=== PATIENT | female | born 1990 | race Caucasian/White ===

== ENCOUNTER 2019-10-14 16:52 | Emergency (ER) | payer MEDICAID, SELFPAY ==
[2019-10-14 16:59] VITALS: BMI 32.8
--- NOTE | 2019-10-14 17:12 | W.ED.EXTPRO ---
HPI - Extremity Problem General: Chief complaint: Extremity Injury, Upper Stated complaint: Left shoulder pain Time Seen by Provider: 10/14/19 17:12 Source: patient Mode of arrival: ambulatory Limitations: no limitations History of Present Illness: HPI Narrative: Patient is a 29-year-old female who presents to ED today with complaints of left shoulder and back pain; this seems to be an intermittent chronic problem for patient as she states she has had it for many months if not a year or so; patient saw her PCP once for this who put her on Zanaflex which seemed to help a little bit; she denies injury or trauma; she denies any radicular pain down into her arm; denies numbness, tingling, loss of sensation, weakness Complaint: joint paint Onset (ago): year(s) Pain Consistency: constant Location: left Radiation: none Exacerbating factors: nothing Associated symptoms: Reports no associated symptoms; Deny chest pain, fever(s) or rash Review of Systems Const: Denies: fever or chills Eyes: Denies: change in vision or blurry vision Card: Denies: chest pain, palpitations, irregular heart rhythm, lightheadedness, syncope or shortness of breath on exertion Resp: Denies: shortness of breath, productive cough or pain on inspiration GI: Denies: abdominal pain, nausea, vomiting, heartburn/indigestion or diarrhea : Denies: painful urination Musc: Reports: joint pain; Denies: neck pain, back pain, extremity swelling, joint swelling, redness, joint warmth, joint stiffness, limited range of motion, muscle cramps, muscle weakness, decrease in muscle mass or deformity Skin/Breast: Denies: rash Neuro: Denies: numbness in extremities, weakness in extremities or changes in sensation PFSH ED PFSH: Statuses (acute, chronic, etc) shown below reflect problem list status as previously entered and may not be historically accurate Social History Smoking and tobacco status: current every day smoker Female Reproductive History: Date of last menstrual period: 10/14/19 Physical Exam Const: COMMON NORMALS: no apparent distress, oriented x3 and alert GENERAL APPEARANCE: cooperative HENMT: COMMON NORMALS: normocephalic and head/scalp atraumatic HEAD & SCALP: normocephalic and atraumatic Neck/C-Spine: COMMON NORMALS: full ROM, no lymphadenopathy, supple and no meningeal signs Resp: COMMON NORMALS: normal respiratory effort, no retractions, no use of accessory muscles and clear to auscultation bilaterally AUSCULTATION: clear to auscultation bilaterally Cardio: COMMON NORMALS: regular rate and regular rhythm RATE: regular rate RHYTHM: regular rhythm : COMMON NORMALS: Yes no CVA tenderness BLADDER/KIDNEY EXAM: Yes no CVA tenderness Back/Pelvis: COMMON NORMALS: no CVA tenderness, thoracic and lumbar spine normal to inspection, thoraco-lumbar ROM normal and straight leg raise negative bilaterally THORACIC SPINE/UPPER BACK: Yes paraspinal muscle tenderness (pt with tenderness between lateral L scapula and thoracic vertebra) Extremity: LEFT UPPER EXTREMITY: Yes shoulder joint (full ROM; TTP lateral edge of L scapula ) Neuro: COMMON NORMALS: oriented x3 SENSORIUM/ORIENTATION: Yes alert MENINGEAL SIGNS: Yes no meningeal signs SENSORY EXAM: Yes extremities (normal bilaterally) MOTOR EXAM: strength 5/5 throughout Skin: COMMON NORMALS: no rashes or lesions noted GENERAL SKIN EXAM: no rashes or lesions noted Discharge Plan Discharge Patient Disposition: Home, Self-Care Clinical Impression: Thoracic nerve root impingement Condition: Stable Prescriptions: New cyclobenzaprine 10 mg tablet 10 mg PO TID Qty: 14 RF: 0 prednisone 10 mg tablet 60 mg PO DAILY 5 Days Qty: 30 RF: 0 Discharge Orders: Discharge Order (Routine); Ordered 10/14/19 Ordered By: Charlene Crenshaw Referrals: Abeba Zuleta FNP [Primary Care Provider] - Abimael Edmonds SENIOR OPERATIONS ANALYST [Family Provider] - Discharge Diet: Usual diet Discharge Activity: Increase activity as tolerated Activity Restrictions/Additional Instructions: Follow up with primary care as soon as possible. She may recommend physical therapy. Discharge Date/Time: 10/14/19 17:37 Coding Level of Care Code ED Supervisor Commissary Production for Chg Fwd Exam Problem Focused
== END 2019-10-14 17:37 | disposition home or self-care (01) ==
PROVIDERS: Emergency Provider Physician Assistant; Family Provider Nurse Practitioner Family; PCP Nurse Practitioner Family
DX: G54.8 Other nerve root and plexus disorders (principal); F17.210 Nicotine dependence, cigarettes, uncomplicated
CPT/HCPCS: 99281

== ENCOUNTER 2019-11-30 12:10 | Outpatient (CLI) | payer MEDICAID, SELFPAY ==
--- NOTE | 2019-11-30 12:24 | XR_ITS ---
WS: [id number] XR shoulder LT min 2V* [id number] REASON FOR EXAM: PAIN L SHOULDER FINDINGS: The acromioclavicular joint was normal. The glenoid humeral articulations normal. The scapula and clavicle show no fractures. XR/XR shoulder LT min 2V* [id number] IMPRESSION: Negative left shoulder.
== END 2019-11-30 12:11 | disposition home or self-care (01) ==
LOC: RAD 12:17
PROVIDERS: Family Provider Nurse Practitioner Family; PCP Nurse Practitioner Family; Visit Provider Nurse Practitioner Family
DX: M25.512 Pain in left shoulder (principal)
CPT/HCPCS: 73030

== ENCOUNTER 2020-02-15 11:40 | Emergency (ER) | payer MEDICAID, SELFPAY ==
[2020-02-15 11:42] VITALS: BMI 35.5
--- NOTE | 2020-02-15 11:44 | ECG_ITS ---
Measurements Intervals [place] Rate: 87 P: 62 [place]: 150 QRS: 22 QRSD: 82 T: 28 QT: 318 QTc: 383 SINUS RHYTHM LEFT ATRIAL ENLARGEMENT [-0.15mV P WAVE IN V1/V2] NONSPECIFIC T-WAVE ABNORMALITY Compared to ECG 12/17/2017 01:38:47 Atrial abnormality now present T-wave abnormality now present Electronically Signed On 02-15-2020 14:15:54 CDT by Kandy Alvarenga M.D. [id number]
--- NOTE | 2020-02-15 11:44 | W.ED.CHESTPA ---
HPI - Chest Pain General: Chief Complaint: Arrhythmia/Palpitations Stated Complaint: symptomatic SVT Time Seen by Provider: 02/15/20 11:41 Source: patient and EMS Mode of arrival: EMS Limitations: no limitations History of Present Illness: HPI narrative: 29-year-old female states she had a history of palpitations in the past. Patient states she start having palpitations this morning at 9 AM. When EMS arrived she was in SVT and has EKG showing SVT. Patient given adenosine and is since converted. States she currently feels much improved and has no symptoms. She said during her palpitations she did have some chest pain. She denies any shortness of breath. She denies any fever or cough. MD complaint: chest pain Associated symptoms: Reports palpitations; Deny abdominal pain, dyspnea, fever(s), nausea or vomiting Review of Systems Const: Denies: fever, chills, body aches or change in appetite Eyes: Denies: blurry vision or eye discomfort ENMT: Denies: throat pain or dental pain Card: Reports: chest pain and palpitations Resp: Denies: shortness of breath GI: Denies: abdominal pain, nausea, vomiting or diarrhea : Denies: painful urination Musc: Denies: neck pain or back pain Skin/Breast: Denies: rash Neuro: Denies: headache Psych: Denies: depression Felix/Lymph: Denies: easy bruising All/Imm: Denies: hives PFSH ED PFSH: Social History Smoking and tobacco status: current every day smoker Female Reproductive History: Date of last menstrual period: 10/14/19 Physical Exam Const: COMMON NORMALS: no apparent distress, oriented x3 and healthy appearing HENMT: COMMON NORMALS: normocephalic and head/scalp atraumatic HEAD & SCALP: normocephalic and atraumatic Eye: COMMON NORMALS: PERRL and EOMs intact bilaterally PUPIL: Yes PERRL Neck/C-Spine: COMMON NORMALS: full ROM and supple Chest: COMMONS NORMALS: inspection of chest normal and palpation of chest normal Resp: COMMON NORMALS: normal respiratory effort, no retractions, no use of accessory muscles and clear to auscultation bilaterally AUSCULTATION: clear to auscultation bilaterally Cardio: COMMON NORMALS: regular rate, regular rhythm and no murmurs RATE: regular rate RHYTHM: regular rhythm GI: COMMON NORMALS: normal to inspection, nondistended, normoactive bowel sounds, soft to palpation, non-tender and no masses PALPATION: Yes soft Extremity: COMMON NORMALS: normal to inspection and full ROM Neuro: COMMON NORMALS: oriented x3, moves all extremities and no focal motor deficits Psych: COMMON NORMALS: mental status grossly normal, thought process normal and cooperative THOUGHT PROCESS: normal thought process Skin: COMMON NORMALS: no rashes or lesions noted and no wounds GENERAL SKIN EXAM: no rashes or lesions noted Course Vital Signs: Vital signs: Vital Signs Temperature 97.8 F 02/15/20 11:52 Pulse Rate 74 02/15/20 12:41 Respiratory Rate 14 02/15/20 12:41 Blood Pressure 97/69 02/15/20 12:41 Pulse Oximetry 99 02/15/20 12:41 MDM - Chest Pain MDM Narrative: Medical decision making narrative: 29-year-old female presents here with SVT. Patient was converted in route. Patient has been normal sinus rhythm here and has had no symptoms. EKG and x-ray are normal. Patient stable for discharge and will get her follow-up with Dr. Ferrer the next . Patient is return if worsening. Imaging Data^: CXR: Radiologist's impression: [place] [address] XRay Report Signed Patient: Noemi Tran Unit #: [id number] : 1990 Age/Sex: 29 / F ADM Date: 02/15/20 Loc: ER Room/Bed: Attending Dr: Ordering Provider/Ordering MD: Jonas Brownlee MD Date of Service: 02/15/20 Procedure(s): XR chest 1V portable [id number] Accession Number(s): [id number] Report Number: [id number] WS: [id number] XR chest 1V portable [id number] REASON FOR EXAM: cp FINDINGS: The heart and mediastinal interfaces are normal. The lung lee are well aerated. No pneumonia, pulmonary edema, pleural effusion, pneumothorax, or mass effect. The hilum and apices are normal. XR/XR chest 1V portable [id number] IMPRESSION: Negative chest for active pathology. EKG Data^: EKG 1: Attestation: I personally reviewed and interpreted this EKG as follows: EKG interpretation date: 02/15/20 EKG interpretation time: 11:53 Interpretation: nsr hr [address] or t wave abnormalities qrs 82 qtc 362 Discharge Plan Discharge Patient Disposition: Home, Self-Care Clinical Impression: Supraventricular tachycardia Condition: Stable Prescriptions: No Action tizanidine 4 mg tablet 4 mg PO TID PRN (Reason: Muscle Pain) RF: 0 levothyroxine 50 mcg Tablet 50 mcg PO DAILY RF: 0 ergocalciferol (vitamin D2) 1,250 mcg (50,000 unit) capsule 1,250 mcg PO Q7D RF: 0 ProAir HFA 90 mcg/actuation HFA aerosol inhaler 2 puff INHALATION Q6H PRN (Reason: Shortness Of Breath) RF: 0 Vitamin Plus Low Iron 27 mg iron- 1 mg tablet 1 tab PO DAILY RF: 0 Aimovig Autoinjector 140 mg/mL auto-injector 140 mg SUBCUT Q30D RF: 0 Discharge Orders: Discharge Order (Routine); Ordered 02/15/20 Ordered By: Jonas Brownlee Referrals: Kandy Alvarenga MD [Physician] - 02/22/20 12:45 pm Abimael Edmonds APN [Primary Care Provider] - Discharge Diet: Advance as tolerated Discharge Activity: Resume usual activity Patient Instructions: Supraventricular Tachycardia (ED), Valsalva Maneuver (ED) Discharge Date/Time: 02/15/20 12:42 Coding Level of Care Code ED Principal Java Software Engineer for Chg Fwd Exam Comprehensive
--- NOTE | 2020-02-15 11:50 | XR_ITS ---
WS: [id number] XR chest 1V portable [id number] REASON FOR EXAM: cp FINDINGS: The heart and mediastinal interfaces are normal. The lung lee are well aerated. No pneumonia, pulmonary edema, pleural effusion, pneumothorax, or m ass effect. The hilum and apices are normal. XR/XR chest 1V portable [id number] IMPRESSION: Negative chest for active pathology.
[2020-02-15 11:52] VITALS: BP 124/86; PULSE 90; RESP 16; TEMP 36.6; O2SAT 97
--- NOTE | 2020-02-15 12:30 | DCPLANNER ---
manager operational was asked to schedule a follow up appointment for patient with Dr. Alvarenga, at [facility]. manager operational called [facility], spoke with Natalie, a follow up appointment was scheduled for February at 12:[address] Alvarenga. Patient was still in ED when telephonic nurse case manager got appointment, telephonic nurse case manager informed patient of the scheduled appointment.
[2020-02-15 12:41] VITALS: BP 97/69; PULSE 74; RESP 14; O2SAT 99
--- NOTE | 2020-03-28 14:37 | DCPLANNER ---
Patient did attend appointment with [facility].
== END 2020-02-15 12:42 | disposition home or self-care (01) ==
PROVIDERS: Emergency Provider Emergency Medicine; PCP Nurse Practitioner Family
DX: I47.1 Supraventricular tachycardia (principal); F17.210 Nicotine dependence, cigarettes, uncomplicated
CPT/HCPCS: 12345; 71045; 93005; 99282; 99283

== ENCOUNTER 2020-03-04 02:04 | Emergency (ER) | payer MEDICAID, SELFPAY ==
[2020-03-04 02:06] VITALS: BP 112/74; PULSE 86; RESP 18; TEMP 36.9; O2SAT 98; BMI 32.9
--- NOTE | 2020-03-04 02:11 | XR_ITS ---
WS: [id number] PORTABLE CHEST HISTORY: Acute onset of chest pain. COMPARISON: 02/15/2020 Lungs are clear and well expanded. No pleural effusion or pneumothorax. Cardiac size: Normal. Mediastinum/Aorta: Normal mediastinum. No osseous abnormality seen. XR/XR chest 1V portable [id number] IMPRESSION: Unremarkable portable chest.
[2020-03-04 02:23] LABS: Basophils % 0.3 %; Eosinophils # 0.1 10^3/uL (0.0-0.8); Eosinophils % 1.2 %; Hematocrit 41.5 % (37.0-47.0); Hemoglobin 13.8 g/dL (11.5-15.3); Lymphocytes # 2.6 10^3/uL (0.8-4.8); Mean Corpuscular HGB Conc 33.3 g/dL (30.0-36.0); Mean Corpuscular Hemoglobin 31.8 pg (28.0-34.0); Mean Corpuscular Volume 95.6 fL (81-99); Mean Platelet Volume 10.3 fL (7.4-10.4); Monocytes # 0.7 10^3/uL (0.2-0.9); Neutrophils % 53.4 %; Nucleated Red Blood Cells % 0 %; Platelet Count 253 10^3/cmm (130-400); Red Blood Count 4.34 10^6/uL (4.1-5.3); Red Cell Distribution Width 12.1 % (12.1-15.1); White Blood Count 7.4 10^3/uL (4.0-10.0)
--- NOTE | 2020-03-04 02:28 | ED_ITS ---
HPI - Chest Pain General: Chief Complaint: Chest Pain Stated Complaint: CP Time Seen by Provider: 03/04/20 02:10 History of Present Illness: HPI narrative: 29-year-old female with a history of SVT. She was placed on metoprolol recently, but she was becoming hypotensive with it, so she stopped 2 days ago. She presents after period of low blood pressure at home, 90/60, with symptoms of numbness and tingling to the right side of her face and arm. She also had some chest discomfort. The symptoms are now mostly resolved, except that she still has some mild right-sided facial numbness. MD complaint: chest discomfort and other Pertinent past history: other (SVT) Onset (ago): hour(s) Prior episodes: Yes Onset: during rest and during exertion Pain location: substernal Relieving factors: nothing Context: recent illness Associated symptoms: Deny dyspnea, fever(s), leg edema, nausea or palpitations Review of Systems Const: Denies: fever(s) Eyes: Denies: change in vision or blurry vision ENMT: Denies: odynophagia, swelling of lips/tongue, bleeding gums, dental pain, change in hearing, epistaxis, post nasal drip or sinus pain Card: Denies: chest pain, palpitations, irregular heart rhythm, edema, swelling of feet/ankles, dyspnea on exertion or orthopnea Resp: Denies: dyspnea, productive cough, non-productive cough or wheezing GI: Denies: nausea : Denies: dysuria, urinary frequency, urinary urgency or hematuria Musc: Denies: neck pain, back pain, joint redness or joint warmth Skin/Breast: Denies: rash, pruritus or erythema Neuro: Denies: headache(s), dizziness, vertigo, confusion or seizure-like activity Psych: Denies: anxiety PFSH ED PFSH: Medical History (Updated 03/04/20 @ 03:41 by Sravan Welsh DO) Anxiety Asthma Family History Other CAD (coronary artery disease) Cancer Social History Smoking and tobacco status: current every day smoker cigarettes Packs smoked per day: 0.25 Alcohol intake: current Alcohol intake frequency: holidays/special occasions only Female Reproductive History: Date of last menstrual period: 01/17/20 Physical Exam Const: GENERAL APPEARANCE: well developed ORIENTATION/CONSCIOUSNESS: Yes oriented to person, Yes oriented to place and Yes oriented to time HENMT: COMMON NORMALS: normocephalic, external ears normal and Normal external nose present HEAD & SCALP: normocephalic; no scalp tenderness FACE & SINUS: normal facial exam NOSE: Normal external nose present and No nasal discharge present EXTERNAL EAR: Yes external ears normal MOUTH: tongue normal Eye: COMMON NORMALS: Equal, round and reactive pupils present, EOMs intact bilaterally and conjunctivae normal EYELID: eyelids normal CONJUNCTIVA: Yes conjunctivae normal PUPIL: Yes Equal, round and reactive pupils present Neck/C-Spine: GENERAL: No tracheal deviation Chest: COMMONS NORMALS: normal inspection of the chest CHEST: No tenderness Resp: COMMON NORMALS: clear to auscultation bilaterally EFFORT & INSPECTION: No tachypneic, No respiratory distress, No retractions, No uses accessory muscles and No tracheal deviation AUSCULTATION: clear to auscultation bilaterally, no rhonchi, no wheezes and lung sounds not diminished Cardio: COMMON NORMALS: regular rate and regular rhythm RATE: regular rate RHYTHM: regular rhythm HEART SOUNDS: no murmurs PERIPHERAL PULSES: radial pulses present GI: INSPECTION: No abdominal distension AUSCULTATION: No Hyperactive bowel sounds present and No Hypoactive bowel sounds present PALPATION: No Guarding due to palpation present (GI) and No Rigid due to palpation PERCUSSION: no dullness to percussion and no tympanic to percussion Neuro: SENSORIUM/ORIENTATION: Yes oriented to person, Yes oriented to place and Yes oriented to time CRANIAL NERVES: Yes CN normal except as noted COORDINATION/BALANCE: [id number] test normal SPEECH: speech normal SENSORY EXAM: Yes extremities (intact) MOTOR EXAM: Pronator motor function not present COORDINATION: [id number] test normal Psych: COMMON NORMALS: mental status grossly normal Skin: COMMON NORMALS: no rashes or lesions noted GENERAL SKIN EXAM: no rashes or lesions noted Course Vital Signs: Vital signs: Vital Signs Temperature 98.4 F 03/04/20 02:06 Pulse Rate 86 03/04/20 02:06 Respiratory Rate 18 03/04/20 02:06 Blood Pressure 112/74 03/04/20 02:06 Pulse Oximetry 98 03/04/20 02:06 MDM - Chest Pain MDM Narrative: Medical decision making narrative: The patient's symptoms are essentially gone. Her blood pressure is 105/75. She is getting a liter of fluid. Head CT is negative. Chest x-ray is negative. Labs are benign. No arrhythmias on the monitor. EKG is normal. She will be allowed discharge. Lab Data: Labs: Lab Results 03/04/20 03/04/20 03/04/20 Range/Units 02:16 02:16 02:16 WBC 7.4 (4.0-10.0) 10^3/ uL RBC 4.34 (4.1-5.3) 10^6/u L Hgb 13.8 (11.5-15.3) g/dL Hct 41.5 (37.0-47.0) % MCV 95.6 (81-99) fL MCH 31.8 (28.0-34.0) pg MCHC 33.3 (30.0-36.0) g/dL RDW 12.1 (12.1-15.1) % Plt Count 253 (130-400) 10^3/c mm MPV 10.3 (7.4-10.4) fL Neut % (Auto) 53.4 % Lymph % (Auto) 35.0 % Elbert % (Auto) 10.0 % Eos % (Auto) 1.2 % Baso % (Auto) 0.3 % Neut # (Auto) 4.0 (1.8-7.7) 10^3/u L Lymph # (Auto) 2.6 (0.8-4.8) 10^3/u L Elbert # (Auto) 0.7 (0.2-0.9) 10^3/u L Eos # (Auto) 0.1 (0.0-0.8) 10^3/u L Baso # (Auto) 0.0 (0.0-0.1) 10^3/u L Nucleated RBC % (a uto) 0 % Nucleated RBCs # 0.0 /100WBC Sodium 138 (136-145) mmol/L Potassium 3.5 (3.5-5.1) mmol/L Chloride 103 (98-107) mmol/L Carbon Dioxide 23 (22-29) mmol/L Anion Gap 15.5 (5-19) BUN 11 (6-20) mg/dL Creatinine 0.6 (0.5-0.9) mg/dL GFR Calculation 117.4 (90-130) mL/min Glucose 113 (65-115) mg/dL Calculated Osmolal ity 283 L (285-295) mOsm/k g Calcium 8.8 (8.5-10.5) mg/dL Total Bilirubin 0.2 (0.15-1.2) mg/dL AST 15 (0-32) U/L ALT 15 (0-33) U/L Alkaline Phosphata se 77 (35-105) IU/L Troponin T Baselin e 6 (0-10) ng/mL Total Protein 6.4 L (6.6-8.7) g/dL Albumin 4.2 (3.5-5.2) g/dL Globulin 2.2 (1.3-4.6) g/dL Discharge Plan Discharge Patient Disposition: Home, Self-Care Clinical Impression: Hypotension Qualifiers: Hypotension type: unspecified hypotension type Qualified Code(s): I95.9 - Hypotension, unspecified Condition: Stable Prescriptions: No Action Aimovig Autoinjector 140 mg/mL auto-injector 140 mg SUBCUT Q30D Qty: 1 RF: 3 tizanidine 4 mg tablet 4 mg PO TID PRN (Reason: Muscle Pain) RF: 0 levothyroxine 50 mcg Tablet 50 mcg PO DAILY RF: 0 ergocalciferol (vitamin D2) 1,250 mcg (50,000 unit) capsule 1,250 mcg PO Q7D RF: 0 albuterol sulfate [ProAir HFA] 90 mcg/actuation HFA aerosol inhaler 2 puff INHALATION Q6H PRN (Reason: Shortness Of Breath) RF: 0 Vitamin Plus Low Iron 27 mg iron- 1 mg tablet 1 tab PO DAILY RF: 0 Discharge Orders: Discharge Order (Routine); Ordered 03/04/20 Ordered By: Sravan Welsh Referrals: Abimael Edmonds BOX BLANK MACHINE FEEDER [Primary Care Provider] - 4-7 days Discharge Diet: Usual diet Discharge Activity: Resume usual activity Patient Instructions: Hypotension (ED) Activity Restrictions/Additional Instructions: Return for repeated episodes of chest discomfort, dizziness, weakness or numbness. Monitor your blood pressure twice daily. Record numbers and give them to your doctor. continue to hold off of your metoprolol until reevaluated by your doctor. Coding Level of Care Code ED Waste Handling Technician for Chg Fwd Exam Comprehensive
--- NOTE | 2020-03-04 02:29 | CTR_ITS ---
PROCEDURE INFORMATION: Exam: CT Head Without Contrast Exam date and time: 03/04/2020 2:41 AM Age: 29 years old Clinical indication: Numbness / parasthesia; Right; Additional info: Numbness R side TECHNIQUE: Imaging protocol: Computed tomography of the head without contrast. Radiation optimization: All CT scans at this facility use at least one of these dose optimization techniques: automated exposure control; mA and/or kV adjustment per patient size (includes targeted exams where dose is matched to clinical indication); or iterative reconstruction. COMPARISON: No relevant prior studies available. RADIATION DOSE METRICS: Total DLP: 797.96 mGy-cm FINDINGS: Brain: Normal. No hemorrhage. Unremarkable white matter. No mass effect. Ventricles: Normal. No ventriculomegaly. Bones/joints: No acute findings. Sinuses: Visualized sinuses are unremarkable. No fluid levels. Mastoid air cells: Visualized mastoid air cells are well aerated. Soft tissues: Unremarkable. CT/CT head wo con* [id number] IMPRESSION: No acute intracranial abnormality. Radiation Dose CTDIVOL = (mGy): DLP = 797.96 (mGy-cm)
[2020-03-04 02:39] LABS: Alanine Aminotransferase 15 U/L (0-33); Albumin Level 4.2 g/dL (3.5-5.2); Alkaline Phosphatase 77 IU/L (35-105); Anion Gap 15.5 (5-19); Aspartate Amino Transferase 15 U/L (0-32); Blood Urea Nitrogen 11 mg/dL (6-20); Calcium 8.8 mg/dL (8.5-10.5); Carbon Dioxide 23 mmol/L (22-29); Chloride 103 mmol/L (98-107); Globulin 2.2 g/dL (1.3-4.6); Glomerular Filtration Rate 117.4 mL/min (90-130); Glucose 113 mg/dL (65-115); Osmolality Calculated 283 mOsm/kg (285-295); Potassium 3.5 mmol/L (3.5-5.1); Sodium 138 mmol/L (136-145); Total Bilirubin 0.2 mg/dL (0.15-1.2); Total Protein 6.4 g/dL (6.6-8.7)
[2020-03-04 02:41] LABS: Troponin(5th) Baseline 6 ng/mL (0-10)
[2020-03-04] MEDS: sodium chloride 0.9% 1,000 ML 999 ML IV (03:49)
[2020-03-04 04:46] VITALS: BP 104/62; PULSE 57; RESP 17; O2SAT 100
== END 2020-03-04 04:48 | disposition home or self-care (01) ==
PROVIDERS: Emergency Provider Emergency Medicine; PCP Nurse Practitioner Family
DX: I95.9 Hypotension, unspecified (principal); F17.210 Nicotine dependence, cigarettes, uncomplicated
CPT/HCPCS: 12345; 70450; 71045; 80053; 84484; 85025; 96360; 99281; 99284; J7030

== ENCOUNTER 2020-04-16 11:06 | Emergency (ER) | payer MEDICAID, SELFPAY ==
[2020-04-16 11:07] VITALS: RESP 14; BMI 32.4
--- NOTE | 2020-04-16 11:09 | ECG_ITS ---
[facility] Test Date: 2020-04-16 Pat Name: Noemi Patel Department: Room: Gender: Female Financial Services Education Consultant: : 1990 Requested By: Jonas Brownlee Order Number: [id number] Chandana MD: Ramirez Valencia M.D. Measurements Intervals [place] Rate: 80 P: 57 [place]: 161 QRS: 22 QRSD: 75 T: 30 QT: 328 QTc: 380 Interpretive Statements SINUS RHYTHM WITH SINUS ARRHYTHMIA POSSIBLE LEFT ATRIAL ENLARGEMENT [-0.1mV P WAVE IN V1/V2] Compared to ECG 02/15/2020 11:53:40 T-wave abnormality no longer present Electronically Signed On 04-16-2020 16:55:14 CDT by Ramirez Valencia M.D. [email or web address] regional medical [email or web address] Colorour lady of mercy hospital - [id number] f
--- NOTE | 2020-04-16 11:09 | XRR_ITS ---
PROCEDURE INFORMATION: Exam: XR Chest, 1 View Exam date and time: 04/16/2020 11:53 AM Age: 29 years old Clinical indication: Type not specified; Patient HX: C/O chest pain/shortness of breath; Additional info: Cp TECHNIQUE: Imaging protocol: XR of the chest Views: 1 view. COMPARISON: CR XR chest 1V portable [id number] 03/04/2020 2:38 AM FINDINGS: Lungs: Mild interstitial prominence without acute airspace disease. Pleural space: No pleural effusion. Heart/Mediastinum: No cardiomegaly. Bones/joints: Unremarkable. XR/XR chest 1V portable [id number] IMPRESSION: No acute airspace or pleural disease.
--- NOTE | 2020-04-16 11:12 | ED_ITS ---
HPI - Arrhythmia/Palpitations General: Chief Complaint: Chest Pain Stated Complaint: CHEST PAIN Time Seen by Provider: 04/16/20 11:09 Source: patient and EMS Mode of arrival: EMS Limitations: no limitations History of Present Illness: HPI narrative: 29-year-old female who states she has a history of SVT states she had heart racing roughly 2 to 3 hours. States her heart rate was in the 130s and 140s. States she felt anxious as well and had some numbness in her extremities. Patient states that it resolved and then had another episode an hour ago that is since resolved as well. She denies any complaints currently but wanted to have her heart checked out. She denies any chest pain or fevers. MD complaint: heart racing Associated symptoms: Deny nausea or vomiting Review of Systems Const: Denies: fever(s), chills, body aches or change in appetite Eyes: Denies: blurry vision or eye discomfort ENMT: Denies: throat pain or dental pain Card: Reports: palpitations Resp: Denies: dyspnea GI: Denies: abdominal pain, nausea, vomiting or diarrhea : Denies: dysuria Musc: Denies: neck pain or back pain Skin/Breast: Denies: rash Neuro: Denies: headache(s) Psych: Denies: depression Felix/Lymph: Denies: easy bruising All/Imm: Denies: urticaria PFS ED PFSH: Medical History (Updated 04/16/20 @ 11:55 by Jonas Brownlee MD) Anxiety Asthma Family History Other CAD (coronary artery disease) Cancer Social History Smoking and tobacco status: current every day smoker cigarettes Packs smoked per day: 0.25 Alcohol intake: current Alcohol intake frequency: holidays/special occasions only Female Reproductive History: Date of last menstrual period: 01/17/20 Physical Exam Const: COMMON NORMALS: no acute distress, patient oriented x3 and healthy appearing HENMT: COMMON NORMALS: normocephalic and atraumatic HEAD & SCALP: normocephalic and atraumatic Eye: COMMON NORMALS: Equal, round and reactive pupils present and EOMs intact bilaterally PUPIL: Yes Equal, round and reactive pupils present Neck/C-Spine: COMMON NORMALS: full ROM and supple Chest: COMMONS NORMALS: normal inspection of the chest and normal palpation of entire chest wall Resp: COMMON NORMALS: normal respiratory effort, No retractions, No use of accessory muscles and clear to auscultation bilaterally AUSCULTATION: clear to auscultation bilaterally Cardio: COMMON NORMALS: regular rate, regular rhythm and No murmurs present (Cardio) RATE: regular rate RHYTHM: regular rhythm GI: COMMON NORMALS: Normal to inspection, nondistended, normoactive bowel sounds present, Soft to palpation, non-tender and no masses PALPATION: Yes Soft to palpation Extremity: COMMON NORMALS: normal to inspection and full ROM Neuro: COMMON NORMALS: patient oriented x3, moves all extremities and no focal motor deficits Psych: COMMON NORMALS: mental status grossly normal, Normal thought process present and cooperative THOUGHT PROCESS: Normal thought process present Skin: COMMON NORMALS: no rashes or lesions noted and no wounds GENERAL SKIN EXAM: no rashes or lesions noted Course Vital Signs: Vital signs: Vital Signs Temperature 97.6 F 04/16/20 11:19 Pulse Rate 78 04/16/20 12:00 Respiratory Rate 14 04/16/20 12:00 Blood Pressure 99/59 04/16/20 12:00 Pulse Oximetry 100 04/16/20 12:00 MDM - Arrhythmia/Palpitations MDM Narrative: Medical decision making narrative: Noemi presents here with palpitations. She could had SVT earlier but EKG and rhythm here is been normal. Patient's lab work and x-ray are normal as well. She is stable for discharge and is to follow-up with primary care doctor in 3 to 5 days return if worsening. She understands and agrees to plan. Lab Data: Labs: Lab Results 04/16/20 04/16/20 04/16/20 Range/Units 11:15 11:15 11:15 WBC 7.6 (4.0-10.0) 10^3/ uL RBC 4.65 (4.1-5.3) 10^6/u L Hgb 14.3 (11.5-15.3) g/dL Hct 43.5 (37.0-47.0) % MCV 93.5 (81-99) fL MCH 30.8 (28.0-34.0) pg MCHC 32.9 (30.0-36.0) g/dL RDW 12.4 (12.1-15.1) % Plt Count 261 (130-400) 10^3/c mm MPV 10.1 (7.4-10.4) fL Neut % (Auto) 73.7 % Lymph % (Auto) 18.0 % [place] % (Auto) 7.4 % Eos % (Auto) 0.5 % Baso % (Auto) 0.3 % Neut # (Auto) 5.6 (1.8-7.7) 10^3/u L Lymph # (Auto) 1.4 (0.8-4.8) 10^3/u L [place] # (Auto) 0.6 (0.2-0.9) 10^3/u L Eos # (Auto) 0.0 (0.0-0.8) 10^3/u L Baso # (Auto) 0.0 (0.0-0.1) 10^3/u L Nucleated RBC % (a uto) 0 % Nucleated RBCs # 0.0 /100WBC Sodium 138 (136-145) mmol/L Potassium 4.0 (3.5-5.1) mmol/L Chloride 104 (98-107) mmol/L Carbon Dioxide 22 (22-29) mmol/L Anion Gap 16.0 (5-19) BUN 16 (6-20) mg/dL Creatinine 0.7 (0.5-0.9) mg/dL GFR Calculation 98.3 (90-130) mL/min Glucose 93 (65-115) mg/dL Calculated Osmolal ity 282 L (285-295) mOsm/k g Calcium 9.0 (8.5-10.5) mg/dL Total Bilirubin 0.4 (0.15-1.2) mg/dL AST 18 (0-32) U/L ALT 19 (0-33) U/L Alkaline Phosphata se 85 (35-105) IU/L Troponin T Baselin e 6 (0-10) ng/L Total Protein 7.2 (6.6-8.7) g/dL Albumin 4.5 (3.5-5.2) g/dL Globulin 2.7 (1.3-4.6) g/dL EKG Data^: EKG 1: Attestation: I personally reviewed and interpreted this EKG as follows: EKG interpretation date: 04/16/20 EKG interpretation time: 11:19 Interpretation: nsr hr [address] or t wave abnormalities qrs 75 qtc 364 Discharge Plan Discharge Patient Disposition: Home, Self-Care Clinical Impression: Palpitations Condition: Stable Prescriptions: No Action Aimovig Autoinjector 140 mg/mL auto-injector 140 mg SUBCUT Q30D Qty: 1 RF: 3 tizanidine 4 mg tablet 4 mg PO TID PRN (Reason: Muscle Pain) RF: 0 levothyroxine 50 mcg Tablet 50 mcg PO DAILY RF: 0 ergocalciferol (vitamin D2) 1,250 mcg (50,000 unit) capsule 1,250 mcg PO Q7D RF: 0 albuterol sulfate [ProAir HFA] 90 mcg/actuation HFA aerosol inhaler 2 puff INHALATION Q6H PRN (Reason: Shortness Of Breath) RF: 0 Vitamin Plus Low Iron 27 mg iron- 1 mg tablet 1 tab PO DAILY RF: 0 Discharge Orders: Discharge Order (Routine); Ordered 04/16/20 Ordered By: Jonas Brownlee Referrals: Kendal Varghese APN [Primary Care Provider] - 1-3 days Discharge Diet: Advance as tolerated Discharge Activity: Resume usual activity Patient Instructions: Palpitations (ED) Discharge Date/Time: 04/16/20 12:01 Coding Level of Care Code ED Earth Science Teacher for Chg Fwd Exam Comprehensive
[2020-04-16 11:19] VITALS: BP 110/76; PULSE 75; RESP 15; TEMP 36.4; O2SAT 95
[2020-04-16 11:24] LABS: Basophils % 0.3 %; Eosinophils % 0.5 %; Hematocrit 43.5 % (37.0-47.0); Hemoglobin 14.3 g/dL (11.5-15.3); Lymphocytes # 1.4 10^3/uL (0.8-4.8); Mean Corpuscular HGB Conc 32.9 g/dL (30.0-36.0); Mean Corpuscular Hemoglobin 30.8 pg (28.0-34.0); Mean Corpuscular Volume 93.5 fL (81-99); Mean Platelet Volume 10.1 fL (7.4-10.4); Monocytes # 0.6 10^3/uL (0.2-0.9); Monocytes % 7.4 %; Neutrophils # 5.6 10^3/uL (1.8-7.7); Neutrophils % 73.7 %; Nucleated Red Blood Cells % 0 %; Platelet Count 261 10^3/cmm (130-400); Red Blood Count 4.65 10^6/uL (4.1-5.3); Red Cell Distribution Width 12.4 % (12.1-15.1); White Blood Count 7.6 10^3/uL (4.0-10.0)
[2020-04-16 11:42] LABS: Alanine Aminotransferase 19 U/L (0-33); Albumin Level 4.5 g/dL (3.5-5.2); Alkaline Phosphatase 85 IU/L (35-105); Aspartate Amino Transferase 18 U/L (0-32); Blood Urea Nitrogen 16 mg/dL (6-20); Carbon Dioxide 22 mmol/L (22-29); Chloride 104 mmol/L (98-107); Globulin 2.7 g/dL (1.3-4.6); Glomerular Filtration Rate 98.3 mL/min (90-130); Glucose 93 mg/dL (65-115); Osmolality Calculated 282 mOsm/kg (285-295); Sodium 138 mmol/L (136-145); Total Bilirubin 0.4 mg/dL (0.15-1.2); Total Protein 7.2 g/dL (6.6-8.7)
[2020-04-16 11:43] LABS: Troponin(5th) Baseline 6 ng/L (0-10)
[2020-04-16 12:00] VITALS: BP 99/59; PULSE 78; RESP 14; O2SAT 100
== END 2020-04-16 12:01 | disposition home or self-care (01) ==
PROVIDERS: Emergency Provider Emergency Medicine; PCP Nurse Practitioner Family
DX: R00.2 Palpitations (principal); J45.909 Unspecified asthma, uncomplicated; F17.210 Nicotine dependence, cigarettes, uncomplicated
CPT/HCPCS: 12345; 36415; 71045; 80053; 84484; 85025; 93005; 96361; 96374; 99283; 99284

== ENCOUNTER 2020-04-20 04:50 | Emergency (ER) | payer MEDICAID, SELFPAY ==
[2020-04-20 04:53] VITALS: BP 135/79; PULSE 66; RESP 18; TEMP 36.8; O2SAT 99; BMI 31.3
--- NOTE | 2020-04-20 05:08 | ECG_ITS ---
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 Measurements Intervals Britt Rate: 62 P: 65 NJ: 165 QRS: 34 QRSD: 81 T: 37 QT: 370 QTc: 378 Interpretive Statements SINUS RHYTHM Compared to ECG 04/16/2020 11:19:45 Sinus arrhythmia no longer present Electronically Signed On 04-20-2020 10:27:47 CDT by Ramirez Valencia M.D. [id number]
--- NOTE | 2020-04-20 05:09 | XRR_ITS ---
PROCEDURE INFORMATION: Exam: XR Chest, 2 Views Exam date and time: 04/20/2020 5:10 AM Age: 29 years old Clinical indication: Chest pain and other: Upper back; Radiating; Additional info: Cp TECHNIQUE: Imaging protocol: XR of the chest Views: 2 views. COMPARISON: CR XR chest 1V portable [id number] 04/16/2020 11:57 AM FINDINGS: Lungs: Unremarkable. No consolidation. Pleural space: Unremarkable. No pleural effusion. No pneumothorax. Heart/Mediastinum: Unremarkable. No cardiomegaly. Bones/joints: Unremarkable. XR/XR chest 2V* [id number] IMPRESSION: No acute findings.
--- NOTE | 2020-04-20 05:22 | ED_ITS ---
HPI - Back Pain/Injury General: Chief Complaint: Back Pain/Injury Stated Complaint: back pain Time Seen by Provider: 04/20/20 04:57 History of Present Illness: HPI Narrative: 29-year-old female, with a history of SVT. She presents with onset of mid back pain yesterday, worsening through the night through this morning. She says it is present on both sides of her mid back, may be worse on her left. No known injury. She notes that it hurts to take a deep breath, although it comes in waves . At times she is pain-free, at times she is in more intense pain. She denies any cough, fever, sputum production, etc. She denies exposure to the coronavirus. She denies palpitations. MD elicited complaint: back pain Onset (ago): hour(s) Timing: intermittent Severity: moderate Similar Symptoms Previously: No Quality: aching and throbbing Location: thoracic spine Radiation: none Exacerbating factors: none Associated symptoms: Deny abdominal pain, chills, dysuria, fever(s), hematuria, nausea or vomiting Review of Systems Const: Denies: fever(s) or chills Eyes: Denies: change in vision or blurry vision ENMT: Denies: swelling of lips/tongue or sinus pain Card: Denies: chest pain or palpitations Resp: Denies: dyspnea, productive cough, non-productive cough or wheezing GI: Denies: abdominal pain, nausea or vomiting : Denies: dysuria or hematuria Musc: Reports: back pain; Denies: neck pain Skin/Breast: Denies: rash, pruritus or erythema Neuro: Denies: headache(s), dizziness or vertigo Psych: Denies: anxiety PFSH ED PFSH: Medical History (Updated 04/20/20 @ 06:21 by Sravan Welsh DO) Anxiety Asthma Family History Other CAD (coronary artery disease) Cancer Social History Smoking and tobacco status: current every day smoker cigarettes Packs smoked per day: 0.25 Alcohol intake: current Alcohol intake frequency: holidays/special occasions only Female Reproductive History: Date of last menstrual period: 01/17/20 Physical Exam Const: GENERAL APPEARANCE: well developed ORIENTATION/CONSCIOUSNESS: Yes oriented to person, Yes oriented to place and Yes oriented to time HENMT: COMMON NORMALS: normocephalic, external ears normal and Normal external nose present HEAD & SCALP: normocephalic; no scalp tenderness FACE & SINUS: normal facial exam NOSE: Normal external nose present and No nasal discharge present EXTERNAL EAR: Yes external ears normal Eye: COMMON NORMALS: Equal, round and reactive pupils present, EOMs intact bilaterally and conjunctivae normal EYELID: eyelids normal CONJUNCTIVA: Yes conjunctivae normal PUPIL: Yes Equal, round and reactive pupils present Neck/C-Spine: GENERAL: No tracheal deviation Chest: COMMONS NORMALS: normal inspection of the chest CHEST: No tenderness Resp: COMMON NORMALS: clear to auscultation bilaterally EFFORT & INSPECTION: No tachypneic, No respiratory distress, No retractions, No uses accessory muscles and No tracheal deviation AUSCULTATION: clear to auscultation bilaterally, no rhonchi, no wheezes and lung sounds not diminished Cardio: COMMON NORMALS: regular rate and regular rhythm RATE: regular rate RHYTHM: regular rhythm HEART SOUNDS: no murmurs PERIPHERAL PULSES: radial pulses present GI: INSPECTION: No abdominal distension AUSCULTATION: No Hyperactive bowel sounds present and No Hypoactive bowel sounds present PALPATION: No Guarding due to palpation present (GI) and No Rigid due to palpation PERCUSSION: no dullness to percussion and no tympanic to percussion : BLADDER/KIDNEY EXAM: No CVA tenderness Back/Pelvis: COMMON NORMALS: thoracic and lumbar spine normal to inspection GENERAL BACK: No CVA tenderness OTHER: Exam of the thoracolumbar spine reveals some tenderness in the paraspinal musculature on the left side more than the right side at the thoracolumbar junction and just superior. There is no real midline tenderness. There is no rib tenderness. No anterior chest wall tenderness. Neuro: SENSORIUM/ORIENTATION: Yes oriented to person, Yes oriented to place and Yes oriented to time Psych: COMMON NORMALS: mental status grossly normal Skin: COMMON NORMALS: no rashes or lesions noted GENERAL SKIN EXAM: no rashes or lesions noted Course Vital Signs: Vital signs: Vital Signs Temperature 98.2 F 04/20/20 04:53 Pulse Rate 66 04/20/20 04:53 Respiratory Rate 18 04/20/20 04:53 Blood Pressure 135/79 04/20/20 04:53 Pulse Oximetry 99 04/20/20 04:53 MDM - Back Pain/Injury MDM Narrative: Medical decision making narrative: 29-year-old female with thoracic pain. Her EKG shows a normal sinus rhythm. Her troponin is 6. Her d- dimer is negative. Her laboratory is negative. Her chest x-ray shows no acute findings she will be allowed home. Lab Data: Labs: Lab Results 04/20/20 04/20/20 04/20/20 Range/Units 05:25 05:25 05:25 WBC 7.8 (4.0-10.0) 10^3/ uL RBC 4.53 (4.1-5.3) 10^6/u L Hgb 14.1 (11.5-15.3) g/dL Hct 41.8 (37.0-47.0) % MCV 92.3 (81-99) fL MCH 31.1 (28.0-34.0) pg MCHC 33.7 (30.0-36.0) g/dL RDW 12.2 (12.1-15.1) % Plt Count 293 (130-400) 10^3/c mm MPV 10.6 H (7.4-10.4) fL Neut % (Auto) 57.7 % Lymph % (Auto) 31.2 % [place] % (Auto) 9.1 % Eos % (Auto) 1.5 % Baso % (Auto) 0.4 % Neut # (Auto) 4.49 (1.8-7.7) 10^3/u L Lymph # (Auto) 2.4 (0.8-4.8) 10^3/u L [place] # (Auto) 0.7 (0.2-0.9) 10^3/u L Eos # (Auto) 0.1 (0.0-0.8) 10^3/u L Baso # (Auto) 0.0 (0.0-0.1) 10^3/u L Nucleated RBC % (a uto) 0 % Nucleated RBCs # 0.0 /100WBC D-Dimer 0.34 (0-0.59) ug/mIFE U Sodium 139 (136-145) mmol/L Potassium 4.0 (3.5-5.1) mmol/L Chloride 105 (98-107) mmol/L Carbon Dioxide 22 (22-29) mmol/L Anion Gap 16.0 (5-19) BUN 13 (6-20) mg/dL Creatinine 0.6 (0.5-0.9) mg/dL GFR Calculation 117.4 (90-130) mL/min Glucose 105 (65-115) mg/dL Calculated Osmolal ity 285 (285-295) mOsm/k g Calcium 9.1 (8.5-10.5) mg/dL Total Bilirubin 0.2 (0.15-1.2) mg/dL AST 18 (0-32) U/L ALT 21 (0-33) U/L Alkaline Phosphata se 89 (35-105) IU/L Troponin T Gen 5 n g/L (0-10) ng/L Total Protein 6.6 (6.6-8.7) g/dL Albumin 4.5 (3.5-5.2) g/dL Globulin 2.1 (1.3-4.6) g/dL 04/20/20 Range/Units 05:25 WBC (4.0-10.0) 10^3/ uL RBC (4.1-5.3) 10^6/u L Hgb (11.5-15.3) g/dL Hct (37.0-47.0) % MCV (81-99) fL MCH (28.0-34.0) pg MCHC (30.0-36.0) g/dL RDW (12.1-15.1) % Plt Count (130-400) 10^3/c mm MPV (7.4-10.4) fL Neut % (Auto) % Lymph % (Auto) % [place] % (Auto) % Eos % (Auto) % Baso % (Auto) % Neut # (Auto) (1.8-7.7) 10^3/u L Lymph # (Auto) (0.8-4.8) 10^3/u L [place] # (Auto) (0.2-0.9) 10^3/u L Eos # (Auto) (0.0-0.8) 10^3/u L Baso # (Auto) (0.0-0.1) 10^3/u L Nucleated RBC % (a uto) % Nucleated RBCs # /100WBC D-Dimer (0-0.59) ug/mIFE U Sodium (136-145) mmol/L Potassium (3.5-5.1) mmol/L Chloride (98-107) mmol/L Carbon Dioxide (22-29) mmol/L Anion Gap (5-19) BUN (6-20) mg/dL Creatinine (0.5-0.9) mg/dL GFR Calculation (90-130) mL/min Glucose (65-115) mg/dL Calculated Osmolal ity (285-295) mOsm/k g Calcium (8.5-10.5) mg/dL Total Bilirubin (0.15-1.2) mg/dL AST (0-32) U/L ALT (0-33) U/L Alkaline Phosphata se (35-105) IU/L Troponin T Gen 5 n g/L 6 (0-10) ng/L Total Protein (6.6-8.7) g/dL Albumin (3.5-5.2) g/dL Globulin (1.3-4.6) g/dL Discharge Plan Discharge Patient Disposition: Home, Self-Care Clinical Impression: Thoracic back pain Qualifiers: Chronicity: acute Back pain laterality: bilateral Qualified Code(s): M54.6 - Pain in thoracic spine Condition: Stable Prescriptions: New ketorolac 10 mg tablet 10 mg PO Q6H PRN (Reason: pain) Qty: 10 RF: 0 No Action Aimovig Autoinjector 140 mg/mL auto-injector 140 mg SUBCUT Q30D Qty: 1 RF: 3 tizanidine 4 mg tablet 4 mg PO TID PRN (Reason: Muscle Pain) RF: 0 levothyroxine 50 mcg Tablet 50 mcg PO DAILY RF: 0 ergocalciferol (vitamin D2) 1,250 mcg (50,000 unit) capsule 1,250 mcg PO Q7D RF: 0 albuterol sulfate [ProAir HFA] 90 mcg/actuation HFA aerosol inhaler 2 puff INHALATION Q6H PRN (Reason: Shortness Of Breath) RF: 0 Vitamin Plus Low Iron 27 mg iron- 1 mg tablet 1 tab PO DAILY RF: 0 Discharge Orders: Discharge Order (Routine); Ordered 04/20/20 Ordered By: Sravan Welsh Referrals: Kendal Varghese APN [Primary Care Provider] - 4-7 days Discharge Diet: Usual diet Discharge Activity: Increase activity as tolerated Patient Instructions: Thoracic Pain (ED), Back Pain (ED) Activity Restrictions/Additional Instructions: Return for fever, cough, worsening shortness of breath, pain in your chest, other concerning symptoms. Medication as directed. Coding Level of Care Code ED Supervisor Laboratory Animal Facility for Gmg Fwd Exam Comprehensive
[2020-04-20] MEDS: ketorolac 30 mg/mL INJ IVP (05:30)
[2020-04-20 05:58] LABS: Basophils % 0.4 %; Eosinophils # 0.1 10^3/uL (0.0-0.8); Eosinophils % 1.5 %; Hematocrit 41.8 % (37.0-47.0); Hemoglobin 14.1 g/dL (11.5-15.3); Lymphocytes # 2.4 10^3/uL (0.8-4.8); Lymphocytes % 31.2 %; Mean Corpuscular HGB Conc 33.7 g/dL (30.0-36.0); Mean Corpuscular Hemoglobin 31.1 pg (28.0-34.0); Mean Corpuscular Volume 92.3 fL (81-99); Mean Platelet Volume 10.6 fL (7.4-10.4); Monocytes # 0.7 10^3/uL (0.2-0.9); Monocytes % 9.1 %; Neutrophils # 4.49 10^3/uL (1.8-7.7); Neutrophils % 57.7 %; Nucleated Red Blood Cells % 0 %; Platelet Count 293 10^3/cmm (130-400); Red Blood Count 4.53 10^6/uL (4.1-5.3); Red Cell Distribution Width 12.2 % (12.1-15.1); White Blood Count 7.8 10^3/uL (4.0-10.0)
[2020-04-20 06:09] LABS: D Dimer 0.34 ug/mIFEU (0-0.59)
[2020-04-20 06:13] LABS: Alanine Aminotransferase 21 U/L (0-33); Albumin Level 4.5 g/dL (3.5-5.2); Alkaline Phosphatase 89 IU/L (35-105); Aspartate Amino Transferase 18 U/L (0-32); Blood Urea Nitrogen 13 mg/dL (6-20); Calcium 9.1 mg/dL (8.5-10.5); Carbon Dioxide 22 mmol/L (22-29); Chloride 105 mmol/L (98-107); Globulin 2.1 g/dL (1.3-4.6); Glomerular Filtration Rate 117.4 mL/min (90-130); Glucose 105 mg/dL (65-115); Osmolality Calculated 285 mOsm/kg (285-295); Sodium 139 mmol/L (136-145); Total Bilirubin 0.2 mg/dL (0.15-1.2); Total Protein 6.6 g/dL (6.6-8.7)
[2020-04-20 06:14] LABS: Troponin T (5th) Once 6 ng/L (0-10)
[2020-04-20 06:32] VITALS: BP 130/76; PULSE 66; RESP 18; O2SAT 97
--- NOTE | 2020-04-20 06:34 | PC.NURSE ---
i agree with this assessment
== END 2020-04-20 06:34 | disposition home or self-care (01) ==
PROVIDERS: Emergency Provider Emergency Medicine; PCP Nurse Practitioner Family
DX: M54.6 Pain in thoracic spine (principal); F17.210 Nicotine dependence, cigarettes, uncomplicated
CPT/HCPCS: 12345; 71046; 80053; 84484; 85025; 85378; 93005; 96374; 99282; 99284; J1885

== ENCOUNTER 2020-08-03 15:05 | Emergency (ER) | payer MEDICAID, SELFPAY ==
[2020-08-03 15:55] VITALS: BP 119/61; PULSE 79; RESP 18; TEMP 36.8; O2SAT 100; BMI 30.4
--- NOTE | 2020-08-03 15:58 | ED_ITS ---
HPI - Skin/Abscess/Foreign Bdy General: Chief complaint: Skin/Abscess/Foreign Body Stated complaint: RASH ON WHOLE BODY Time Seen by Provider: 08/03/20 15:58 History of Present Illness: HPI narrative: Patient is a 30-year-old female comes to the ED with pruritic rash. Patient says pruritic rash started about a week ago. It is predominantly on her back and between her shoulder blades and on her chest. It is not painful or red. She says she can feel little bumps with the rash, but rash is not visible. Denies any recent change in soaps, detergents, lotions or new environmental contacts. Currently patient says her eyes are feeling itchy. She describes taking some Benadryl, but it has not helped. Denies any shortness of breath, abdominal pain, nausea/vomiting, bowel or bladder symptoms. Associated symptoms: Deny chills, fever(s), nausea or vomiting Review of Systems Const: Denies: fever(s), chills or fatigue Eyes: Reports: other (itchy eyes); Denies: change in vision or eye discomfort ENMT: Denies: throat pain, odynophagia, nasal discharge or nasal congestion Card: Denies: chest pain, palpitations, edema, swelling of feet/ankles, dyspnea on exertion or orthopnea Resp: Denies: dyspnea, productive cough or non-productive cough GI: Denies: abdominal pain, nausea, vomiting, diarrhea, constipation or hematochezia : Denies: flank pain, dysuria or hematuria Musc: Denies: neck pain, back pain or extremity swelling Skin/Breast: Reports: rash (pruritic rash on back and chest. ) and pruritus; Denies: new lesions Neuro: Denies: headache(s), numbness in extremities or weakness in extremities PFSH ED PFSH: Medical History Anxiety Asthma Family History Other CAD (coronary artery disease) Cancer Social History Smoking and tobacco status: current every day smoker cigarettes Packs smoked per day: 0.25 Alcohol intake: current Alcohol intake frequency: holidays/special occasions only Female Reproductive History: Date of last menstrual period: 01/17/20 Physical Exam Const: COMMON NORMALS: no acute distress, patient oriented x3, healthy appearing and alert GENERAL APPEARANCE: cooperative and comfortable HENMT: COMMON NORMALS: normocephalic HEAD & SCALP: normocephalic MOUTH: Normal oral and palatal mucosa present THROAT: posterior oropharynx normal and uvula midline Eye: COMMON NORMALS: conjunctivae normal GENERAL EYE: appearance normal, both eyes and all related structures PERIORBITAL: periorbital findings normal CONJUNCTIVA: Yes conjunctivae normal OTHER: Patient says her eyes are currently itchy. Visual inspection is normal. No periorbital erythema swelling or rash seen. No conjunctivitis present. Neck/C-Spine: COMMON NORMALS: supple GENERAL: Yes normal visual inspection Resp: COMMON NORMALS: normal respiratory effort, No retractions, No use of accessory muscles and clear to auscultation bilaterally AUSCULTATION: clear to auscultation bilaterally Cardio: COMMON NORMALS: regular rate, regular rhythm, S1 normal heart sound present, S2 normal heart sound present, No gallops present (Cardio), No clicks present (Cardio), No murmurs present (Cardio) and Peripheral pulses 2+ throug hout RATE: regular rate RHYTHM: regular rhythm HEART SOUNDS: S1 normal heart sound present and S2 normal heart sound present PERIPHERAL PULSES: Peripheral pulses 2+ throughout GI: COMMON NORMALS: Normal to inspection, nondistended, normoactive bowel sounds present, Soft to palpation, non-tender and no masses PALPATION: Yes Soft to palpation : COMMON NORMALS: Yes no CVA tenderness BLADDER/KIDNEY EXAM: Yes no CVA tenderness Back/Pelvis: COMMON NORMALS: no CVA tenderness Extremity: COMMON NORMALS: normal to inspection Neuro: COMMON NORMALS: patient oriented x3 and moves all extremities SENSORIUM/ORIENTATION: Yes alert Skin: COMMON NORMALS: no rashes or lesions noted NARRATIVE SKIN EXAM: No visible rash seen on back where patient said rash is present. No erythema or hives seen. Normal appearance of skin. GENERAL SKIN EXAM: no rashes or lesions noted and dry skin Course Vital Signs: Vital signs: Vital Signs Temperature 98.2 F 08/03/20 15:55 Pulse Rate 79 08/03/20 15:55 Respiratory Rate 18 08/03/20 15:55 Blood Pressure 119/61 08/03/20 15:55 Pulse Oximetry 100 08/03/20 15:55 MDM - Skin/Abscess/Foreign Bdy MDM Narrative: Medical decision making narrative: Patient is a 30-year-old female comes to the ED with a pruritic rash. Physical exam shows no signs of of any visible rash. Patient denies any change in soaps, detergents or lotions. Denies any breathing problems. Patient was given a shot of Solu-Medrol while here in the ED. She was sent home with a prescription for Medrol Dosepak and triamcinolone cream. Patient was also told to take Benadryl at night to help with itching as well. Follow-up with PCP in 7 to 10 days. Return to ED precautions given. Patient understood agree with plan. Discharge Plan Discharge Patient Disposition: Home Clinical Impression: Pruritic rash Condition: Stable Prescriptions: New Medrol ([place]) 4 mg tablets,dose pack See Rx Instructions .ROUTE .COMPLEX Qty: 21 RF: 0 triamcinolone acetonide 0.1 % cream 1 applic TOPICAL BID Qty: 15 RF: 0 No Action Aimovig Autoinjector 140 mg/mL auto-injector 140 mg SUBCUT Q30D Qty: 1 RF: 3 tizanidine 4 mg tablet 4 mg PO TID PRN (Reason: Muscle Pain) RF: 0 levothyroxine 50 mcg Tablet 50 mcg PO DAILY RF: 0 ergocalciferol (vitamin D2) 1,250 mcg (50,000 unit) capsule 1,250 mcg PO Q7D RF: 0 albuterol sulfate [ProAir HFA] 90 mcg/actuation HFA aerosol inhaler 2 puff INHALATION Q6H PRN (Reason: Shortness Of Breath) RF: 0 Vitamin Plus Low Iron 27 mg iron- 1 mg tablet 1 tab PO DAILY RF: 0 ketorolac 10 mg tablet 10 mg PO Q6H PRN (Reason: pain) Qty: 10 RF: 0 Discharge Orders: Discharge Order (Routine); Ordered 08/03/20 Ordered By: Trevor Williamson Referrals: Kendal Varghese APN [Primary Care Provider] - Discharge Diet: Regular Discharge Activity: Resume usual activity Patient Instructions: Acute Rash (ED) Activity Restrictions/Additional Instructions: Follow-up with medical provider as directed in 5 to 7 days. Take medications as prescribed. Continue taking Benadryl at night to help with itching. Return to the ER or your medical provider if condition worsens. Please read and understand discharge instructions. If any questions, please ask. Discharge Date/Time: 08/03/20 16:22 Coding Level of Care Code ED Traffic Control Flagger for Gmg Fwd Exam Comprehensive
== END 2020-08-03 16:22 | disposition home or self-care (01) ==
PROVIDERS: Emergency Provider Physician Assistant; PCP Nurse Practitioner Family
DX: L29.9 Pruritus, unspecified (principal); F17.210 Nicotine dependence, cigarettes, uncomplicated
CPT/HCPCS: 12345; 96372; 99281; 99283; J2930

== ENCOUNTER 2020-08-13 12:37 | Emergency (ER) | payer MEDICAID, SELFPAY ==
[2020-08-13 12:48] VITALS: BP 120/68; PULSE 68; RESP 18; TEMP 36.6; O2SAT 99; BMI 30.4
--- NOTE | 2020-08-13 13:01 | W.ED.CHESTPA ---
HPI - Chest Pain General: Chief Complaint: Chest Pain Stated Complaint: chest pressure Time Seen by Provider: 08/13/20 12:41 History of Present Illness: HPI narrative: Patient is a 30-year-old comes to the ED with chest heaviness. Patient has a past medical history of SVT, hypothyroidism and anxiety. Patient says started last night, she started developing SVT attack and took a dose of metoprolol. She says the SVT went away chest pressure remained. This morning she is having episodes of chest pressure that comes and goes. Currently here in the ED she does not have any chest pressure. Associated symptoms: Deny abdominal pain, dyspnea, fever(s), nausea, palpitations or vomiting Review of Systems Const: Denies: fever(s), chills or fatigue Eyes: Denies: change in vision or eye discomfort ENMT: Denies: throat pain, odynophagia, nasal discharge or nasal congestion Card: Reports: chest pain (chest heaviness); Denies: palpitations, edema, swelling of feet/ankles, dyspnea on exertion or orthopnea Resp: Denies: dyspnea, productive cough or non-productive cough GI: Denies: abdominal pain, nausea, vomiting, diarrhea, constipation or hematochezia : Denies: flank pain, dysuria or hematuria Musc: Denies: neck pain, back pain or extremity swelling Skin/Breast: Denies: rash or new lesions Neuro: Denies: headache(s), numbness in extremities or weakness in extremities [facility] ED PFSH: Medical History Anxiety Asthma Family History Other CAD (coronary artery disease) Cancer Social History Smoking and tobacco status: current every day smoker cigarettes Packs smoked per day: 0.25 Alcohol intake: current Alcohol intake frequency: holidays/special occasions only Female Reproductive History: Date of last menstrual period: 07/25/20 Physical Exam Const: COMMON NORMALS: no acute distress, patient oriented x3, healthy appearing and alert GENERAL APPEARANCE: cooperative and comfortable HENMT: COMMON NORMALS: normocephalic HEAD & SCALP: normocephalic MOUTH: Normal oral and palatal mucosa present THROAT: posterior oropharynx normal and uvula midline Eye: COMMON NORMALS: Equal, round and reactive pupils present PUPIL: Yes Equal, round and reactive pupils present Neck/C-Spine: COMMON NORMALS: supple GENERAL: Yes normal visual inspection Resp: COMMON NORMALS: normal respiratory effort, No retractions, No use of accessory muscles and clear to auscultation bilaterally EFFORT & INSPECTION: Yes able to speak in complete sentences, No tachypneic and No respiratory distress AUSCULTATION: clear to auscultation bilaterally Cardio: COMMON NORMALS: regular rate, regular rhythm, S1 normal heart sound present, S2 normal heart sound present, No gallops present (Cardio), No clicks present (Cardio), No murmurs present (Cardio) and Peripheral pulses 2+ throughout RATE: regular rate RHYTHM: regular rhythm HEART SOUNDS: S1 normal heart sound present and S2 normal heart sound present PERIPHERAL PULSES: Peripheral pulses 2+ throughout GI: COMMON NORMALS: Normal to inspection, nondistended, normoactive bowel sounds present, Soft to palpation, non-tender and no masses PALPATION: Yes Soft to palpation : COMMON NORMALS: Yes no CVA tenderness BLADDER/KIDNEY EXAM: Yes no CVA tenderness Back/Pelvis: COMMON NORMALS: no CVA tenderness Extremity: COMMON NORMALS: normal to inspection Neuro: COMMON NORMALS: patient oriented x3 and moves all extremities SENSORIUM/ORIENTATION: Yes alert Skin: GENERAL SKIN EXAM: dry skin Course Vital Signs: Vital signs: Vital Signs Temperature 98 F 08/13/20 12:48 Pulse Rate 64 08/13/20 14:19 Respiratory Rate 20 H 08/13/20 14:19 Blood Pressure 107/52 08/13/20 14:19 Pulse Oximetry 98 08/13/20 14:19 MDM - Chest Pain MDM Narrative: Medical decision making narrative: Patient is that he 30-year-old female comes to the ED with complaint chest pain. Describes the pain as chest heaviness since that. In the ED it has completely gone away. Exam was completely normal patient tolerated. No acute distress. Vitals stable. CBC and CMP were unremarkable. EKG showed normal sinus rhythm with no ST segment elevation or depression seen. Troponin negative. Patient was discharged and told to follow-up with PCP in 7 to 10 days. Return ED precautions given. Patient understood and agreed with plan. Lab Data: Attestation: I reviewed the patient's lab results. Labs: Lab Results 08/13/20 08/13/20 08/13/20 Range/Units 13:17 13:17 13:17 WBC 7.3 (4.0-10.0) 10^3/ uL RBC 4.39 (4.1-5.3) 10^6/u L Hgb 13.6 (11.5-15.3) g/dL Hct 41.3 (37.0-47.0) % MCV 94.1 (81-99) fL MCH 31.0 (28.0-34.0) pg MCHC 32.9 (30.0-36.0) g/dL RDW 12.0 L (12.1-15.1) % Plt Count 255 (130-400) 10^3/c mm MPV 10.3 (7.4-10.4) fL Neut % (Auto) 59.2 % Lymph % (Auto) 28.8 % Villalba % (Auto) 10.1 % Eos % (Auto) 1.0 % Baso % (Auto) 0.6 % Neut # (Auto) 4.30 (1.8-7.7) 10^3/u L Lymph # (Auto) 2.1 (0.8-4.8) 10^3/u L Villalba # (Auto) 0.7 (0.2-0.9) 10^3/u L Eos # (Auto) 0.1 (0.0-0.8) 10^3/u L Baso # (Auto) 0.0 (0.0-0.1) 10^3/u L Nucleated RBC % (a uto) 0 % Nucleated RBCs # 0.0 /100WBC Sodium 136 (136-145) mmol/L Potassium 4.2 (3.5-5.1) mmol/L Chloride 102 (98-107) mmol/L Carbon Dioxide 25 (22-29) mmol/L Anion Gap 13.2 (5-19) BUN 17 (6-20) mg/dL Creatinine 0.5 (0.5-0.9) mg/dL GFR Calculation 143.9 H (90-130) mL/min Glucose 94 (65-115) mg/dL Calculated Osmolal ity 283 L (285-295) mOsm/k g Calcium 9.3 (8.5-10.5) mg/dL Total Bilirubin 0.2 (0.15-1.2) mg/dL AST 15 (0-32) U/L ALT 17 (0-33) U/L Alkaline Phosphata se 86 (35-105) IU/L Troponin T Gen 5 n g/L 6 (0-10) ng/L Total Protein 6.9 (6.6-8.7) g/dL Albumin 4.3 (3.5-5.2) g/dL Globulin 2.6 (1.3-4.6) g/dL Imaging Data^: CXR: Attestation: I personally reviewed and interpreted this imaging study as follows: Radiologist's impression: [address] [address] XRay Report Signed Patient: Noemi Patel Unit #: [id number] : 1990 Age/Sex: 30 / F ADM Date: 08/13/20 Loc: ER Room/Bed: Attending Dr: Ordering Provider/Ordering MD: Trevor Williamson Date of Service: 08/13/20 Procedure(s): XR chest 1V portable [id number] Accession Number(s): [id number] Report Number: [id number] WS: [id number] Portable AP upright chest, 08/13/2020 Clinical Data: chest heaviness Comparison: PA and lateral chest, 04/20/2020. Findings: No nodules, masses or effusions are seen. The heart is normal. The pulmonary vascularity is not increased. No pneumonia or pneumothorax is seen. Monitor leads are on the chest wall. XR/XR chest 1V portable [id number] Impression: Negative chest. Dictated By: Drea Hernandez MD Signed By: Drea Hernandez MD Signed Date/Time: 08/13/20 133 DD/ 1334 EKG Data^: EKG 1: Attestation: I personally reviewed and interpreted this EKG as follows: EKG interpretation date: 08/13/20 Interpretation: Normal sinus rhythm, 63 bpm, no ST segment elevation or depression seen. Discharge Plan Discharge Patient Disposition: Home Clinical Impression: Chest heaviness Condition: Stable Prescriptions: No Action Aimovig Autoinjector 140 mg/mL auto-injector 140 mg SUBCUT Q30D Qty: 1 RF: 3 levothyroxine 50 mcg Tablet 50 mcg PO DAILY RF: 0 ergocalciferol (vitamin D2) 1,250 mcg (50,000 unit) capsule 1,250 mcg PO Q7D RF: 0 albuterol sulfate [ProAir HFA] 90 mcg/actuation HFA aerosol inhaler 2 puff INHALATION Q6H PRN (Reason: Shortness Of Breath) RF: 0 Vitamin Plus Low Iron 27 mg iron- 1 mg tablet 1 tab PO DAILY RF: 0 ketorolac 10 mg tablet 10 mg PO Q6H PRN (Reason: pain) Qty: 10 RF: 0 methylprednisolone [Medrol (Osman)] 4 mg tablets,dose pack See Rx Instructions .ROUTE .COMPLEX Qty: 21 RF: 0 triamcinolone acetonide 0.1 % cream 1 applic TOPICAL BID Qty: 15 RF: 0 cyclobenzaprine 10 mg tablet 10 mg PO TID PRN (Reason: MUSCLE SPASMS) RF: 0 Discharge Orders: Discharge Order (Routine); Ordered 08/13/20 Ordered By: Trevor Williamson Referrals: Kendal Varghese APN [Primary Care Provider] - Discharge Diet: Regular Discharge Activity: Increase activity as tolerated Patient Instructions: Noncardiac Chest Pain (ED) Activity Restrictions/Additional Instructions: Follow-up with PCP at her next scheduled appointment. Return to the ER or your medical provider if condition worsens. Please read and understand discharge instructions. If any questions, please ask. Discharge Date/Time: 08/13/20 14:23 Coding Level of Care Code ED Mounter for Chg Fwd Exam Comprehensive
--- NOTE | 2020-08-13 13:02 | XR_ITS ---
WS: [id number] Portable AP upright chest, 08/13/2020 Clinical Data: chest heaviness Comparison: PA and lateral chest, 04/20/2020. Findings: No nodules, masses or effusions are seen. The heart is normal. The pulmonary vascularity is not increased. No pneumonia or pneumothorax is seen. Monitor leads are on the chest wall. XR/XR chest 1V portable [id number] Impression: Negative chest.
--- NOTE | 2020-08-13 13:02 | ECG_ITS ---
[facility] Test Date: 2020-08-13 Pat Name: Noemi Patel Department: Room: Gender: Female Emergency Services Director: : 1990 Requested By: Trevor Williamson Order Number: [id number] Ellington MD: Pee Ford M.D. Measurements Intervals [place] Rate: 63 P: 67 NC: 163 QRS: 46 QRSD: 89 T: 49 QT: 363 QTc: 373 Interpretive Statements SINUS RHYTHM Compared to ECG 04/20/2020 06:04:57 No significant changes Electronically Signed On 08-13-2020 20:19:04 SENIOR CATEGORY MANAGER by Pee Ford M.D. [id number]
[2020-08-13 13:24] LABS: Basophils % 0.6 %; Eosinophils # 0.1 10^3/uL (0.0-0.8); Hematocrit 41.3 % (37.0-47.0); Hemoglobin 13.6 g/dL (11.5-15.3); Lymphocytes # 2.1 10^3/uL (0.8-4.8); Lymphocytes % 28.8 %; Mean Corpuscular HGB Conc 32.9 g/dL (30.0-36.0); Mean Corpuscular Volume 94.1 fL (81-99); Mean Platelet Volume 10.3 fL (7.4-10.4); Monocytes # 0.7 10^3/uL (0.2-0.9); Monocytes % 10.1 %; Neutrophils % 59.2 %; Nucleated Red Blood Cells % 0 %; Platelet Count 255 10^3/cmm (130-400); Red Blood Count 4.39 10^6/uL (4.1-5.3); White Blood Count 7.3 10^3/uL (4.0-10.0)
[2020-08-13 13:45] LABS: Alanine Aminotransferase 17 U/L (0-33); Albumin Level 4.3 g/dL (3.5-5.2); Alkaline Phosphatase 86 IU/L (35-105); Anion Gap 13.2 (5-19); Aspartate Amino Transferase 15 U/L (0-32); Blood Urea Nitrogen 17 mg/dL (6-20); Calcium 9.3 mg/dL (8.5-10.5); Carbon Dioxide 25 mmol/L (22-29); Chloride 102 mmol/L (98-107); Globulin 2.6 g/dL (1.3-4.6); Glomerular Filtration Rate 143.9 mL/min (90-130); Glucose 94 mg/dL (65-115); Osmolality Calculated 283 mOsm/kg (285-295); Potassium 4.2 mmol/L (3.5-5.1); Sodium 136 mmol/L (136-145); Total Bilirubin 0.2 mg/dL (0.15-1.2); Total Protein 6.9 g/dL (6.6-8.7)
[2020-08-13 13:46] LABS: Troponin T (5th) Once 6 ng/L (0-10)
[2020-08-13 14:19] VITALS: BP 107/52; PULSE 64; RESP 20; O2SAT 98
== END 2020-08-13 14:23 | disposition home or self-care (01) ==
PROVIDERS: Emergency Provider Physician Assistant; PCP Nurse Practitioner Family
DX: R07.89 Other chest pain (principal); F17.210 Nicotine dependence, cigarettes, uncomplicated
CPT/HCPCS: 12345; 71045; 80053; 84484; 85025; 93005; 99282; 99283

== ENCOUNTER 2020-09-16 07:25 | Emergency (ER) | payer MEDICAID, SELFPAY ==
[2020-09-16 07:31] VITALS: BP 104/77; PULSE 102; RESP 20; O2SAT 98; BMI 29.7
--- NOTE | 2020-09-16 07:40 | ECG_ITS ---
[facility] Test Date: 2020-09-16 Pat Name: Noemi Patel Department: Room: Gender: Female Senior Restaurant Manager: : 1990 Requested By: Shen Lugo Order Number: [id number] Chandana MD: CHAUNCEY MCCRARY Measurements Intervals [place] Rate: 100 P: 61 [place]: 159 QRS: 28 QRSD: 80 T: 38 QT: 305 QTc: 394 Interpretive Statements SINUS TACHYCARDIA NONSPECIFIC ST & T-WAVE ABNORMALITY ABNORMAL RHYTHM ECG Compared to ECG 08/13/2020 13:16:44 T-wave abnormality now present Sinus rhythm no longer present Electronically Signed On 09-16-2020 18:38:53 ARCHIVIST by CHAUNCEY MCCRARY [id number]
--- NOTE | 2020-09-16 07:40 | XR_ITS ---
WS: [id number] PORTABLE CHEST HISTORY: dyspnea/cough COMPARISON: 09/09/2020 Lungs are clear and well expanded. No pleural effusion or pneumothorax. Cardiac size: Normal. Mediastinum/Aorta: Normal mediastinum. No osseous abnormality seen. XR/XR chest 1V portable [id number] IMPRESSION: Unremarkable portable chest.
[2020-09-16 07:41] VITALS: TEMP 36.9
--- NOTE | 2020-09-16 07:58 | ED_ITS ---
HPI - Chest Pain General: Chief Complaint: Chest Pain Stated Complaint: SVT Time Seen by Provider: 09/16/20 07:32 History of Present Illness: HPI narrative: 30-year-old female presents emergency room with complaint of episode of SVT this morning she has a known history of SVT. She uses metoprolol on a as needed basis for episodes. She felt it coming on this morning and took some p.o. metoprolol did not improve and she called EMS. EMS gave 6 mg of adenosine and he can she converted prior to arrival. On arrival here now she is not having any symptoms she has a mild sinus tachycardia. She is not having any chest pain or shortness of breath. MD complaint: other (SVT) Pertinent past history: other (svt) Onset (ago): minute(s) Timing of current episode: episodic Prior episodes: Yes Onset: during rest Severity: moderate Relieving factors: medication-other (adenosine) Context: other (intermittent SVT) Associated symptoms: Deny abdominal pain, dyspnea, fever(s), nausea or vomiting Treatment prior to arrival: other (adenosine) Review of Systems Const: Denies: fever(s), chills, body aches, change in appetite, fatigue or malaise ENMT: Denies: throat pain, ear or mastoid pain, nasal discharge or nasal congestion Card: Denies: chest pain, edema, dyspnea on exertion or orthopnea Resp: Denies: dyspnea, productive cough or non-productive cough GI: Denies: abdominal pain, nausea, vomiting, hematemesis, coffee ground emesis, diarrhea, constipation, bloating, hematochezia or melena : Denies: flank pain, difficulty voiding, dysuria, urinary frequency or urinary urgency Skin/Breast: Denies: rash or pruritus [facility] ED PFSH: Medical History (Updated 09/16/20 @ 09:28 by Shen Sinclair DO) Anxiety Asthma Hypothyroidism SVT (supraventricular tachycardia) Family History Other CAD (coronary artery disease) Cancer Social History Smoking and tobacco status: current every day smoker cigarettes Packs smoked per day: 0.25 Alcohol intake: current Alcohol intake frequency: holidays/special occasions only Female Reproductive History: Date of last menstrual period: 07/25/20 Physical Exam Const: COMMON NORMALS: no acute distress GENERAL APPEARANCE: cooperative and comfortable ORIENTATION/CONSCIOUSNESS: Yes awake, Yes oriented to person, Yes oriented to place and Yes oriented to time HENMT: COMMON NORMALS: normocephalic, atraumatic and hearing grossly normal bilaterally HEAD & SCALP: normocephalic and atraumatic Neck/C-Spine: COMMON NORMALS: no JVD Resp: COMMON NORMALS: normal respiratory effort, No retractions, No use of accessory muscles and clear to auscultation bilaterally AUSCULTATION: clear to auscultation bilaterally Cardio: COMMON NORMALS: no JVD, regular rate, regular rhythm and No murmurs present (Cardio) RATE: regular rate RHYTHM: regular rhythm GI: COMMON NORMALS: Soft to palpation and No hepatosplenomegaly present AUSCULTATION: Yes normoactive bowel sounds PALPATION: Yes Soft to palpation, No Tenderness to palpation present (GI), No Guarding due to palpation present (GI) and Yes No hepatosplenomegaly present Extremity: COMMON NORMALS: normal to inspection, capillary refill normal, no clubbing, cyanosis or edema, no calf tenderness and no pedal edema Neuro: SENSORIUM/ORIENTATION: Yes oriented to person, Yes oriented to place and Yes oriented to time Skin: COMMON NORMALS: no rashes or lesions noted GENERAL SKIN EXAM: no rashes or lesions noted Course Vital Signs: Vital signs: Vital Signs Temperature 98.4 F 09/16/20 07:41 Pulse Rate 89 09/16/20 08:57 Respiratory Rate 20 H 09/16/20 08:04 Blood Pressure 100/79 09/16/20 08:57 Pulse Oximetry 94 09/16/20 08:57 MDM - Chest Pain MDM Narrative: Medical decision making narrative: Patient back in normal sinus rhythm. She is well known to have SVT and has a current plan to have her follow-up with cardiology return if has further problems reviewed with her. Lab Data: Labs: Lab Results 09/16/20 09/16/20 09/16/20 Range/Units 07:46 07:46 07:46 WBC 6.0 (4.0-10.0) 10^3/ uL RBC 4.47 (4.1-5.3) 10^6/u L Hgb 13.7 (11.5-15.3) g/dL Hct 41.6 (37.0-47.0) % MCV 93.1 (81-99) fL MCH 30.6 (28.0-34.0) pg MCHC 32.9 (30.0-36.0) g/dL RDW 12.1 (12.1-15.1) % Plt Count 243 (130-400) 10^3/c mm MPV 10.4 (7.4-10.4) fL Neut % (Auto) 58.3 % Lymph % (Auto) 30.3 % [place] % (Auto) 9.6 % Eos % (Auto) 1.2 % Baso % (Auto) 0.3 % Neut # (Auto) 3.51 (1.8-7.7) 10^3/u L Lymph # (Auto) 1.8 (0.8-4.8) 10^3/u L [place] # (Auto) 0.6 (0.2-0.9) 10^3/u L Eos # (Auto) 0.1 (0.0-0.8) 10^3/u L Baso # (Auto) 0.0 (0.0-0.1) 10^3/u L Nucleated RBC % (a uto) 0 % Nucleated RBCs # 0.0 /100WBC Sodium 142 (136-145) mmol/L Potassium 3.6 (3.5-5.1) mmol/L Chloride 108 H (98-107) mmol/L Carbon Dioxide 23 (22-29) mmol/L Anion Gap 14.6 (5-19) BUN 17 (6-20) mg/dL Creatinine 0.6 (0.5-0.9) mg/dL GFR Calculation 116.6 (90-130) mL/min Glucose 63 L (65-115) mg/dL Calculated Osmolal ity 294 (285-295) mOsm/k g Lactic Acid 0.2 L (0.5-2.2) mmol/L Calcium 8.6 (8.5-10.5) mg/dL Total Bilirubin 0.3 (0.15-1.2) mg/dL AST 18 (0-32) U/L ALT 27 (0-33) U/L Alkaline Phosphata se 75 (35-105) IU/L Total Protein 6.5 L (6.6-8.7) g/dL Albumin 4.1 (3.5-5.2) g/dL Globulin 2.4 (1.3-4.6) g/dL Urine Color (Yellow) Urine Appearance (CLEAR) Urine pH (5-7) Ur Specific Gravit y (1.005-1.030) Urine Protein (Negative) Urine Glucose (UA) (Normal) Urine Ketones (Negative) Urine Blood (Negative) Urine Nitrate (Negative) Urine Bilirubin (Negative) Urine Urobilinogen (Negative) mg/dL Ur Leukocyte Annabelle ase (Negative) 09/16/20 Range/Units 08:02 WBC (4.0-10.0) 10^3/ uL RBC (4.1-5.3) 10^6/u L Hgb (11.5-15.3) g/dL Hct (37.0-47.0) % MCV (81-99) fL MCH (28.0-34.0) pg MCHC (30.0-36.0) g/dL RDW (12.1-15.1) % Plt Count (130-400) 10^3/c mm MPV (7.4-10.4) fL Neut % (Auto) % Lymph % (Auto) % Black[place] % (Auto) % Eos % (Auto) % Baso % (Auto) % Neut # (Auto) (1.8-7.7) 10^3/u L Lymph # (Auto) (0.8-4.8) 10^3/u L Black[place] # (Auto) (0.2-0.9) 10^3/u L Eos # (Auto) (0.0-0.8) 10^3/u L Baso # (Auto) (0.0-0.1) 10^3/u L Nucleated RBC % (a uto) % Nucleated RBCs # /100WBC Sodium (136-145) mmol/L Potassium (3.5-5.1) mmol/L Chloride (98-107) mmol/L Carbon Dioxide (22-29) mmol/L Anion Gap (5-19) BUN (6-20) mg/dL Creatinine (0.5-0.9) mg/dL GFR Calculation (90-130) mL/min Glucose (65-115) mg/dL Calculated Osmolal ity (285-295) mOsm/k g Lactic Acid (0.5-2.2) mmol/L Calcium (8.5-10.5) mg/dL Total Bilirubin (0.15-1.2) mg/dL AST (0-32) U/L ALT (0-33) U/L Alkaline Phosphata se (35-105) IU/L Total Protein (6.6-8.7) g/dL Albumin (3.5-5.2) g/dL Globulin (1.3-4.6) g/dL Urine Color Yellow (Yellow) Urine Appearance Clear (CLEAR) Urine pH 6.5 (5-7) Ur Specific Gravit y 1.010 (1.005-1.030) Urine Protein Neg (Negative) Urine Glucose (UA) Norm (Normal) Urine Ketones Negative (Negative) Urine Blood Neg (Negative) Urine Nitrate Negative (Negative) Urine Bilirubin Neg (Negative) Urine Urobilinogen Norm (Negative) mg/dL Ur Leukocyte Annabelle ase Negative (Negative) Discharge Plan Discharge Patient Disposition: Home Clinical Impression: SVT (supraventricular tachycardia) Condition: Stable Prescriptions: No Action Aimovig Autoinjector 140 mg/mL auto-injector 140 mg SUBCUT Q30D Qty: 1 RF: 5 levothyroxine 50 mcg Tablet 50 mcg PO DAILY RF: 0 ergocalciferol (vitamin D2) 1,250 mcg (50,000 unit) capsule 1,250 mcg PO Q7D RF: 0 albuterol sulfate [ProAir HFA] 90 mcg/actuation HFA aerosol inhaler 2 puff INHALATION Q6H PRN (Reason: Shortness Of Breath) RF: 0 Vitamin Plus Low Iron 27 mg iron- 1 mg tablet 1 tab PO DAILY RF: 0 ketorolac 10 mg tablet 10 mg PO Q6H PRN (Reason: pain) Qty: 10 RF: 0 methylprednisolone [Medrol (Osman)] 4 mg tablets,dose pack See Rx Instructions .ROUTE .COMPLEX Qty: 21 RF: 0 triamcinolone acetonide 0.1 % cream 1 applic TOPICAL BID Qty: 15 RF: 0 cyclobenzaprine 10 mg tablet 10 mg PO TID PRN (Reason: MUSCLE SPASMS) RF: 0 Discharge Orders: Discharge ED (Routine); Ordered 09/16/20 Ordered By: Shen Sinclair Referrals: Kendal Varghese APN [Primary Care Provider] - Discharge Diet: Usual diet Discharge Activity: Resume usual activity Activity Restrictions/Additional Instructions: Follow-up with your pharmacy district manager within the next week. Return to the emergency room if you have another episode. Coding Level of Care Code ED Interface Control Officer for Chg Fwd Exam Comprehensive
[2020-09-16 08:04] VITALS: BP 97/57; PULSE 93; RESP 20; O2SAT 99
[2020-09-16 08:32] LABS: Add Urine Microscopic? NO
[2020-09-16 08:36] LABS: Bilirubin Urine Neg (Negative); Blood Urine Neg (Negative); Glucose Urine UA Norm (Normal); Ketones Urine Negative (Negative); Leukocyte Esterase Urine Negative (Negative); Nitrate Urine Negative (Negative); Protein Urine Neg (Negative); Urine Appearance Clear (CLEAR); Urine Color Yellow (Yellow); Urobilinogen Urine Norm (Negative); pH Urine 6.5 (5-7)
[2020-09-16] MEDS: sodium chloride 0.9% 1,000 ML 999 ML IV (08:38)
[2020-09-16 08:57] VITALS: BP 100/79; PULSE 89; O2SAT 94
[2020-09-16 09:03] LABS: Basophils % 0.3 %; Eosinophils # 0.1 10^3/uL (0.0-0.8); Eosinophils % 1.2 %; Hematocrit 41.6 % (37.0-47.0); Hemoglobin 13.7 g/dL (11.5-15.3); Lymphocytes # 1.8 10^3/uL (0.8-4.8); Lymphocytes % 30.3 %; Mean Corpuscular HGB Conc 32.9 g/dL (30.0-36.0); Mean Corpuscular Hemoglobin 30.6 pg (28.0-34.0); Mean Corpuscular Volume 93.1 fL (81-99); Mean Platelet Volume 10.4 fL (7.4-10.4); Monocytes # 0.6 10^3/uL (0.2-0.9); Monocytes % 9.6 %; Neutrophils # 3.51 10^3/uL (1.8-7.7); Neutrophils % 58.3 %; Nucleated Red Blood Cells % 0 %; Platelet Count 243 10^3/cmm (130-400); Red Blood Count 4.47 10^6/uL (4.1-5.3); Red Cell Distribution Width 12.1 % (12.1-15.1)
[2020-09-16 09:22] LABS: Alanine Aminotransferase 27 U/L (0-33); Albumin Level 4.1 g/dL (3.5-5.2); Alkaline Phosphatase 75 IU/L (35-105); Anion Gap 14.6 (5-19); Aspartate Amino Transferase 18 U/L (0-32); Blood Urea Nitrogen 17 mg/dL (6-20); Calcium 8.6 mg/dL (8.5-10.5); Carbon Dioxide 23 mmol/L (22-29); Chloride 108 mmol/L (98-107); Globulin 2.4 g/dL (1.3-4.6); Glomerular Filtration Rate 116.6 mL/min (90-130); Glucose 63 mg/dL (65-115); Osmolality Calculated 294 mOsm/kg (285-295); Potassium 3.6 mmol/L (3.5-5.1); Sodium 142 mmol/L (136-145); Total Bilirubin 0.3 mg/dL (0.15-1.2); Total Protein 6.5 g/dL (6.6-8.7)
[2020-09-16 09:23] LABS: Lactic Sepsis W/Reflex 0.2 mmol/L (0.5-2.2)
[2020-09-16 09:33] VITALS: BP 105/71; PULSE 75; RESP 20; O2SAT 99
== END 2020-09-16 09:33 | disposition home or self-care (01) ==
PROVIDERS: Emergency Provider Family Medicine; PCP Nurse Practitioner Family
DX: I47.1 Supraventricular tachycardia (principal); F17.210 Nicotine dependence, cigarettes, uncomplicated
CPT/HCPCS: 12345; 71045; 80053; 81003; 83605; 85025; 93005; 96360; 99281; 99283; J7030

== ENCOUNTER 2020-10-26 10:27 | Emergency (ER) | payer MEDICAID, SELFPAY ==
[2020-10-26 10:35] VITALS: BP 122/78; PULSE 74; RESP 20; TEMP 36.9; O2SAT 99; BMI 30.2
--- NOTE | 2020-10-26 10:49 | ED_ITS ---
HPI - Dental/Oral General: Chief complaint: Dental/Oral Stated complaint: R SIDE SHARP TOOTH PAIN Time Seen by Provider: 10/26/20 10:36 History of Present Illness: HPI Narrative: 30 yo female presents emergency room complaining of tooth pain. She is previously seen a dentist was started on amoxicillin states that she is continue to have tooth pain despite anti- inflammatories. She has no fever sweats or chills she has referred pain into her right ear now. MD Complaint: tooth pain Teeth map: 1. Onset (ago): day(s) Duration: constant Severity: severe Relieving factors: nothing Exacerbating factors: nothing Context: history of dental caries Associated symptoms: Reports no associated symptoms; Denies ear or mastoid pain or fever(s) Treatment prior to arrival: none Review of Systems Const: Denies: fever(s), chills, body aches, change in appetite, fatigue or malaise ENMT: Denies: throat pain, ear or mastoid pain, nasal discharge or nasal congestion Card: Denies: chest pain, edema, dyspnea on exertion or orthopnea Resp: Denies: dyspnea, productive cough or non-productive cough GI: Denies: abdominal pain, nausea, vomiting, hematemesis, coffee ground emesis, diarrhea, constipation, bloating, hematochezia or melena : Denies: flank pain, difficulty voiding, dysuria, urinary frequency or urinary urgency PFS ED PFSH: Medical History Anxiety Asthma Hypothyroidism SVT (supraventricular tachycardia) Family History Other CAD (coronary artery disease) Cancer Social History Smoking and tobacco status: current every day smoker cigarettes Packs smoked per day: 0.25 Alcohol intake: current Alcohol intake frequency: holidays/special occasions only Female Reproductive History: Date of last menstrual period: 07/25/20 Physical Exam Const: COMMON NORMALS: no acute distress GENERAL APPEARANCE: cooperative and comfortable ORIENTATION/CONSCIOUSNESS: Yes awake, Yes oriented to person, Yes oriented to place and Yes oriented to time HENMT: COMMON NORMALS: normocephalic, atraumatic and hearing grossly normal bilaterally HEAD & SCALP: normocephalic and atraumatic Neck/C-Spine: COMMON NORMALS: no JVD Resp: COMMON NORMALS: normal respiratory effort, No retractions, No use of accessory muscles and clear to auscultation bilaterally AUSCULTATION: clear to auscultation bilaterally Cardio: COMMON NORMALS: no JVD, regular rate, regular rhythm and No murmurs present (Cardio) RATE: regular rate RHYTHM: regular rhythm GI: COMMON NORMALS: Soft to palpation and No hepatosplenomegaly present AUSCULTATION: Yes normoactive bowel sounds PALPATION: Yes Soft to palpation, No Tenderness to palpation present (GI), No Guarding due to palpation present (GI) and Yes No hepatosplenomegaly present Extremity: COMMON NORMALS: normal to inspection, capillary refill normal, no clubbing, cyanosis or edema, no calf tenderness and no pedal edema Neuro: SENSORIUM/ORIENTATION: Yes oriented to person, Yes oriented to place and Yes oriented to time Skin: COMMON NORMALS: no rashes or lesions noted GENERAL SKIN EXAM: no rashes or lesions noted Course Vital Signs: Vital signs: Vital Signs Temperature 98.5 F 10/26/20 10:35 Pulse Rate 74 10/26/20 10:35 Respiratory Rate 20 H 10/26/20 10:35 Blood Pressure 122/78 10/26/20 10:35 Pulse Oximetry 99 10/26/20 10:35 MDM - Dental/Oral MDM Narrative: Medical decision making narrative: Patient advised to continue use dental wax continue to use the oral antibiotic given 10 hydrocodone and diclofenac follow-up with dentistry as soon as possible. Discharge Plan Discharge Patient Disposition: Home Clinical Impression: Fracture of tooth Condition: Stable Prescriptions: New hydrocodone-acetaminophen 5-325 mg tablet 1 tab PO Q6H PRN (Reason: pain) Qty: 10 RF: 0 diclofenac sodium 75 mg tablet,delayed release (DR/EC) 75 mg PO Q12H PRN (Reason: pain) Qty: 20 RF: 0 No Action metoprolol tartrate 25 mg tablet 12.5 mg PO BID PRNRF: 0 levothyroxine 75 mcg tablet 75 mcg PO DAILY RF: 0 Aimovig Autoinjector 140 mg/mL auto-injector 140 mg SUBCUT Q30D Qty: 1 RF: 5 ergocalciferol (vitamin D2) 1,250 mcg (50,000 unit) capsule 1,250 mcg PO Q7D RF: 0 albuterol sulfate [ProAir HFA] 90 mcg/actuation HFA aerosol inhaler 2 puff INHALATION Q6H PRN (Reason: Shortness Of Breath) RF: 0 Vitamin Plus Low Iron 27 mg iron- 1 mg tablet 1 tab PO DAILY RF: 0 ketorolac 10 mg tablet 10 mg PO Q6H PRN (Reason: pain) Qty: 10 RF: 0 methylprednisolone [Medrol (Osman)] 4 mg tablets,dose pack See Rx Instructions .ROUTE .COMPLEX Qty: 21 RF: 0 triamcinolone acetonide 0.1 % cream 1 applic TOPICAL BID Qty: 15 RF: 0 cyclobenzaprine 10 mg tablet 10 mg PO TID PRN (Reason: MUSCLE SPASMS) RF: 0 Discharge Orders: Discharge ED (Routine); Ordered 10/26/20 Ordered By: Shen Sinclair Referrals: Varghese,Kendal, LADLE PATCHER [Primary Care Provider] - Activity Restrictions/Additional Instructions: Continue previously prescribed antibiotic. Follow-up with dentist as soon as you are able Coding Level of Care Code ED Washing Machine Operator for Julia Emery
[2020-10-26 11:21] VITALS: PULSE 78; RESP 18; O2SAT 98
== END 2020-10-26 11:22 | disposition home or self-care (01) ==
PROVIDERS: Emergency Provider Family Medicine; PCP Nurse Practitioner Family
DX: S02.5XXA Fracture of tooth (traumatic), initial encounter for closed fracture (principal); X58.XXXA Exposure to other specified factors, initial encounter; F17.210 Nicotine dependence, cigarettes, uncomplicated
CPT/HCPCS: 12345; 99281; 99282

== ENCOUNTER 2020-11-08 12:53 | Emergency (ER) | payer MEDICAID, SELFPAY ==
[2020-11-08 12:54] VITALS: BP 120/82; PULSE 76; RESP 18; TEMP 37.1; O2SAT 100; BMI 31.3
--- NOTE | 2020-11-08 13:27 | ED_ITS ---
HPI - Head Injury General: Chief complaint: Head Injury Stated complaint: head injury Time Seen by Provider: 11/08/20 13:01 Source: patient Mode of arrival: ambulatory Limitations: no limitations History of Present Illness: HPI Narrative: Patient is a 30-year-old female (identifies as a male) here for complaints of a head injury. Patient tells me yesterday she was outside at dark caring for some puppies and states she was running back to the house when she ran into a wall. Patient tells me she is not sure if she lost consciousness. She states she saw stars and was very dizzy and nauseous afterwards. She states she got inside and became tired so fell asleep. She states when she woke up this morning she was still very dizzy and nauseous and had a headache. She is also stating the left side of her body is tingling. Complaint: head injury Onset (ago): hour(s) Place: home Loss of Consciousness: unsure Location of injury: frontal Severity: mild Radiation: none Other Injuries: none Associated symptoms: Reports nausea; Deny confusion, neck pain or vomiting Review of Systems Const: Denies: fever(s) or chills Eyes: Reports: blurry vision (subsided now); Denies: photophobia or seeing flashes Card: Denies: chest pain Resp: Denies: dyspnea GI: Reports: nausea; Denies: vomiting Musc: Denies: neck pain, back pain, extremity pain or joint pain Neuro: Reports: headache(s), sensory changes, dizziness and difficulty communicating thoughts; Denies: weakness in extremities, lack of coordination, difficulty walking, frequent falls, confusion or Slurred speech present [facility] ED PFSH: Medical History Anxiety Asthma Hypothyroidism SVT (supraventricular tachycardia) Family History Other CAD (coronary artery disease) Cancer Social History Smoking and tobacco status: current every day smoker cigarettes Packs smoked per day: 0.25 Alcohol intake: current Alcohol intake frequency: holidays/special occasions only Female Reproductive History: Date of last menstrual period: 11/01/20 Physical Exam Const: COMMON NORMALS: no acute distress, average body habitus, patient oriented x3, no limitations, healthy appearing, alert and well nourished ORIENTATION/CONSCIOUSNESS: Yes oriented to person, Yes oriented to place and Yes oriented to time HENMT: COMMON NORMALS: normocephalic and atraumatic HEAD & SCALP: normocephalic and atraumatic Eye: COMMON NORMALS: Equal, round and reactive pupils present and EOMs intact bilaterally GENERAL EYE: appearance normal, both eyes and all related structures PUPIL: Yes Equal, round and reactive pupils present Neck/C-Spine: COMMON NORMALS: full ROM CERVICAL SPINE: No Cervical spine tenderness Neuro: BARRY COMA SCALE: document GCS findings Barry coma scale eye opening: Spontaneous Barry coma scale verbal response: Orientated Barry coma scale motor response: Obey commands Barry coma scale total score: 15 COMMON NORMALS: patient oriented x3, CN's II-XII intact bilaterally, moves all extremities, no focal motor deficits, no sensory deficits noted and gait normal SENSORIUM/ORIENTATION: Yes alert, Yes oriented to person, Yes oriented to place and Yes oriented to time COORDINATION/BALANCE: [id number] test normal and drmc-tp-egip test normal SPEECH: speech normal GAIT: Yes Normal gait present MOTOR EXAM: 5/5 motor strength present throughout COORDINATION: [id number]-[id number] test normal and glnu-iq-avnq test normal Skin: COMMON NORMALS: no rashes or lesions noted GENERAL SKIN EXAM: no rashes or lesions noted Course Vital Signs: Vital signs: Vital Signs Temperature 98.7 F 11/08/20 12:54 Pulse Rate 76 11/08/20 12:54 Respiratory Rate 18 11/08/20 12:54 Blood Pressure 120/82 11/08/20 12:54 Pulse Oximetry 100 11/08/20 12:54 MDM - Head Injury MDM Narrative: Medical decision making narrative: Patient's head CT is normal. She has absolutely no neurological deficits on her physical examination. Patient is stable for discharge with primary care next week if symptoms persist. Imaging Data^: CT Head: Radiologist's impression: [address] [address] [address] Scan Report Signed Patient: Noemi Patel Unit #: [id number] : 1990 Acc t#:[id number] Age/Sex: 30 / F ADM Date: 11/08/20 Loc: ER Room/Bed: Attending Dr: Ordering Provider/Ordering MD: Charlene Crenshaw Date of Service: 11/08/20 Procedure(s): CT head wo con* [id number] Accession Number(s): [id number] Report Number: [id number] WS: [id number] CT HEAD TECHNIQUE: Noncontrast CT of the head obtained from the skullbase to the vertex. CLINICAL INFORMATION: trauma, SAWANT, dizziness, nausea COMPARISON: CT March 04, 2020 DLP: 864.[address] scans at [facility] use at least one of these dose optimization techniques: automated exposure control; mA and/or kV adjustment per patient size (includes targeted exams where dose is matched to clinical indication); or iterative reconstruction. FINDINGS: No evidence of intracranial hemorrhage or mass effect. Ventricular system and basal cisterns are patent. No extra-axial fluid collections. No evidence of mass or mass effect. Normal lemus-white differentiation. Paranasal sinuses and mastoid air cells are well aerated. .Normal visualized soft tissues. CT/CT head wo con* [id number] IMPRESSION: 1. No evidence of intracranial hemorrhage or mass effect. 2. Normal lemus-white differentiation.0 3. No acute intracranial findings. Dictated By: Donato Escobar MD Signed By: Donato Escobar MD Signed Date/Time: 11/08/20 1413 DD/ 1408 Discharge Plan Discharge Patient Disposition: Home Clinical Impression: Mild concussion Qualifiers: Encounter type: initial encounter Loss of consciousness presence/duration: without LOC Qualified Code(s): S06.0X0A - Concussion without loss of consciousness, initial encounter Condition: Stable Prescriptions: No Action metoprolol tartrate 25 mg tablet 12.5 mg PO BID PRNRF: 0 levothyroxine 75 mcg tablet 75 mcg PO DAILY RF: 0 Aimovig Autoinjector 140 mg/mL auto-injector 140 mg SUBCUT Q30D Qty: 1 RF: 5 ergocalciferol (vitamin D2) 1,250 mcg (50,000 unit) capsule 1,250 mcg PO Q7D RF: 0 albuterol sulfate [ProAir HFA] 90 mcg/actuation HFA aerosol inhaler 2 puff INHALATION Q6H PRN (Reason: Shortness Of Breath) RF: 0 Vitamin Plus Low Iron 27 mg iron- 1 mg tablet 1 tab PO DAILY RF: 0 ketorolac 10 mg tablet 10 mg PO Q6H PRN (Reason: pain) Qty: 10 RF: 0 hydrocodone-acetaminophen 5-325 mg tablet 1 tab PO Q6H PRN (Reason: pain) Qty: 10 RF: 0 diclofenac sodium 75 mg tablet,delayed release (DR/EC) 75 mg PO Q12H PRN (Reason: pain) Qty: 20 RF: 0 methylprednisolone [Medrol (Osman)] 4 mg tablets,dose pack See Rx Instructions .ROUTE .COMPLEX Qty: 21 RF: 0 triamcinolone acetonide 0.1 % cream 1 applic TOPICAL BID Qty: 15 RF: 0 cyclobenzaprine 10 mg tablet 10 mg PO TID PRN (Reason: MUSCLE SPASMS) RF: 0 Discharge Orders: Discharge ED (Routine); Ordered 11/08/20 Ordered By: Charlene Crenshaw Referrals: Kendal Varghese APN [Primary Care Provider] - Patient Instructions: Concussion/Head Injury - Adult, Concussion (ED), Minor Head Injury (ED) Coding Level of Care Code ED Lav Crewman for Julia Emery
--- NOTE | 2020-11-08 13:27 | CT_ITS ---
WS: [id number] CT HEAD TECHNIQUE: Noncontrast CT of the head obtained from the skullbase to the vertex. CLINICAL INFORMATION: trauma, SAWANT, dizziness, nausea COMPARISON: CT March 04, 2020 DLP: 864.[address] scans at [facility] use at least one of these dose optimization techniques: automat ed exposure control; mA and/or kV adjustment per patient size (includes targeted exams where dose is matched to clinical indication); or iterative reconstruction. FINDINGS: No evidence of intracranial hemorrhage or mass effect. Ventricular system and basal cisterns are mcmillan nt. No extra-axial fluid collections. No evidence of mass or mass effect. Normal lemus-white differen tiation. Paranasal sinuses and mastoid air cells are well aerated. .Normal visualized soft tissues. CT/CT head wo con* [id number] IMPRESSION: 1. No evidence of intracranial hemorrhage or mass effect. 2. Normal lemus-white differentiation.0 3. No acute intracranial findings.
== END 2020-11-08 15:00 | disposition home or self-care (01) ==
PROVIDERS: Emergency Provider Physician Assistant; PCP Nurse Practitioner Family
DX: S06.0X0A Concussion without loss of consciousness, initial encounter (principal); F17.210 Nicotine dependence, cigarettes, uncomplicated; W22.01XA Walked into wall, initial encounter
CPT/HCPCS: 12345; 70450; 99281; 99282

== ENCOUNTER 2020-12-05 22:41 | Emergency (ER) | payer MEDICAID, SELFPAY ==
[2020-12-05 22:42] VITALS: BP 127/85; PULSE 100; RESP 18; TEMP 36.9; O2SAT 100; BMI 31.3
--- NOTE | 2020-12-05 22:42 | ECG_ITS ---
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 Measurements Intervals [place] Rate: 90 P: 50 FL: 195 QRS: 33 QRSD: 93 T: 35 QT: 318 QTc: 390 Interpretive Statements SINUS RHYTHM POSSIBLE LEFT ATRIAL ENLARGEMENT [-0.1mV P WAVE IN V1/V2] NONSPECIFIC T-WAVE ABNORMALITY Compared to ECG 09/16/2020 07:30:50 Sinus tachycardia no longer present T-wave abnormality still present Electronically Signed On 12-07-2020 11:22:10 [employer]ES by Kandy Alvarenga M.D. [id number]
--- NOTE | 2020-12-05 22:46 | ED_ITS ---
HPI - Arrhythmia/Palpitations General: Chief Complaint: Arrhythmia/Palpitations Stated Complaint: EPISODE OF SVT Time Seen by Provider: 12/05/20 22:42 Source: patient and EMS Mode of arrival: EMS Limitations: no limitations History of Present Illness: HPI narrative: 30-year-old female has a history of SVT states that over the last 4 to 5 hours she has been having palpitations and felt like she is going in and out of SVT. Patient came in by EMS and heart rate has been normal with them. She denies any pain. She is scheduled to see cardiology tomorrow morning and is scheduled for an ablation in the future. She denies any vomiting or diarrhea. Associated symptoms: Deny nausea or vomiting Review of Systems Const: Denies: fever(s), chills, body aches or change in appetite Eyes: Denies: blurry vision or eye discomfort ENMT: Denies: throat pain or dental pain Card: Reports: palpitations Resp: Denies: dyspnea GI: Denies: abdominal pain, nausea, vomiting or diarrhea : Denies: dysuria Musc: Denies: neck pain or back pain Skin/Breast: Denies: rash Neuro: Denies: headache(s) Psych: Denies: depression Felix/Lymph: Denies: easy bruising All/Imm: Denies: urticaria PFSH ED PFSH: Medical History Anxiety Asthma Hypothyroidism SVT (supraventricular tachycardia) Family History Other CAD (coronary artery disease) Cancer Social History Smoking and tobacco status: current every day smoker cigarettes Packs smoked per day: 0.25 Alcohol intake: current Alcohol intake frequency: holidays/special occasions only Female Reproductive History: Date of last menstrual period: 11/01/20 Physical Exam Const: COMMON NORMALS: no acute distress, patient oriented x3 and healthy appearing HENMT: COMMON NORMALS: normocephalic and atraumatic HEAD & SCALP: normocephalic and atraumatic Eye: COMMON NORMALS: Equal, round and reactive pupils present and EOMs intact bilaterally PUPIL: Yes Equal, round and reactive pupils present Neck/C-Spine: COMMON NORMALS: full ROM and supple Chest: COMMONS NORMALS: normal inspection of the chest and normal palpation of entire chest wall Resp: COMMON NORMALS: normal respiratory effort, No retractions, No use of accessory muscles and clear to auscultation bilaterally AUSCULTATION: clear to auscultation bilaterally Cardio: COMMON NORMALS: regular rate, regular rhythm and No murmurs present (Cardio) RATE: regular rate RHYTHM: regular rhythm GI: COMMON NORMALS: Normal to inspection, nondistended, normoactive bowel sounds present, Soft to palpation, non-tender and no masses PALPATION: Yes Soft to palpation Extremity: COMMON NORMALS: normal to inspection and full ROM Neuro: COMMON NORMALS: patient oriented x3, moves all extremities and no focal motor deficits Psych: COMMON NORMALS: mental status grossly normal, Normal thought process present and cooperative THOUGHT PROCESS: Normal thought process present Skin: COMMON NORMALS: no rashes or lesions noted and no wounds GENERAL SKIN EXAM: no rashes or lesions noted Course Vital Signs: Vital signs: Vital Signs Temperature 98.4 F 12/05/20 22:42 Pulse Rate 99 12/05/20 23:05 Respiratory Rate 18 12/05/20 23:05 Blood Pressure 130/78 12/05/20 23:05 Pulse Oximetry 98 12/05/20 23:05 MDM - Arrhythmia/Palpitations MDM Narrative: Medical decision making narrative: Patient presents here with a history of SVT and palpitations. Here her heart rate has been 100 or less. She has not been in SVT here. She is well-appearing here and is stable for discharge and is to follow-up with her certified personal trainer as scheduled tomorrow. She is return if worsening. EKG Data^: EKG 1: Attestation: I personally reviewed and interpreted this EKG as follows: EKG interpretation date: 12/05/20 EKG interpretation time: 22:45 Interpretation: nsr hr [address] or t wave abnormalities qrs 93 qtc 366 Discharge Plan Discharge Patient Disposition: Home Clinical Impression: Palpitations Condition: Stable Prescriptions: No Action metoprolol tartrate 25 mg tablet 12.5 mg PO BID PRNRF: 0 levothyroxine 75 mcg tablet 75 mcg PO DAILY RF: 0 Aimovig Autoinjector 140 mg/mL auto-injector 140 mg SUBCUT Q30D Qty: 1 RF: 5 ergocalciferol (vitamin D2) 1,250 mcg (50,000 unit) capsule 1,250 mcg PO Q7D RF: 0 albuterol sulfate [ProAir HFA] 90 mcg/actuation HFA aerosol inhaler 2 puff INHALATION Q6H PRN (Reason: Shortness Of Breath) RF: 0 Vitamin Plus Low Iron 27 mg iron- 1 mg tablet 1 tab PO DAILY RF: 0 ketorolac 10 mg tablet 10 mg PO Q6H PRN (Reason: pain) Qty: 10 RF: 0 hydrocodone-acetaminophen 5-325 mg tablet 1 tab PO Q6H PRN (Reason: pain) Qty: 10 RF: 0 diclofenac sodium 75 mg tablet,delayed release (DR/EC) 75 mg PO Q12H PRN (Reason: pain) Qty: 20 RF: 0 methylprednisolone [Medrol (Osman)] 4 mg tablets,dose pack See Rx Instructions .ROUTE .COMPLEX Qty: 21 RF: 0 triamcinolone acetonide 0.1 % cream 1 applic TOPICAL BID Qty: 15 RF: 0 cyclobenzaprine 10 mg tablet 10 mg PO TID PRN (Reason: MUSCLE SPASMS) RF: 0 Discharge Orders: Discharge ED (Routine); Ordered 12/05/20 Ordered By: Jonas Brwonlee Referrals: Abimael,RAIN EdmondsN [Primary Care Provider] - 1-3 days Discharge Diet: Advance as tolerated Discharge Activity: Resume usual activity Patient Instructions: Palpitations (ED) Coding Level of Care Code ED Financial Services Rep for Chg Fwd Exam Comprehensive
[2020-12-05] MEDS: LORazepam 2 mg/mL INJ 1 mL 1 MG IVP (23:00)
[2020-12-05 23:05] VITALS: BP 130/78; PULSE 99; RESP 18; O2SAT 98
[2020-12-06] VITALS: BP 117/85; PULSE 93; RESP 24; O2SAT 98
[2020-12-06 01:06] VITALS: BP 117/83; PULSE 88; RESP 17; TEMP 36.9; O2SAT 100
== END 2020-12-06 01:06 | disposition home or self-care (01) ==
PROVIDERS: Emergency Provider Emergency Medicine; PCP Nurse Practitioner Family
DX: R00.2 Palpitations (principal); F17.210 Nicotine dependence, cigarettes, uncomplicated
CPT/HCPCS: 93005; 96374; 99283; J2060

== ENCOUNTER 2021-01-01 13:50 | Emergency (ER) | payer MEDICAID, SELFPAY ==
[2021-01-01 13:51] VITALS: BP 108/79; PULSE 61; RESP 17; TEMP 37.1; O2SAT 98; BMI 31.3
[2021-01-01 13:53] VITALS: O2SAT 95
--- NOTE | 2021-01-01 14:11 | ECG_ITS ---
[facility] Test Date: 2021-01-01 Pat Name: Noemi Patel Department: Room: Gender: Female Youth Specialist: : 1990 Requested By: Zaina Lugo Order Number: [id number] Chandana MD: Micah Taylor M.D. Measurements Intervals [place] Rate: 60 P: 55 DE: 171 QRS: 18 QRSD: 92 T: 17 QT: 394 QTc: 395 Interpretive Statements SINUS RHYTHM Compared to ECG 12/05/2020 22:45:18 T-wave abnormality no longer present Electronically Signed On 01-01-2021 17:44:56 CDT by Micah Taylor M.D. [id number] f
--- NOTE | 2021-01-01 14:14 | W.ED.CHESTPA ---
HPI - Chest Pain General: Chief Complaint: Chest Pain Stated Complaint: CHEST PAIN Time Seen by Provider: 01/01/21 13:59 History of Present Illness: HPI narrative: This patient is a 30 year old female presenting with chest pain and near syncope. Her chest pain started yesterday and she took one of the PRN metoprolol that is prescribed for SVT. She was not having an SVT episode. The chest pain has continued and is constant - and this morning she has been dizzy and felt like she was going to pass out. She almost passed out a couple of times. She is not having any chest pain now - she says that she coughed - as she often does at the end of an SVT episode - and the pressure in her chest went away. She has checked her heart rate several times today and it has been normal. MD complaint: chest pain and other (dizziness) Pertinent past history: other (SVT) Onset (ago): day(s) (1) Timing of current episode: constant and now resolved Prior episodes: Yes Onset: during rest Pain location: substernal Pain radiation: none Severity: moderate Quality: other (pressure) Relieving factors: other (coughing) Exacerbating factors: nothing Associated symptoms: Reports nausea and vomiting (threw up yesterday); Deny dyspnea or fever(s) Review of Systems General: Reports: 10 or more systems reviewed and unremarkable except in HPI and below Const: Denies: fever(s), chills, fatigue or malaise Eyes: Denies: change in vision ENMT: Denies: odynophagia Card: Denies: chest pain or swelling of feet/ankles Resp: Denies: dyspnea, productive cough or non-productive cough GI: Reports: nausea and vomiting (threw up yesterday) : Denies: flank pain or difficulty voiding Musc: Denies: neck pain or back pain Skin/Breast: Denies: rash Neuro: Denies: headache(s), numbness in extremities or weakness in extremities Felix/Lymph: Denies: easy bruising or easy bleeding PFSH ED PFSH: Medical History Anxiety Asthma Hypothyroidism SVT (supraventricular tachycardia) Family History Other CAD (coronary artery disease) Cancer Social History Smoking and tobacco status: current every day smoker cigarettes Packs smoked per day: 0.25 Alcohol intake: current Alcohol intake frequency: holidays/special occasions only Female Reproductive History: Date of last menstrual period: 11/01/20 Physical Exam Const: COMMON NORMALS: no acute distress, patient oriented x3, no limitations and alert GENERAL APPEARANCE: cooperative and comfortable HENMT: HEAD & SCALP: normal to inspection FACE & SINUS: normal facial exam Eye: GENERAL EYE: appearance normal, both eyes and all related structures Neck/C-Spine: COMMON NORMALS: supple, no meningeal signs and no JVD Chest: COMMONS NORMALS: normal inspection of the chest Resp: COMMON NORMALS: normal respiratory effort, No use of accessory muscles and clear to auscultation bilaterally AUSCULTATION: clear to auscultation bilaterally Cardio: COMMON NORMALS: no JVD, regular rate, regular rhythm and No murmurs present (Cardio) RATE: regular rate RHYTHM: regular rhythm GI: COMMON NORMALS: Normal to inspection, nondistended, normoactive bowel sounds present, Soft to palpation and non-tender INSPECTION: Yes normal to inspection AUSCULTATION: Yes normoactive bowel sounds PALPATION: Yes Soft to palpation Back/Pelvis: COMMON NORMALS: thoracic and lumbar spine normal to inspection Extremity: COMMON NORMALS: normal to inspection Neuro: COMMON NORMALS: patient oriented x3, moves all extremities, no focal motor deficits and no sensory deficits noted SENSORIUM/ORIENTATION: Yes alert MENINGEAL SIGNS: Yes no meningeal signs Psych: COMMON NORMALS: mental status grossly normal, cooperative and normal affect Skin: COMMON NORMALS: no rashes or lesions noted and turgor normal GENERAL SKIN EXAM: no rashes or lesions noted and turgor normal Course ED course: Patient was comfortable in the ED with no symptoms. Normal heart rate and rhythm. Neg labs. No clear cause for symptoms - likely anxiety. Outpatient follow up. Vital Signs: Vital signs: Vital Signs Temperature 98.8 F 01/01/21 13:51 Pulse Rate 85 01/01/21 18:17 Respiratory Rate 17 01/01/21 18:17 Blood Pressure 115/72 01/01/21 18:17 Pulse Oximetry 98 01/01/21 18:17 MDM - Chest Pain MDM Narrative: Medical decision making narrative: SVT, NE, PE, GERD, anxiety, dehydration, anemia. Neg d-dimer, normal heart rhythm on EKG and monitor. No significant dehydration. Normal HGB. Asymptomatic in the ED. Neg troponins. Lab Data: Labs: Lab Results 01/01/21 01/01/21 01/01/21 Range/Units 14:45 14:45 14:45 WBC 5.7 (4.0-10.0) 10^3/ uL RBC 4.24 (4.1-5.3) 10^6/u L Hgb 13.1 (11.5-15.3) g/dL Hct 39.9 (37.0-47.0) % MCV 94.1 (81-99) fL MCH 30.9 (28.0-34.0) pg MCHC 32.8 (30.0-36.0) g/dL RDW 12.1 (12.1-15.1) % Plt Count 309 (130-400) 10^3/c mm MPV 9.9 (7.4-10.4) fL Neut % (Auto) 54.9 % Lymph % (Auto) 34.6 % [place] % (Auto) 8.7 % Eos % (Auto) 1.2 % Baso % (Auto) 0.4 % Neut # (Auto) 3.11 (1.8-7.7) 10^3/u L Lymph # (Auto) 2.0 (0.8-4.8) 10^3/u L [place] # (Auto) 0.5 (0.2-0.9) 10^3/u L Eos # (Auto) 0.1 (0.0-0.8) 10^3/u L Baso # (Auto) 0.0 (0.0-0.1) 10^3/u L Nucleated RBC % (a uto) 0 % Nucleated RBCs # 0.0 /100WBC D-Dimer 0.47 (0-0.59) ug/mIFE U Sodium 135 L (136-145) mmol/L Potassium 3.6 (3.5-5.1) mmol/L Chloride 102 (98-107) mmol/L Carbon Dioxide 26 (22-29) mmol/L Anion Gap 10.6 (5-19) BUN 12 (6-20) mg/dL Creatinine 0.5 (0.5-0.9) mg/dL GFR Calculation 143.9 H (90-130) mL/min Glucose 81 (65-115) mg/dL Calculated Osmolal ity 279 L (285-295) mOsm/k g Calcium 8.3 L (8.5-10.5) mg/dL Total Bilirubin 0.4 (0.15-1.2) mg/dL AST 21 (0-32) U/L ALT 17 (0-33) U/L Alkaline Phosphata se 76 (35-105) IU/L Troponin T Baselin e (0-10) ng/L Troponin T 120 Min tanana (0-10) ng/L Delta Troponin T (0-10) ABS# Total Protein 6.7 (6.6-8.7) g/dL Albumin 3.9 (3.5-5.2) g/dL Globulin 2.8 (1.3-4.6) g/dL 01/01/21 01/01/21 Range/Units 14:45 16:45 WBC (4.0-10.0) 10^3/ uL RBC (4.1-5.3) 10^6/u L Hgb (11.5-15.3) g/dL Hct (37.0-47.0) % MCV (81-99) fL MCH (28.0-34.0) pg MCHC (30.0-36.0) g/dL RDW (12.1-15.1) % Plt Count (130-400) 10^3/c mm MPV (7.4-10.4) fL Neut % (Auto) % Lymph % (Auto) % [place] % (Auto) % Eos % (Auto) % Baso % (Auto) % Neut # (Auto) (1.8-7.7) 10^3/u L Lymph # (Auto) (0.8-4.8) 10^3/u L [place] # (Auto) (0.2-0.9) 10^3/u L Eos # (Auto) (0.0-0.8) 10^3/u L Baso # (Auto) (0.0-0.1) 10^3/u L Nucleated RBC % (a uto) % Nucleated RBCs # /100WBC D-Dimer (0-0.59) ug/mIFE U Sodium (136-145) mmol/L Potassium (3.5-5.1) mmol/L Chloride (98-107) mmol/L Carbon Dioxide (22-29) mmol/L Anion Gap (5-19) BUN (6-20) mg/dL Creatinine (0.5-0.9) mg/dL GFR Calculation (90-130) mL/min Glucose (65-115) mg/dL Calculated Osmolal ity (285-295) mOsm/k g Calcium (8.5-10.5) mg/dL Total Bilirubin (0.15-1.2) mg/dL AST (0-32) U/L ALT (0-33) U/L Alkaline Phosphata se (35-105) IU/L Troponin T Baselin e 6 (0-10) ng/L Troponin T 120 Min tanana 6.00 (0-10) ng/L Delta Troponin T 0 (0-10) ABS# Total Protein (6.6-8.7) g/dL Albumin (3.5-5.2) g/dL Globulin (1.3-4.6) g/dL Discharge Plan Discharge Patient Disposition: Home Clinical Impression: Atypical chest pain, Anxiety Condition: Stable Prescriptions: No Action levothyroxine 75 mcg tablet 75 mcg PO QAM RF: 0 Aimovig Autoinjector 140 mg/mL auto-injector 140 mg SUBCUT Q30D Qty: 1 RF: 5 ergocalciferol (vitamin D2) 1,250 mcg (50,000 unit) capsule 1,250 mcg PO Q7D RF: 0 albuterol sulfate [ProAir HFA] 90 mcg/actuation HFA aerosol inhaler 2 puff INHALATION QID PRN (Reason: Shortness Of Breath) RF: 0 Vitamin Plus Low Iron 27 mg iron- 1 mg tablet 1 tab PO DAILY RF: 0 cyclobenzaprine 10 mg tablet 10 mg PO TID PRN (Reason: MUSCLE SPASMS) RF: 0 ibuprofen 800 mg Tablet 800 mg PO TID PRN (Reason: Pain) RF: 0 Aspir-81 81 mg Tablet,Delayed Release (Dr/Ec) 81 mg PO ONCE RF: 0 metoprolol succinate 25 mg Tablet Extended Release 24 Hr 12.5 mg PO DAILY PRN (Reason: svt) RF: 0 ondansetron 4 mg tablet,disintegrating 4 mg PO Q4H PRN (Reason: Nausea) RF: 0 Discharge Orders: Discharge ED (Routine); Ordered 01/01/21 Ordered By: Zaina Nicole Referrals: Kendal Varghese APN [Primary Care Provider] - Discharge Diet: Usual diet Discharge Activity: Resume usual activity Patient Instructions: Noncardiac Chest Pain (ED), Opioid Safety Activity Restrictions/Additional Instructions: Follow up with your PCP or college or university registrar for further evaluation if symptoms continue. Return to the ED if new or worse symptoms occur. Make sure to drink plenty of fluids and rest. Coding Level of Care Code ED Onsite Case Manager for Julia Emery Exam Comprehensive
[2021-01-01] MEDS: sodium chloride 0.9% 500 ML 999 ML IV (14:46)
[2021-01-01 14:48] VITALS: O2SAT 100
[2021-01-01 14:56] LABS: Basophils % 0.4 %; Eosinophils # 0.1 10^3/uL (0.0-0.8); Eosinophils % 1.2 %; Hematocrit 39.9 % (37.0-47.0); Hemoglobin 13.1 g/dL (11.5-15.3); Lymphocytes % 34.6 %; Mean Corpuscular HGB Conc 32.8 g/dL (30.0-36.0); Mean Corpuscular Hemoglobin 30.9 pg (28.0-34.0); Mean Corpuscular Volume 94.1 fL (81-99); Mean Platelet Volume 9.9 fL (7.4-10.4); Monocytes # 0.5 10^3/uL (0.2-0.9); Monocytes % 8.7 %; Neutrophils # 3.11 10^3/uL (1.8-7.7); Neutrophils % 54.9 %; Nucleated Red Blood Cells % 0 %; Platelet Count 309 10^3/cmm (130-400); Red Blood Count 4.24 10^6/uL (4.1-5.3); Red Cell Distribution Width 12.1 % (12.1-15.1); White Blood Count 5.7 10^3/uL (4.0-10.0)
[2021-01-01 15:23] LABS: Alanine Aminotransferase 17 U/L (0-33); Albumin Level 3.9 g/dL (3.5-5.2); Alkaline Phosphatase 76 IU/L (35-105); Blood Urea Nitrogen 12 mg/dL (6-20); Calcium 8.3 mg/dL (8.5-10.5); Carbon Dioxide 26 mmol/L (22-29); Chloride 102 mmol/L (98-107); Creatinine Clr Calc Pharmacy 188.5098; Globulin 2.8 g/dL (1.3-4.6); Glomerular Filtration Rate 143.9 mL/min (90-130); Glucose 81 mg/dL (65-115); Osmolality Calculated 279 mOsm/kg (285-295); Sodium 135 mmol/L (136-145); Total Bilirubin 0.4 mg/dL (0.15-1.2); Total Protein 6.7 g/dL (6.6-8.7); Troponin(5th) Baseline 6 ng/L (0-10)
[2021-01-01 15:29] LABS: Anion Gap 10.6 (5-19); Aspartate Amino Transferase 21 U/L (0-32); Potassium 3.6 mmol/L (3.5-5.1)
[2021-01-01 15:33] LABS: D Dimer 0.47 ug/mIFEU (0-0.59)
--- NOTE | 2021-01-01 16:11 | ECG_ITS ---
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 Measurements Intervals [place] Rate: 55 P: 54 VA: 158 QRS: 22 QRSD: 88 T: 32 QT: 413 QTc: 397 Interpretive Statements SINUS BRADYCARDIA Compared to ECG 01/01/2021 13:58:16 Sinus rhythm no longer present Electronically Signed On 01-01-2021 17:52:52 CDT by Micah Taylor M.D. [id number]
[2021-01-01 16:51] VITALS: BP 122/76; PULSE 77; RESP 26; O2SAT 97
[2021-01-01 17:43] LABS: Troponin 5 2HR Delta 0 ABS# (0-10)
[2021-01-01 18:17] VITALS: BP 115/72; PULSE 85; RESP 17; O2SAT 98
== END 2021-01-01 18:17 | disposition home or self-care (01) ==
PROVIDERS: Emergency Provider Emergency Medicine; PCP Nurse Practitioner Family
DX: R07.89 Other chest pain (principal); F41.9 Anxiety disorder, unspecified; Z79.82 Long term (current) use of aspirin; F17.210 Nicotine dependence, cigarettes, uncomplicated
CPT/HCPCS: 36415; 80053; 84484; 85025; 85378; 93005; 96360; 96361; 99284; J7040

== ENCOUNTER 2021-04-18 15:37 | Emergency (ER) | payer MEDICAID, SELFPAY ==
[2021-04-18 16:38] VITALS: BP 101/70; PULSE 78; RESP 15; TEMP 37.2; O2SAT 98; BMI 34.2
[2021-04-18 17:12] LABS: SARS Covid-2 Antigen Negative (Negative)
== END 2021-04-18 15:38 | disposition home or self-care (01) ==
PROVIDERS: Emergency Provider Family Medicine; PCP Nurse Practitioner Family
DX: Z20.822 Contact with and (suspected) exposure to COVID-19 (principal)
CPT/HCPCS: 87426

== ENCOUNTER → 2021-04-22 16:46 | Outpatient (BNVA) | payer MEDICAID, SELFPAY | PROVIDERS: PCP Nurse Practitioner Family; Visit Provider Nurse Practitioner Family | DX: H66.002 Acute suppurative otitis media without spontaneous rupture of ear drum, left ear (principal); Z20.822 Contact with and (suspected) exposure to COVID-19 | CPT/HCPCS: 87635 ==

== ENCOUNTER 2021-09-06 08:18 | Emergency (ER) | payer MEDICAID, SELFPAY ==
[2021-09-06 08:19] VITALS: BP 114/65; PULSE 71; RESP 15; TEMP 36.8; O2SAT 99; BMI 33.0
--- NOTE | 2021-09-06 08:29 | XRR_ITS ---
PROCEDURE INFORMATION: Exam: XR Chest Exam date and time: 09/06/2021 8:29 AM Age: 31 years old Clinical indication: Pain; Chest pressure; Additional info: Chest pain TECHNIQUE: Imaging protocol: XR of the chest. Views: 1 view. COMPARISON: CR XR chest 1V portable [id number] 09/16/2020 7:45 AM FINDINGS: Lungs: Unremarkable. No consolidation. Pleural spaces: Unremarkable. No pleural effusion. No pneumothorax. Heart/Mediastinum: Unremarkable. No cardiomegaly. Bones/joints: Unremarkable. XR/XR chest 1V portable [id number] IMPRESSION: No acute findings. Radiation Dose CTDIVOL = (mGy): DLP = (mGy-cm)
--- NOTE | 2021-09-06 08:29 | ECG_ITS ---
[facility] Test Date: 2021-09-06 Pat Name: Noemi Patel Department: Room: Gender: Female Java Mobile Developer: : 1990 Requested By: Charlene Crenshaw Order Number: [id number] Reading MD: CHAUNCEY MCCRARY Measurements Intervals [place] Rate: 61 P: 56 [place]: 167 QRS: 12 QRSD: 77 T: 16 QT: 352 QTc: 357 Interpretive Statements SINUS RHYTHM Compared to ECG 01/01/2021 16:34:12 Sinus bradycardia no longer present Electronically Signed On 09-08-2021 12:55:42 FLIGHT OPERATIONS MANAGER by CHAUNCEY MCCRARY [id number]
--- NOTE | 2021-09-06 08:29 | ED_ITS ---
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 Patient states while at rest she developed severe pressure to her substernal left chest that she states lasted for a few minutes before subsiding on its own. Patient states there was no radiation to her discomfort. She states she has had previous episodes but none of which were this severe. Patient has a history of anxiety and SVT. She had no palpitations during recent episode and is not complaining of them now. She denies shortness of breath or difficulty breathing. She states she underwent cardiac ablation by a soc analyst in [place] a few months ago. Patient tells me several members of her household currently have active COVID. Patient tells me she did have a fever of 101 yesterday, has body aches, headache, and nausea. MD complaint: chest pain Onset (ago): hour(s) Timing of current episode: now resolved Prior episodes: Yes Onset: during rest Pain location: substernal and left chest Pain radiation: none Quality: other (pressure) Relieving factors: nothing Exacerbating factors: nothing Associated symptoms: Reports fever(s) and nausea; Deny abdominal pain, dyspnea, palpitations, syncope or vomiting Treatment prior to arrival: none Related Data: On Oral Contraceptives: No Review of Systems Const: Reports: fever(s), body aches and fatigue Eyes: Denies: change in vision ENMT: Denies: throat pain, odynophagia, nasal discharge or nasal congestion Card: Reports: chest pain; Denies: palpitations, irregular heart rhythm, edema, swelling of feet/ankles, lightheadedness, syncope, pre-syncope or orthopnea Resp: Denies: dyspnea, productive cough, non-productive cough, wheezing, hemoptysis or chest congestion GI: Reports: nausea; Denies: abdominal pain, vomiting or diarrhea Musc: Denies: neck pain, back pain, extremity pain or joint pain Skin/Breast: Denies: rash Neuro: Reports: headache(s); Denies: numbness in extremities, weakness in extremities, sensory changes or dizziness FOR[facility]LY [facility], [facility] ED PFSH: Medical History Anxiety Asthma Hypothyroidism SVT (supraventricular tachycardia) Family History Other CAD (coronary artery disease) Cancer Social History Smoking and tobacco status: current every day smoker cigarettes Packs smoked per day: 0.25 Alcohol intake: current Alcohol intake frequency: holidays/special occasions only Female Reproductive History: Date of last menstrual period: 11/01/20 Physical Exam Const: COMMON NORMALS: no acute distress, patient oriented x3, no limitations, alert and well nourished GENERAL APPEARANCE: cooperative NUTRITIONAL APPEARANCE: overweight ORIENTATION/CONSCIOUSNESS: Yes awake, Yes oriented to person, Yes oriented to place and Yes oriented to time HENMT: COMMON NORMALS: normocephalic and atraumatic HEAD & SCALP: normocephalic and atraumatic Chest: COMMONS NORMALS: normal inspection of the chest and normal palpation of entire chest wall Resp: COMMON NORMALS: normal respiratory effort and clear to auscultation bilaterally AUSCULTATION: clear to auscultation bilaterally Cardio: COMMON NORMALS: regular rate and regular rhythm RATE: regular rate RHYTHM: regular rhythm GI: COMMON NORMALS: Normal to inspection, nondistended, normoactive bowel sounds present, Soft to palpation, non-tender, No hepatosplenomegaly present and no masses PALPATION: Yes Soft to palpation and Yes No hepatosplenomegaly present Back/Pelvis: COMMON NORMALS: thoracic and lumbar spine normal to inspection, no thoracic nor lumbar tenderness and thoraco-lumbar ROM normal Extremity: COMMON NORMALS: normal to inspection, full ROM, no calf tenderness and no pedal edema Neuro: COMMON NORMALS: patient oriented x3 SENSORIUM/ORIENTATION: Yes alert, Yes oriented to person, Yes oriented to place and Yes oriented to time Skin: COMMON NORMALS: no rashes or lesions noted GENERAL SKIN EXAM: no rashes or lesions noted Course Vital Signs: Vital signs: Vital Signs Temperature 98.3 F 09/06/21 08:19 Pulse Rate 67 09/06/21 10:19 Respiratory Rate 18 09/06/21 10:19 Blood Pressure 101/69 09/06/21 10:19 Pulse Oximetry 99 09/06/21 10:19 MDM - Chest Pain MDM Narrative: Medical decision making narrative: Labs unremarkable. Normal trop. No ischemic changes, heart block, or arrhythmia noted on EKG. Care transferred to Dr. Sinclair as she is an DARRON 2. Lab Data: Labs: Lab Results 09/06/21 09/06/21 09/06/21 08:40 08:40 08:40 WBC 6.4 10^3/uL 10^3/ uL (4.0-10.0) RBC 4.35 10^6/uL 10^6 /uL (4.1-5.3) Hgb 13.6 g/dL g/dL (11.5-15.3) Hct 40.9 % % (37.0-47.0) MCV 94.0 fl fl (81-99) MCH 31.3 pg pg (28.0-34.0) MCHC 33.3 g/dL g/dL (30.0-36.0) RDW 12.2 % % (12.1-15.1) Plt Count 236 10^3/cmm 10^3 /cmm (130-400) MPV 10.1 fL fL (7.4-10.4) Neut % (Auto) 60.1 % % Lymph % (Auto) 26.8 % % Mccormick % (Auto) 9.6 % % Eos % (Auto) 2.7 % % Baso % (Auto) 0.5 % % Neut # (Auto) 3.82 10^3/uL 10^3 /uL (1.8-7.7) Lymph # (Auto) 1.7 10^3/uL 10^3/ uL (0.8-4.8) Mccormick # (Auto) 0.6 10^3/uL 10^3/ uL (0.2-0.9) Eos # (Auto) 0.2 10^3/uL 10^3/ uL (0.0-0.8) Baso # (Auto) 0.0 10^3/uL 10^3/ uL (0.0-0.1) Nucleated RBC % (a uto) 0 % % Nucleated RBCs # 0.0 /100WBC /100W BC Sodium 138 mmol/L mmol/L (136-145) Potassium 4.0 mmol/L mmol/L (3.5-5.1) Chloride 103 mmol/L mmol/L (98-107) Carbon Dioxide 23 mmol/L mmol/L (22-29) Anion Gap 16.0 (5-19) BUN 17 mg/dL mg/dL (6-20) Creatinine 0.6 mg/dL mg/dL (0.5-0.9) GFR Calculation 115.9 mL/min mL/m in (90-130) Glucose 86 mg/dL mg/dL (65-115) Calculated Osmolal ity 287 mOsm/kg mOsm/ kg (285-295) Calcium 8.4 mg/dL L mg/dL (8.5-10.5) Total Bilirubin 0.3 mg/dL mg/dL (0.15-1.2) AST 30 U/L U/L (0-32) ALT 26 U/L U/L (0-33) Alkaline Phosphata se 75 IU/L IU/L (35-105) Troponin T Baselin e 6 ng/L ng/L (0-10) Troponin T 120 Min [place] Delta Troponin T Total Protein 6.2 g/dL L g/dL (6.6-8.7) Albumin 4.1 g/dL g/dL (3.5-5.2) Globulin 2.1 g/dL g/dL (1.3-4.6) Nasal/Oral COVID-1 9 PCR 09/06/21 09/06/21 08:40 10:27 WBC RBC Hgb Hct MCV MCH MCHC RDW Plt Count MPV Neut % (Auto) Lymph % (Auto) Mccormick % (Auto) Eos % (Auto) Baso % (Auto) Neut # (Auto) Lymph # (Auto) Mccormick # (Auto) Eos # (Auto) Baso # (Auto) Nucleated RBC % (a uto) Nucleated RBCs # Sodium Potassium Chloride Carbon Dioxide Anion Gap BUN Creatinine GFR Calculation Glucose Calculated Osmolal ity Calcium Total Bilirubin AST ALT Alkaline Phosphata se Troponin T Baselin e Troponin T 120 Min [place] 6.00 ng/L ng/L (0-10) Delta Troponin T 0 ABS# ABS# (0-10) Total Protein Albumin Globulin Nasal/Oral COVID-1 9 PCR Cancelled Imaging Data^: CXR: Radiologist's impression: [address] [address] XRay Report Signed Patient: Noemi Patel Unit #: [id number] : 1990 Age/Sex: 31 / F ADM Date: 09/06/21 Loc: ER Room/Bed: Attending Dr: Ordering Provider/Ordering MD: Charlene Crenshaw Date of Service: 09/06/21 Procedure(s): XR chest 1V portable [id number] Accession Number(s): [id number] Report Number: [id number] PROCEDURE INFORMATION: Exam: XR Chest Exam date and time: 09/06/2021 8:29 AM Age: 31 years old Clinical indication: Pain; Chest pressure; Additional info: Chest pain TECHNIQUE: Imaging protocol: XR of the chest. Views: 1 view. COMPARISON: CR XR chest 1V portable [id number] 09/16/2020 7:45 AM FINDINGS: Lungs: Unremarkable. No consolidation. Pleural spaces: Unremarkable. No pleural effusion. No pneumothorax. Heart/Mediastinum: Unremarkable. No cardiomegaly. Bones/joints: Unremarkable. XR/XR chest 1V portable [id number] IMPRESSION: No acute findings. Radiation Dose CTDIVOL = (mGy): DLP = (mGy-cm) Dictated By: Jorge Rolon Signed By: Jorge Rolon Signed Date/Time: 09/06/21923 DD/ EKG Data^: EKG 1: EKG interpretation date: 09/06/21 EKG interpretation time: 08:30 Interpretation: Sinus rhythm Rate [address] elevation or depression changes noted Discharge Plan Discharge Patient Disposition: Home Clinical Impression: History of supraventricular tachycardia, Palpitation, Close exposure to COVID- 19 virus Condition: Stable Prescriptions: No Action levothyroxine 75 mcg tablet 75 mcg PO QAM RF: 0 amoxicillin-pot clavulanate [Augmentin] 875-125 mg tablet 1 tab PO BID 10 Days Qty: 20 RF: 0 Ajovy Autoinjector 225 mg/1.5 mL auto-injector 225 mg SUBCUT ONCE Qty: 1.5 RF: 3 ergocalciferol (vitamin D2) 1,250 mcg (50,000 unit) capsule 1,250 mcg PO Q7D RF: 0 albuterol sulfate [ProAir HFA] 90 mcg/actuation HFA aerosol inhaler 2 puff INHALATION QID PRN (Reason: Shortness Of Breath) RF: 0 Vitamin Plus Low Iron 27 mg iron- 1 mg tablet 1 tab PO DAILY RF: 0 cyclobenzaprine 10 mg tablet 10 mg PO TID PRN (Reason: MUSCLE SPASMS) RF: 0 ibuprofen 800 mg Tablet 800 mg PO TID PRN (Reason: Pain) RF: 0 Aspir-81 81 mg Tablet,Delayed Release (Dr/Ec) 81 mg PO ONCE RF: 0 metoprolol succinate 25 mg Tablet Extended Release 24 Hr 12.5 mg PO DAILY PRN (Reason: svt) RF: 0 ondansetron 4 mg tablet,disintegrating 4 mg PO Q4H PRN (Reason: Nausea) RF: 0 Discharge Orders: Discharge ED (Routine); Ordered 09/06/21 Ordered By: Shen Sinclair Referrals: Kendal Varghese APN [Primary Care Provider] - Patient Instructions: Opioid Safety Activity Restrictions/Additional Instructions: Maintain self quarantine until the final Covid result returns. account general manager will make arrangements for you to have a 48-hour Holter monitor. Sign Out Sign Out Data: Patient Sign Out occurred on 09/06/21 at 10:17. Patient's care was discussed, and care was transferred from to Shen Sinclair DO. Coding Level of Care Code ED Hr Recruiter for Chg Fwd Exam Comprehensive Documented by User: Shen Sinclair DO 09/06/21 11:10 HPI - Chest Pain General: Chief Complaint: Chest Pain Stated Complaint: CHEST PAIN Time Seen by Provider: 09/06/21 08:19 PFSH ED PFSH: Medical History Anxiety Asthma Hypothyroidism SVT (supraventricular tachycardia) Family History Other CAD (coronary artery disease) Cancer Social History Smoking and tobacco status: current every day smoker cigarettes Packs smoked per day: 0.25 Alcohol intake: current Alcohol intake frequency: holidays/special occasions only Course Vital Signs: Vital signs: Vital Signs Temperature 98.3 F 09/06/21 08:19 Pulse Rate 67 09/06/21 10:19 Respiratory Rate 18 09/06/21 10:19 Blood Pressure 101/69 09/06/21 10:19 Pulse Oximetry 99 09/06/21 10:19 MDM - Chest Pain MDM Narrative: Medical decision making narrative: Chart reviewed and patient discussed with midlevel. Discharge patient home she is stable at this time no evidence of SVT on monitors labs and imaging and EKGs reviewed. Recommend self quarantine until PCR Covid results are returned. Lab Data: Labs: Lab Results 09/06/21 09/06/21 09/06/21 08:40 08:40 08:40 WBC 6.4 10^3/uL 10^3/ uL (4.0-10.0) RBC 4.35 10^6/uL 10^6 /uL (4.1-5.3) Hgb 13.6 g/dL g/dL (11.5-15.3) Hct 40.9 % % (37.0-47.0) MCV 94.0 fl fl (81-99) MCH 31.3 pg pg (28.0-34.0) MCHC 33.3 g/dL g/dL (30.0-36.0) RDW 12.2 % % (12.1-15.1) Plt Count 236 10^3/cmm 10^3 /cmm (130-400) MPV 10.1 fL fL (7.4-10.4) Neut % (Auto) 60.1 % % Lymph % (Auto) 26.8 % % Mccormick % (Auto) 9.6 % % Eos % (Auto) 2.7 % % Baso % (Auto) 0.5 % % Neut # (Auto) 3.82 10^3/uL 10^3 /uL (1.8-7.7) Lymph # (Auto) 1.7 10^3/uL 10^3/ uL (0.8-4.8) Mccormick # (Auto) 0.6 10^3/uL 10^3/ uL (0.2-0.9) Eos # (Auto) 0.2 10^3/uL 10^3/ uL (0.0-0.8) Baso # (Auto) 0.0 10^3/uL 10^3/ uL (0.0-0.1) Nucleated RBC % (a uto) 0 % % Nucleated RBCs # 0.0 /100WBC /100W BC Sodium 138 mmol/L mmol/L (136-145) Potassium 4.0 mmol/L mmol/L (3.5-5.1) Chloride 103 mmol/L mmol/L (98-107) Carbon Dioxide 23 mmol/L mmol/L (22-29) Anion Gap 16.0 (5-19) BUN 17 mg/dL mg/dL (6-20) Creatinine 0.6 mg/dL mg/dL (0.5-0.9) GFR Calculation 115.9 mL/min mL/m in (90-130) Glucose 86 mg/dL mg/dL (65-115) Calculated Osmolal ity 287 mOsm/kg mOsm/ kg (285-295) Calcium 8.4 mg/dL L mg/dL (8.5-10.5) Total Bilirubin 0.3 mg/dL mg/dL (0.15-1.2) AST 30 U/L U/L (0-32) ALT 26 U/L U/L (0-33) Alkaline Phosphata se 75 IU/L IU/L (35-105) Troponin T Baselin e 6 ng/L ng/L (0-10) Troponin T 120 Min [place] Delta Troponin T Total Protein 6.2 g/dL L g/dL (6.6-8.7) Albumin 4.1 g/dL g/dL (3.5-5.2) Globulin 2.1 g/dL g/dL (1.3-4.6) Nasal/Oral COVID-1 9 PCR 09/06/21 09/06/21 08:40 10:27 WBC RBC Hgb Hct MCV MCH MCHC RDW Plt Count MPV Neut % (Auto) Lymph % (Auto) Mccormick % (Auto) Eos % (Auto) Baso % (Auto) Neut # (Auto) Lymph # (Auto) Mccormick # (Auto) Eos # (Auto) Baso # (Auto) Nucleated RBC % (a uto) Nucleated RBCs # Sodium Potassium Chloride Carbon Dioxide Anion Gap BUN Creatinine GFR Calculation Glucose Calculated Osmolal ity Calcium Total Bilirubin AST ALT Alkaline Phosphata se Troponin T Baselin e Troponin T 120 Min [place] 6.00 ng/L ng/L (0-10) Delta Troponin T 0 ABS# ABS# (0-10) Total Protein Albumin Globulin Nasal/Oral COVID-1 9 PCR Cancelled Discharge Plan Discharge Patient Disposition: Home Clinical Impression: History of supraventricular tachycardia, Palpitation, Close exposure to COVID- 19 virus Condition: Stable Prescriptions: No Action levothyroxine 75 mcg tablet 75 mcg PO QAM RF: 0 amoxicillin-pot clavulanate [Augmentin] 875-125 mg tablet 1 tab PO BID 10 Days Qty: 20 RF: 0 Ajovy Autoinjector 225 mg/1.5 mL auto-injector 225 mg SUBCUT ONCE Qty: 1.5 RF: 3 ergocalciferol (vitamin D2) 1,250 mcg (50,000 unit) capsule 1,250 mcg PO Q7D RF: 0 albuterol sulfate [ProAir HFA] 90 mcg/actuation HFA aerosol inhaler 2 puff INHALATION QID PRN (Reason: Shortness Of Breath) RF: 0 Vitamin Plus Low Iron 27 mg iron- 1 mg tablet 1 tab PO DAILY RF: 0 cyclobenzaprine 10 mg tablet 10 mg PO TID PRN (Reason: MUSCLE SPASMS) RF: 0 ibuprofen 800 mg Tablet 800 mg PO TID PRN (Reason: Pain) RF: 0 Aspir-81 81 mg Tablet,Delayed Release (Dr/Ec) 81 mg PO ONCE RF: 0 metoprolol succinate 25 mg Tablet Extended Release 24 Hr 12.5 mg PO DAILY PRN (Reason: svt) RF: 0 ondansetron 4 mg tablet,disintegrating 4 mg PO Q4H PRN (Reason: Nausea) RF: 0 Discharge Orders: Discharge ED (Routine); Ordered 09/06/21 Ordered By: Shen Sinclair Referrals: Varghese,Kendal SLAB INSTALLER [Primary Care Provider] - Patient Instructions: Opioid Safety Activity Restrictions/Additional Instructions: Maintain self quarantine until the final Covid result returns. account general manager will make arrangements for you to have a 48-hour Holter monitor. Sign Out Sign Out Data: Patient Sign Out occurred on 09/06/21 at 10:17. Patient's care was discussed, and care was transferred from to Shen Sinclair DO. Coding Level of Care Code ED Hr Recruiter for Gmg Fwd Exam Comprehensive
[2021-09-06 08:45] VITALS: BP 114/65; PULSE 60; RESP 18; O2SAT 99
[2021-09-06 09:18] LABS: Basophils % 0.5 %; Eosinophils # 0.2 10^3/uL (0.0-0.8); Eosinophils % 2.7 %; Hematocrit 40.9 % (37.0-47.0); Hemoglobin 13.6 g/dL (11.5-15.3); Lymphocytes # 1.7 10^3/uL (0.8-4.8); Lymphocytes % 26.8 %; Mean Corpuscular HGB Conc 33.3 g/dL (30.0-36.0); Mean Corpuscular Hemoglobin 31.3 pg (28.0-34.0); Mean Platelet Volume 10.1 fL (7.4-10.4); Monocytes # 0.6 10^3/uL (0.2-0.9); Monocytes % 9.6 %; Neutrophils # 3.82 10^3/uL (1.8-7.7); Neutrophils % 60.1 %; Nucleated Red Blood Cells % 0 %; Platelet Count 236 10^3/cmm (130-400); Red Blood Count 4.35 10^6/uL (4.1-5.3); Red Cell Distribution Width 12.2 % (12.1-15.1); White Blood Count 6.4 10^3/uL (4.0-10.0)
[2021-09-06 09:26] VITALS: BP 107/63; PULSE 58; RESP 17; O2SAT 99
[2021-09-06 09:37] LABS: Troponin(5th) Baseline 6 ng/L (0-10)
[2021-09-06 09:39] LABS: Alanine Aminotransferase 26 U/L (0-33); Albumin Level 4.1 g/dL (3.5-5.2); Alkaline Phosphatase 75 IU/L (35-105); Aspartate Amino Transferase 30 U/L (0-32); Blood Urea Nitrogen 17 mg/dL (6-20); Calcium 8.4 mg/dL (8.5-10.5); Carbon Dioxide 23 mmol/L (22-29); Chloride 103 mmol/L (98-107); Globulin 2.1 g/dL (1.3-4.6); Glomerular Filtration Rate 115.9 mL/min (90-130); Glucose 86 mg/dL (65-115); Osmolality Calculated 287 mOsm/kg (285-295); Sodium 138 mmol/L (136-145); Total Bilirubin 0.3 mg/dL (0.15-1.2); Total Protein 6.2 g/dL (6.6-8.7)
[2021-09-06 10:19] VITALS: BP 101/69; PULSE 67; RESP 18; O2SAT 99
--- NOTE | 2021-09-06 10:29 | ECG_ITS ---
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
[2021-09-06 11:02] LABS: Troponin 5 2HR Delta 0 ABS# (0-10)
[2021-09-07 21:27] LABS: Quest SARS-CoV-2 RNA NOT DETECTED (NOT DETECTED)
== END 2021-09-06 10:33 | disposition home or self-care (01) ==
PROVIDERS: Physician Assistant; Emergency Provider Family Medicine; PCP Nurse Practitioner Family
DX: R00.2 Palpitations (principal); Z20.822 Contact with and (suspected) exposure to COVID-19; Z79.82 Long term (current) use of aspirin; F17.210 Nicotine dependence, cigarettes, uncomplicated
CPT/HCPCS: 36415; 71045; 80053; 84484; 85025; 87635; 93005; 99283

== ENCOUNTER 2021-10-01 18:35 | Emergency (ER) | payer MEDICAID, SELFPAY ==
--- NOTE | 2021-10-01 18:53 | ED_ITS ---
HPI - Nausea/Vomiting/Diarrhea General: Chief complaint: Nausea/Vomiting/Diarrhea Stated complaint: POSSIBLE PNEUMONIA/ N/V/D Time Seen by Provider: 10/01/21 18:52 History of Present Illness: HPI Narrative: Tre Patel is a 31 year old individual who prefers male pronouns who presents to the emergency department due to respiratory symptoms inability to tolerate oral intake. He endorses symptom onset approximately 1 month ago and initially primarily respiratory symptoms. Daily cough, shortness of breath, and generalized malaise. Was treated with short course of steroids and antibiotics for bronchitis however felt improved. Over the past 5 days has had recurrent episodes of nausea vomiting and 3 days of multiple episodes of diarrhea. Associated symptoms include chills and continued shortness of breath cough. Has taken home and formal test for Covid that was negative. Overall the course of symptoms has persisted. Intensity is moderate to severe. No other specific exacerbating or relieving factors identified Review of Systems General: Reports: 10 or more systems reviewed and unremarkable except in HPI and below PFSH ED PFSH: Medical History Anxiety Asthma Hypothyroidism SVT (supraventricular tachycardia) Family History Other CAD (coronary artery disease) Cancer Social History Smoking and tobacco status: current every day smoker cigarettes Packs smoked per day: 0.25 Alcohol intake: current Alcohol intake frequency: holidays/special occasions only Female Reproductive History: Date of last menstrual period: 11/01/20 Physical Exam Narrative: EXAM NARRATIVE: GENERAL/CONSTITUTIONAL -somewhat ill-appearing. Frequent coughing episodes Eyes - PERRL, no conjunctival injection ENMT - Atraumatic external nose and ears. Dry mucous membranes NECK - supple. trachea midline CARDIOVASCULAR - regular rate and rhythm. Peripheral pulses 2+ and equal RESPIRATORY -coarse to auscultation bilaterally. Mild increased work of breathing ABDOMEN/GI - Nontender/Nondistended. No tenderness to percussion or evidence of peritonitis MSK - Extremities without obvious deformity or tenderness to palpation SKIN - Warm, Dry NEURO - alert and appropriately oriented. Moves all extremities equally. Course ED course: - Patient was seen and evaluated by me at bedside - Patient placed on cardiac monitors, IV access obtained - Initial evaluation notable for exam as above -Symptom treatment ordered - Labs notable for no leukocytosis, metabolic panel with hypokalemia and evidence of dehydration, replenishment ordered. - Imaging notable for negative chest x-ray. Given benign abdominal exam and after discussion with the patient regarding risks and benefits will defer CT abdominal scan imaging at this time - Upon serial reexamination after treatment the patient was mildly improved - Based on patient history, evaluation, labs, and imaging as interpreted the most likely cause of the patient's condition is viral syndrome though the patient does have history of asthma with concern for atypical infection which will be treated - The results of ED evaluation were discussed with the patient including prescriptions and/or symptomatic cares (if applicable) including appropriate and responsible use, followup plan, and return precautions. The patient verbalized understanding and felt safe for discharge. - Patient discharged in satisfactory condition. Vital Signs: Vital signs: Vital Signs Temperature 98.1 F 10/01/21 21:00 Pulse Rate 73 10/01/21 21:00 Respiratory Rate 18 10/01/21 21:00 Blood Pressure 124/88 10/01/21 21:00 Pulse Oximetry 99 10/01/21 21:00 MDM - Nausea/Vomiting/Diarrhea Medical Records: Attestation: I reviewed the patient's medical records. Lab Data: Attestation: I reviewed the patient's lab results. Labs: Lab Results 10/01/21 10/01/21 10/01/21 19:32 19:33 19:33 WBC 5.0 10^3/uL 10^3/ uL (4.0-10.0) RBC 4.41 10^6/uL 10^6 /uL (4.1-5.3) Hgb 13.8 g/dL g/dL (11.5-15.3) Hct 39.4 % % (37.0-47.0) MCV 89.3 fl fl (81-99) MCH 31.3 pg pg (28.0-34.0) MCHC 35.0 g/dL g/dL (30.0-36.0) RDW 12.2 % % (12.1-15.1) Plt Count 216 10^3/cmm 10^3 /cmm (130-400) MPV 10.5 fL H fL (7.4-10.4) Neut % (Auto) 65.9 % % Lymph % (Auto) 22.4 % % [place] % (Auto) 10.3 % % Eos % (Auto) 0.8 % % Baso % (Auto) 0.4 % % Neut # (Auto) 3.32 10^3/uL 10^3 /uL (1.8-7.7) Lymph # (Auto) 1.1 10^3/uL 10^3/ uL (0.8-4.8) [place] # (Auto) 0.5 10^3/uL 10^3/ uL (0.2-0.9) Eos # (Auto) 0.0 10^3/uL 10^3/ uL (0.0-0.8) Baso # (Auto) 0.0 10^3/uL 10^3/ uL (0.0-0.1) Nucleated RBC % (a uto) 0 % % Nucleated RBCs # 0.0 /100WBC /100W BC Sodium 139 mmol/L mmol/L (136-145) Potassium 3.1 mmol/L L mmol /L (3.5-5.1) Chloride 103 mmol/L mmol/L (98-107) Carbon Dioxide 19 mmol/L L mmol/ L (22-29) Anion Gap 20.1 H (5-19) BUN 15 mg/dL mg/dL (6-20) Creatinine 0.6 mg/dL mg/dL (0.5-0.9) GFR Calculation 115.9 mL/min mL/m in (90-130) Glucose 95 mg/dL mg/dL (65-115) Calculated Osmolal ity 289 mOsm/kg mOsm/ kg (285-295) Calcium 7.5 mg/dL L mg/dL (8.5-10.5) Total Bilirubin 0.3 mg/dL mg/dL (0.15-1.2) AST 26 U/L U/L (0-32) ALT 33 U/L U/L (0-33) Alkaline Phosphata se 93 IU/L IU/L (35-105) Total Protein 6.8 g/dL g/dL (6.6-8.7) Albumin 4.3 g/dL g/dL (3.5-5.2) Globulin 2.5 g/dL g/dL (1.3-4.6) HCG, Qual Negative (Negative) Urine Color Urine Appearance Urine pH Ur Specific Gravit y Urine Protein Urine Glucose (UA) Urine Ketones Urine Blood Urine Nitrate Urine Bilirubin Prot Sulfosalicyli c Acd Urine Urobilinogen Ur Leukocyte [place] ase 10/01/21 19:53 WBC RBC Hgb Hct MCV MCH MCHC RDW Plt Count MPV Neut % (Auto) Lymph % (Auto) [place] % (Auto) Eos % (Auto) Baso % (Auto) Neut # (Auto) Lymph # (Auto) [place] # (Auto) Eos # (Auto) Baso # (Auto) Nucleated RBC % (a uto) Nucleated RBCs # Sodium Potassium Chloride Carbon Dioxide Anion Gap BUN Creatinine GFR Calculation Glucose Calculated Osmolal ity Calcium Total Bilirubin AST ALT Alkaline Phosphata se Total Protein Albumin Globulin HCG, Qual Urine Color Yellow (Yellow) Urine Appearance Clear (CLEAR) Urine pH 9 H (5-7) Ur Specific Gravit y 1.010 (1.005-1.030) Urine Protein Neg (Negative) Urine Glucose (UA) Norm (Normal) Urine Ketones Negative (Negative) Urine Blood Neg (Negative) Urine Nitrate Negative (Negative) Urine Bilirubin Neg (Negative) Prot Sulfosalicyli c Acd Negative (Negative) Urine Urobilinogen Norm mg/dL mg/dL (Negative) Ur Leukocyte Annabelle ase Negative (Negative) Discharge Plan Discharge Patient Disposition: Home Clinical Impression: Cough, Nausea vomiting and diarrhea, Hypokalemia, Acute dehydration Condition: Stable Prescriptions: New doxycycline hyclate 100 mg capsule 100 mg PO BID 10 Days Qty: 20 RF: 0 Medrol (Osman) 4 mg tablets,dose pack See Rx Instructions .ROUTE .COMPLEX Qty: 21 RF: 0 Tessalon Perles 100 mg capsule 100 mg PO TID PRN (Reason: cough) Qty: 14 RF: 0 Reglan 10 mg tablet 10 mg PO Q6H PRN (Reason: nausea and vomiting) Qty: 10 RF: 0 No Action levothyroxine 75 mcg tablet 75 mcg PO QAM RF: 0 amoxicillin-pot clavulanate [Augmentin] 875-125 mg tablet 1 tab PO BID 10 Days Qty: 20 RF: 0 Ajovy Autoinjector 225 mg/1.5 mL auto-injector 225 mg SUBCUT ONCE Qty: 1.5 RF: 3 ergocalciferol (vitamin D2) 1,250 mcg (50,000 unit) capsule 1,250 mcg PO Q7D RF: 0 albuterol sulfate [ProAir HFA] 90 mcg/actuation HFA aerosol inhaler 2 puff INHALATION QID PRN (Reason: Shortness Of Breath) RF: 0 Vitamin Plus Low Iron 27 mg iron- 1 mg tablet 1 tab PO DAILY RF: 0 cyclobenzaprine 10 mg tablet 10 mg PO TID PRN (Reason: MUSCLE SPASMS) RF: 0 ibuprofen 800 mg Tablet 800 mg PO TID PRN (Reason: Pain) RF: 0 Aspir-81 81 mg Tablet,Delayed Release (Dr/Ec) 81 mg PO ONCE RF: 0 metoprolol succinate 25 mg Tablet Extended Release 24 Hr 12.5 mg PO DAILY PRN (Reason: svt) RF: 0 ondansetron 4 mg tablet,disintegrating 4 mg PO Q4H PRN (Reason: Nausea) RF: 0 Discharge Orders: Discharge ED (Routine); Ordered 10/01/21 Ordered By: Juan Prater Referrals: Kendal Varghese APN [Primary Care Provider] - Discharge Diet: Advance as tolerated and Clear Liquid Discharge Activity: Resume usual activity Patient Instructions: Acute Nausea and Vomiting (ED), Acute Diarrhea (ED), Acute Cough (ED) Activity Restrictions/Additional Instructions: Thank you for visiting the emergency department. You were seen and evaluated for cough with new symptoms including diarrhea and vomiting. The exact cause of your symptoms is unclear however is likely related to a viral syndrome. Given persistence of symptoms atypical infection is also possible, he will be given a prescription for antibiotics for your cough in addition to other prescriptions. You were noted to be mildly dehydrated on laboratory exam and your potassium was low at 3.1. Please follow-up with your primary care provider for repeat lab testing. As discussed you will be given a prescription for a different nausea medication, especially in the context of your heart history do not use this at the same time as your Zofran. Please return to the emergency department for worsening symptoms or anything else that you are concerned about and feel needs emergency department evaluation. Coding Level of Care Code ED [employer] Account Manager for Julia Emery
[2021-10-01 18:58] VITALS: BP 126/85; PULSE 90; RESP 21; TEMP 36.8; O2SAT 97; BMI 32.8
--- NOTE | 2021-10-01 19:18 | XRR_ITS ---
PROCEDURE INFORMATION: Exam: XR Chest Exam date and time: 10/01/2021 7:18 PM Age: 31 years old Clinical indication: Cough and fever; Additional info: Cough, fever TECHNIQUE: Imaging protocol: XR of the chest. Views: 1 view. COMPARISON: CR (CHEST, ) 09/06/2021 8:54 AM FINDINGS: Lungs: The lungs are clear. Pleural spaces: Unremarkable. No pleural effusion. No pneumothorax. Heart/Mediastinum: Unremarkable. No cardiomegaly. Bones/joints: Unremarkable. XR/XR chest 1V portable [id number] IMPRESSION: No acute cardiopulmonary abnormality.
[2021-10-01] MEDS: sodium chloride 0.9% 1,000 ML 999 ML IV (19:35)
[2021-10-01] MEDS: ondansetron 2 mg/ML SDV 2 mL 4 MG IVP (19:35)
[2021-10-01 19:39] LABS: Basophils % 0.4 %; Eosinophils % 0.8 %; Hematocrit 39.4 % (37.0-47.0); Hemoglobin 13.8 g/dL (11.5-15.3); Lymphocytes # 1.1 10^3/uL (0.8-4.8); Lymphocytes % 22.4 %; Mean Corpuscular Hemoglobin 31.3 pg (28.0-34.0); Mean Corpuscular Volume 89.3 fl (81-99); Mean Platelet Volume 10.5 fL (7.4-10.4); Monocytes # 0.5 10^3/uL (0.2-0.9); Monocytes % 10.3 %; Neutrophils # 3.32 10^3/uL (1.8-7.7); Neutrophils % 65.9 %; Nucleated Red Blood Cells % 0 %; Platelet Count 216 10^3/cmm (130-400); Red Blood Count 4.41 10^6/uL (4.1-5.3); Red Cell Distribution Width 12.2 % (12.1-15.1)
[2021-10-01 19:49] LABS: HCG Qualitative Urine. Negative (Negative)
[2021-10-01 19:59] LABS: Alanine Aminotransferase 33 U/L (0-33); Albumin Level 4.3 g/dL (3.5-5.2); Alkaline Phosphatase 93 IU/L (35-105); Anion Gap 20.1 (5-19); Aspartate Amino Transferase 26 U/L (0-32); Blood Urea Nitrogen 15 mg/dL (6-20); Calcium 7.5 mg/dL (8.5-10.5); Carbon Dioxide 19 mmol/L (22-29); Chloride 103 mmol/L (98-107); Globulin 2.5 g/dL (1.3-4.6); Glomerular Filtration Rate 115.9 mL/min (90-130); Glucose 95 mg/dL (65-115); Osmolality Calculated 289 mOsm/kg (285-295); Potassium 3.1 mmol/L (3.5-5.1); Sodium 139 mmol/L (136-145); Total Bilirubin 0.3 mg/dL (0.15-1.2); Total Protein 6.8 g/dL (6.6-8.7)
[2021-10-01] MEDS: benzonatate 100 mg Capsule PO (20:30)
[2021-10-01] MEDS: potassium chloride ER 20 mEq Tablet 60 MEQ PO (20:30)
[2021-10-01 21:00] VITALS: BP 124/88; PULSE 73; RESP 18; TEMP 36.7; O2SAT 99
[2021-10-01 21:21] LABS: Add Urine Microscopic? NO; Charge for UA Resulting for Rev
[2021-10-01 21:34] LABS: Bilirubin Urine Neg (Negative); Blood Urine Neg (Negative); Glucose Urine UA Norm (Normal); Ketones Urine Negative (Negative); Leukocyte Esterase Urine Negative (Negative); Nitrate Urine Negative (Negative); Protein Urine Neg (Negative); Sulfosalicylic Acid Urine Negative (Negative); Urine Appearance Clear (CLEAR); Urine Color Yellow (Yellow); Urobilinogen Urine Norm (Negative); pH Urine 9 (5-7)
[2021-10-01] MEDS: acetaminophen 500 mg Tablet 1000 MG PO (21:50)
[2021-10-01] MEDS: ketorolac 30 mg/mL INJ 15 MG IVP (22:04)
[2021-10-01] MEDS: metoclopramide 5 mg/mL SDV 2 mL 10 MG IVP (22:16)
== END 2021-10-01 23:05 | disposition home or self-care (01) ==
PROVIDERS: Emergency Provider Emergency Medicine; PCP Nurse Practitioner Family
DX: R05.9 Cough, unspecified (principal); R11.2 Nausea with vomiting, unspecified; R19.7 Diarrhea, unspecified; E87.6 Hypokalemia; E86.0 Dehydration; Z79.82 Long term (current) use of aspirin; F17.210 Nicotine dependence, cigarettes, uncomplicated
CPT/HCPCS: 71045; 80053; 81003; 81025; 85025; 96361; 96374; 96375; 99284; J1885; J2405; J2765; J7030

== ENCOUNTER 2021-11-01 13:39 | Emergency (ER) | payer MEDICAID, SELFPAY ==
--- NOTE | 2021-11-01 13:54 | XRR_ITS ---
PROCEDURE INFORMATION: Exam: XR Chest Exam date and time: 11/01/2021 1:54 PM Age: 31 years old Clinical indication: Shortness of breath; Patient HX: SOB covid+; Additional info: Chest pain TECHNIQUE: Imaging protocol: XR of the chest. Views: 1 view. COMPARISON: CR (CHEST, ) 10/01/2021 7:44 PM FINDINGS: Lungs: Unremarkable. No consolidation. Pleural spaces: Unremarkable. No pleural effusion. No pneumothorax. Heart/Mediastinum: Unremarkable. No cardiomegaly. Bones/joints: Unremarkable. XR/XR chest 1V portable [id number] IMPRESSION: No acute findings.
[2021-11-01 15:56] VITALS: BP 126/87; PULSE 71; RESP 16; TEMP 36.9; O2SAT 97; BMI 32.8
== END 2021-11-01 16:29 | disposition left against medical advice (07) ==
PROVIDERS: Emergency Provider Family Medicine; PCP Nurse Practitioner Family
DX: Z53.21 Procedure and treatment not carried out due to patient leaving prior to being seen by health care provider (principal)
CPT/HCPCS: 71045

== ENCOUNTER 2022-06-02 11:15 | Emergency (ER) | payer MEDICAID, SELFPAY ==
[2022-06-02 11:26] VITALS: BP 125/62; PULSE 60; RESP 16; TEMP 36.6; O2SAT 97; BMI 36.8
--- NOTE | 2022-06-02 11:28 | XRR_ITS ---
PROCEDURE INFORMATION: Exam: XR Chest Exam date and time: 06/02/2022 11:48 AM Age: 32 years old Clinical indication: Pain; Angina pectoris; Prior surgery; Surgery type: Ablasion; Additional info: Chest pain TECHNIQUE: Imaging protocol: Radiologic exam of the chest. Views: 1 view. Total images: 1 COMPARISON: CR XR chest 1V portable [id number] 11/01/2021 3:15 PM FINDINGS: Lungs: Unremarkable. No consolidation. Pleural spaces: Unremarkable. No pleural effusion. No pneumothorax. Heart/Mediastinum: Unremarkable. No cardiomegaly. Bones/joints: Unremarkable. XR/XR chest 1V portable [id number] IMPRESSION: No acute findings.
--- NOTE | 2022-06-02 11:28 | ECG_ITS ---
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 Measurements Intervals [place] Rate: 48 P: 67 VA: 164 QRS: 34 QRSD: 94 T: 48 QT: 433 QTc: 388 Interpretive Statements SINUS BRADYCARDIA Compared to ECG 09/06/2021 10:21:34 No significant changes Electronically Signed On 06-02-2022 17:49:48 CDT by Micah Taylor M.D. [id number]
--- NOTE | 2022-06-02 11:41 | W.ED.CHESTPA ---
HPI - Chest Pain General: Chief Complaint: Chest Pain Stated Complaint: chest pain, hypotension Time Seen by Provider: 06/02/22 11:26 History of Present Illness: 32-year-old female presenting today with left-sided chest pain. She notes sudden onset of left-sided chest pain. [place] like she was going to pass out. Patient has a frequent history of similar. She notes that her symptoms are currently resolved. She has had extensive evaluation for the same. Including labs, Holter monitors, question of seizures in the past. For which she has not found an etiology. Does not have an active seizure disorder. Review of Systems General: Reports: 10 or more systems reviewed and unremarkable except in HPI and below PFSH ED PFSH: Medical History Anxiety Asthma Hypothyroidism SVT (supraventricular tachycardia) Family History Other CAD (coronary artery disease) Cancer Social History Smoking and tobacco status: current every day smoker cigarettes Packs smoked per day: 0.25 Alcohol intake: current Alcohol intake frequency: holidays/special occasions only Female Reproductive History: Date of last menstrual period: 11/01/20 Physical Exam Const: COMMON NORMALS: no acute distress, patient oriented x3 and alert GENERAL APPEARANCE: cooperative ORIENTATION/CONSCIOUSNESS: Yes awake, Yes oriented to person, Yes oriented to place and Yes oriented to time HENMT: COMMON NORMALS: normocephalic, atraumatic, external ears normal, Normal external nose present and moist oral mucous membranes HEAD & SCALP: normal to inspection, normocephalic and atraumatic NOSE: Normal external nose present GENERAL EAR: hearing grossly impaired EXTERNAL EAR: Yes external ears normal Eye: COMMON NORMALS: Equal, round and reactive pupils present, EOMs intact bilaterally, conjunctivae normal and no scleral icterus GENERAL EYE: appearance normal, both eyes and all related structures EYELID: eyelids normal CONJUNCTIVA: Yes conjunctivae normal SCLERA: sclerae normal PUPIL: Yes Equal, round and reactive pupils present Neck/C-Spine: COMMON NORMALS: full ROM, supple and no JVD GENERAL: Yes normal visual inspection Lymph: LYMPHATIC: no lymphadenopathy noted and no lymphedema noted Chest: COMMONS NORMALS: normal inspection of the chest Resp: COMMON NORMALS: normal respiratory effort, No retractions and No use of accessory muscles Cardio: COMMON NORMALS: no JVD, regular rate and regular rhythm RATE: regular rate RHYTHM: regular rhythm GI: COMMON NORMALS: Normal to inspection, nondistended, normoactive bowel sounds present : COMMON NORMALS: Yes no CVA tenderness BLADDER/KIDNEY EXAM: Yes no CVA tenderness Back/Pelvis: COMMON NORMALS: no CVA tenderness and thoracic and lumbar spine normal to inspection Extremity: COMMON NORMALS: normal to inspection, full ROM and capillary refill normal GENERAL: Yes normal exam except as noted Neuro: COMMON NORMALS: patient oriented x3, CN's II-XII intact bilaterally, moves all extremities, no focal motor deficits, no sensory deficits noted and gait normal SENSORIUM/ORIENTATION: Yes alert, Yes oriented to person, Yes oriented to place and Yes oriented to time Psych: COMMON NORMALS: mental status grossly normal, Normal thought process present, cooperative and normal affect THOUGHT PROCESS: Normal thought process present Skin: COMMON NORMALS: no rashes or lesions noted and no wounds GENERAL SKIN EXAM: no rashes or lesions noted Course Vital Signs: Vital signs: Vital Signs Temperature 97.8 F 06/02/22 11:26 Pulse Rate 69 06/02/22 13:47 Respiratory Rate 13 06/02/22 13:47 Blood Pressure 128/78 06/02/22 13:47 Pulse Oximetry 99 06/02/22 13:47 Oxygen Delivery Me thod 06/02/22 13:47 MDM - Chest Pain Medical Decision Making 32-year-old female presenting today with chest pain. Patient with intermittent bradycardia on the monitors. EKG is unremarkable for significant abnormality. When compared to prior EKGs no interval changes. Patient with bradycardia on all prior EKGs. This appears to be her baseline heart rate. CBC is unremarkable. Troponin is unremarkable. Return precautions given, recommended routine outpatient follow-up. Lab Data : 06/02/22 11:55 06/02/22 12:52 Radiology Impressions Chest X-Ray 06/02/22 11:28 IMPRESSION: No acute findings. Laboratory Results WBC 4.9 10^3/uL (4.0-10.0) 06/02/22 11:55 RBC 4.32 10^6/uL (4.1-5.3) 06/02/22 11:55 Hgb 13.5 g/dL (11.5-15.3) 06/02/22 11:55 Hct 43.0 % (37.0-47.0) 06/02/22 11:55 MCV 99.5 fl (81-99) H 06/02/22 11:55 MCH 31.3 pg (28.0-34.0) 06/02/22 11:55 MCHC 31.4 g/dL (30.0-36.0) 06/02/22 11:55 RDW 12.1 % (12.1-15.1) 06/02/22 11:55 Plt Count 268 10^3/cmm (130-400) 06/02/22 11:55 MPV 11.1 fL (7.4-10.4) H 06/02/22 11:55 Neut % (Auto) 57.1 % 06/02/22 11:55 Lymph % (Auto) 30.2 % 06/02/22 11:55 [place] % (Auto) 10.3 % 06/02/22 11:55 Eos % (Auto) 1.6 % 06/02/22 11:55 Baso % (Auto) 0.6 % 06/02/22 11:55 Neut # (Auto) 2.81 10^3/uL (1.8-7.7) 06/02/22 11:55 Lymph # (Auto) 1.5 10^3/uL (0.8-4.8) 06/02/22 11:55 [place] # (Auto) 0.5 10^3/uL (0.2-0.9) 06/02/22 11:55 Eos # (Auto) 0.1 10^3/uL (0.0-0.8) 06/02/22 11:55 Baso # (Auto) 0.0 10^3/uL (0.0-0.1) 06/02/22 11:55 Nucleated RBC % (auto) 0 % 06/02/22 11:55 Nucleated RBCs # 0.0 /100WBC 06/02/22 11:55 D-Dimer 0.48 ug/mIFEU (0-0.59) 06/02/22 11:55 Sodium 136 mmol/L (136-145) 06/02/22 12:52 Potassium 4.4 mmol/L (3.5-5.1) 06/02/22 12:52 Chloride 101 mmol/L (98-107) 06/02/22 12:52 Carbon Dioxide 26 mmol/L (22-29) 06/02/22 12:52 Anion Gap 13.4 (5-19) 06/02/22 12:52 BUN 10 mg/dL (6-20) 06/02/22 12:52 Creatinine 0.6 mg/dL (0.5-0.9) 06/02/22 12:52 GFR Calculation 115.1 mL/min (90-130) 06/02/22 12:52 Glucose 87 mg/dL (65-115) 06/02/22 12:52 Calculated Osmolality 280 mOsm/kg (285-295) L 06/02/22 12:52 Calcium 8.7 mg/dL (8.5-10.5) 06/02/22 12:52 Total Bilirubin 0.4 mg/dL (0.15-1.2) 06/02/22 12:52 AST 16 U/L (0-32) 06/02/22 12:52 ALT 19 U/L (0-33) 06/02/22 12:52 Alkaline Phosphatase 90 U/L (35-105) 06/02/22 12:52 Troponin T Baseline 6 ng/L (0-10) 06/02/22 12:52 Total Protein 6.8 g/dL (6.6-8.7) 06/02/22 12:52 Albumin 3.8 g/dL (3.5-5.2) 06/02/22 12:52 Globulin 3.0 g/dL (1.3-4.6) 06/02/22 12:52 Discharge Plan Discharge Patient Disposition: Home Clinical Impression: Chest pain Condition: Stable Prescriptions: No Action levothyroxine 75 mcg tablet 75 mcg PO QAM amoxicillin-pot clavulanate [Augmentin] 875-125 mg tablet 1 tab PO BID 10 Days Qty: 20 0RF Ajovy Autoinjector 225 mg/1.5 mL auto-injector 225 mg SUBCUT ONCE Qty: 1.5 3RF ergocalciferol (vitamin D2) 1,250 mcg (50,000 unit) capsule 1,250 mcg PO Q7D Rx Instructions: ON MONDAYS albuterol sulfate [ProAir HFA] 90 mcg/actuation HFA aerosol inhaler 2 puff INHALATION QID PRN (Reason: Shortness Of Breath) Vitamin Plus Low Iron 27 mg iron- 1 mg tablet 1 tab PO DAILY cyclobenzaprine 10 mg tablet 10 mg PO TID PRN (Reason: MUSCLE SPASMS) ibuprofen 800 mg Tablet 800 mg PO TID PRN (Reason: Pain) Aspir-81 81 mg Tablet,Delayed Release (Dr/Ec) 81 mg PO ONCE metoprolol succinate 25 mg Tablet Extended Release 24 Hr 12.5 mg PO DAILY PRN (Reason: svt) Rx Instructions: see pharmacy comments ondansetron 4 mg tablet,disintegrating 4 mg PO Q4H PRN (Reason: Nausea) Medrol (Osman) 4 mg tablets,dose pack See Rx Instructions .ROUTE .COMPLEX Qty: 21 0RF Rx Instructions: orally per package directions Tessalon Perles 100 mg capsule 100 mg PO TID PRN (Reason: cough) Qty: 14 0RF Reglan 10 mg tablet 10 mg PO Q6H PRN (Reason: nausea and vomiting) Qty: 10 0RF Discharge Orders: Discharge ED (Routine); Ordered 06/02/22 Ordered By: Preston Bravo Referrals: Varghese,Kendal, FUEL HOUSE ATTENDANT [Primary Care Provider] - Discharge Diet: Advance as tolerated Discharge Activity: Resume usual activity Patient Instructions: Chest Pain (ED) Coding Level of Care Code ED Manager Chemistry for Chg Fwd Exam Comprehensive
[2022-06-02 12:05] LABS: Basophils % 0.6 %; Eosinophils # 0.1 10^3/uL (0.0-0.8); Eosinophils % 1.6 %; Hemoglobin 13.5 g/dL (11.5-15.3); Lymphocytes # 1.5 10^3/uL (0.8-4.8); Lymphocytes % 30.2 %; Mean Corpuscular HGB Conc 31.4 g/dL (30.0-36.0); Mean Corpuscular Hemoglobin 31.3 pg (28.0-34.0); Mean Corpuscular Volume 99.5 fl (81-99); Mean Platelet Volume 11.1 fL (7.4-10.4); Monocytes # 0.5 10^3/uL (0.2-0.9); Monocytes % 10.3 %; Neutrophils # 2.81 10^3/uL (1.8-7.7); Neutrophils % 57.1 %; Nucleated Red Blood Cells % 0 %; Platelet Count 268 10^3/cmm (130-400); Red Blood Count 4.32 10^6/uL (4.1-5.3); Red Cell Distribution Width 12.1 % (12.1-15.1); White Blood Count 4.9 10^3/uL (4.0-10.0)
[2022-06-02 12:20] LABS: D Dimer 0.48 ug/mIFEU (0-0.59)
[2022-06-02 12:24] VITALS: BP 125/92; PULSE 55; RESP 15
[2022-06-02 13:24] LABS: Alanine Aminotransferase 19 U/L (0-33); Albumin Level 3.8 g/dL (3.5-5.2); Alkaline Phosphatase 90 U/L (35-105); Anion Gap 13.4 (5-19); Aspartate Amino Transferase 16 U/L (0-32); Blood Urea Nitrogen 10 mg/dL (6-20); Calcium 8.7 mg/dL (8.5-10.5); Carbon Dioxide 26 mmol/L (22-29); Chloride 101 mmol/L (98-107); Glomerular Filtration Rate 115.1 mL/min (90-130); Glucose 87 mg/dL (65-115); Osmolality Calculated 280 mOsm/kg (285-295); Potassium 4.4 mmol/L (3.5-5.1); Sodium 136 mmol/L (136-145); Total Bilirubin 0.4 mg/dL (0.15-1.2); Total Protein 6.8 g/dL (6.6-8.7); Troponin(5th) Baseline 6 ng/L (0-10)
[2022-06-02 13:47] VITALS: BP 128/78; PULSE 69; RESP 13; O2SAT 99
--- NOTE | 2022-06-02 13:55 | ECG_ITS ---
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 Measurements Intervals [place] Rate: 55 P: 60 [place]: 186 QRS: 33 QRSD: 83 T: 42 QT: 406 QTc: 389 Interpretive Statements SINUS BRADYCARDIA Compared to ECG 06/02/2022 12:11:35 No significant changes Electronically Signed On 06-02-2022 17:51:55 CDT by Micah Taylor M.D. [id number]
[2022-06-02 14:46] VITALS: BP 113/72; PULSE 59; RESP 18; O2SAT 100
[2022-06-02 15:14] LABS: Troponin 5 2HR Delta 0 ABS# (0-10)
== END 2022-06-02 14:49 | disposition home or self-care (01) ==
PROVIDERS: Emergency Provider Emergency Medicine; PCP Nurse Practitioner Family
DX: R07.9 Chest pain, unspecified (principal); Z79.82 Long term (current) use of aspirin; F17.210 Nicotine dependence, cigarettes, uncomplicated
CPT/HCPCS: 36415; 71045; 80053; 84484; 85025; 85378; 93005; 99285

== ENCOUNTER → 2022-07-23 11:41 | Outpatient (BNVA) | payer MEDICAID, SELFPAY | PROVIDERS: PCP Nurse Practitioner Family; Visit Provider Nurse Practitioner Family | DX: T14.90XA Injury, unspecified, initial encounter (principal); M79.642 Pain in left hand | CPT/HCPCS: 73130 ==

== ENCOUNTER 2022-08-20 22:07 | Emergency (ER) | payer MEDICAID, SELFPAY ==
[2022-08-20 22:09] VITALS: BP 123/74; PULSE 77; RESP 20; TEMP 36.3; O2SAT 98; BMI 37.8
--- NOTE | 2022-08-20 22:13 | XRR_ITS ---
PROCEDURE INFORMATION: Exam: XR Chest Exam date and time: 08/20/2022 11:19 PM Age: 32 years old Clinical indication: Pain; Angina pectoris and chest pressure; Prior surgery; Surgery date: 1-6 months; Additional info: Cp TECHNIQUE: Imaging protocol: Radiologic exam of the chest. Views: 1 view. COMPARISON: CR XR chest 1V portable [id number] 06/02/2022 11:48 AM FINDINGS: Lungs: Unremarkable. No consolidation. Pleural spaces: Unremarkable. No pleural effusion. No pneumothorax. Heart/Mediastinum: Unremarkable. No cardiomegaly. Bones/joints: Unremarkable. XR/XR chest 1V portable [id number] IMPRESSION: No acute findings.
--- NOTE | 2022-08-20 22:13 | ED_ITS ---
HPI - Chest Pain General: Chief Complaint: Chest Pain Stated Complaint: CP Time Seen by Provider: 08/20/22 22:11 Source: patient and EMS Mode of arrival: EMS Limitations: no limitations History of Present Illness: 32-year-old female has a history of SVT states that 2 hours ago she had a period where she felt like her heart was racing and it went away she states it started 30 minutes ago with a sharp pain that lasted a few minutes. States pain is very sharp in the center of her chest she states it is improved currently she is pain-free she denies any shortness of breath she denies any fever denies any vomiting denies any cough. Associated symptoms: Deny abdominal pain, dyspnea, fever(s), nausea or vomiting Review of Systems Const: Denies: fever(s), chills, body aches or change in appetite Eyes: Denies: blurry vision or eye discomfort ENMT: Denies: throat pain or dental pain Card: Reports: chest pain Resp: Denies: dyspnea GI: Denies: abdominal pain, nausea, vomiting or diarrhea : Denies: dysuria Musc: Denies: neck pain or back pain Skin/Breast: Denies: rash Neuro: Denies: headache(s) Psych: Denies: depression Felix/Lymph: Denies: easy bruising All/Imm: Denies: urticaria PFSH ED PFSH: Medical History Anxiety Asthma Hypothyroidism SVT (supraventricular tachycardia) Family History Other CAD (coronary artery disease) Cancer Social History Smoking and tobacco status: current every day smoker (3 CIGARETTES/DAY) cigaret betito Packs smoked per day: 0.25 Second hand smoke exposure: No Alcohol intake: current Alcohol intake frequency: holidays/special occasions only Alcohol type: hard liquor Female Reproductive History: Date of last menstrual period: 11/01/20 Physical Exam Const: COMMON NORMALS: no acute distress, patient oriented x3 and healthy appearing HENMT: COMMON NORMALS: normocephalic and atraumatic HEAD & SCALP: normocephalic and atraumatic Eye: COMMON NORMALS: Equal, round and reactive pupils present and EOMs intact bilaterally PUPIL: Yes Equal, round and reactive pupils present Neck/C-Spine: COMMON NORMALS: full ROM and supple Chest: COMMONS NORMALS: normal inspection of the chest and normal palpation of entire chest wall Resp: COMMON NORMALS: normal respiratory effort, No retractions, No use of accessory muscles and clear to auscultation bilaterally AUSCULTATION: clear to auscultation bilaterally Cardio: COMMON NORMALS: regular rate, regular rhythm and No murmurs present (Cardio) RATE: regular rate RHYTHM: regular rhythm GI: COMMON NORMALS: Normal to inspection, nondistended, normoactive bowel sounds present, Soft to palpation, non-tender and no masses PALPATION: Yes Soft to palpation Extremity: COMMON NORMALS: normal to inspection and full ROM Neuro: COMMON NORMALS: patient oriented x3, moves all extremities and no focal motor deficits Psych: COMMON NORMALS: mental status grossly normal, Normal thought process present and cooperative THOUGHT PROCESS: Normal thought process present Skin: COMMON NORMALS: no rashes or lesions noted and no wounds GENERAL SKIN EXAM: no rashes or lesions noted Course Vital Signs: Vital signs: Vital Signs Temperature 97.3 F L 08/20/22 22:09 Pulse Rate 77 08/20/22 22:09 Respiratory Rate 20 H 08/20/22 22:09 Blood Pressure 123/74 08/20/22 22:09 Pulse Oximetry 98 08/20/22 22:09 Oxygen Delivery Me thod 08/20/22 22:09 MDM - Chest Pain Medical Decision Making Patient presents here with chest pains atypical in nature she is well-appearing here her troponins normal EKG x-ray is normal heart rates been normal she is stable for discharge she is to follow-up with PCP and return if worsening she understands agrees plan. Lab Data : 08/20/22 22:15 08/20/22 22:15 Radiology Impressions Chest X-Ray 08/20/22 22:13 IMPRESSION: No acute findings. Laboratory Results WBC 8.6 10^3/uL (4.0-10.0) 08/20/22 22:15 RBC 4.36 10^6/uL (4.1-5.3) 08/20/22 22:15 Hgb 13.7 g/dL (11.5-15.3) 08/20/22 22:15 Hct 41.1 % (37.0-47.0) 08/20/22 22:15 MCV 94.3 fl (81-99) 08/20/22 22:15 MCH 31.4 pg (28.0-34.0) 08/20/22 22:15 MCHC 33.3 g/dL (30.0-36.0) 08/20/22 22:15 RDW 12.3 % (12.1-15.1) 08/20/22 22:15 Plt Count 275 10^3/cmm (130-400) 08/20/22 22:15 MPV 10.2 fL (7.4-10.4) 08/20/22 22:15 Neut % (Auto) 57.7 % 08/20/22:15 Lymph % (Auto) 29.6 % 08/20/22 22:15 [place] % (Auto) 8.9 % 08/20/22 22:15 Eos % (Auto) 3.4 % 08/20/22:15 Baso % (Auto) 0.2 % 08/20/22:15 Neut # (Auto) 4.94 10^3/uL (1.8-7.7) 08/20/22 22:15 Lymph # (Auto) 2.5 10^3/uL (0.8-4.8) 08/20/22 22:15 [place] # (Auto) 0.8 10^3/uL (0.2-0.9) 08/20/22 22:15 Eos # (Auto) 0.3 10^3/uL (0.0-0.8) 08/20/22:15 Baso # (Auto) 0.0 10^3/uL (0.0-0.1) 08/20/22 22:15 Nucleated RBC % (auto) 0 % 08/20/22:15 Nucleated RBCs # 0.0 /100WBC 08/20/22 22:15 Sodium 136 mmol/L (136-145) 08/20/22 22:15 Potassium 3.5 mmol/L (3.5-5.1) 08/20/22 22:15 Chloride 101 mmol/L (98-107) 08/20/22 22:15 Carbon Dioxide 24 mmol/L (22-29) 08/20/22 22:15 Anion Gap 14.5 (5-19) 08/20/22 22:15 BUN 21 mg/dL (6-20) H 08/20/22 22:15 Creatinine 0.6 mg/dL (0.5-0.9) 08/20/22 22:15 GFR Calculation 115.1 mL/min (90-130) 08/20/22 22:15 Glucose 97 mg/dL (65-115) 08/20/22 22:15 Calculated Osmolality 285 mOsm/kg (285-295) 08/20/22 22:15 Calcium 8.8 mg/dL (8.5-10.5) 08/20/22 22:15 Total Bilirubin 0.2 mg/dL (0.15-1.2) 08/20/22 22:15 AST 19 U/L (0-32) 08/20/22 22:15 ALT 20 U/L (0-33) 08/20/22 22:15 Alkaline Phosphatase 83 U/L (35-105) 08/20/22 22:15 Troponin T Baseline 6 ng/L (0-10) 08/20/22 22:15 Total Protein 7.0 g/dL (6.6-8.7) 08/20/22 22:15 Albumin 4.2 g/dL (3.5-5.2) 08/20/22 22:15 Globulin 2.8 g/dL (1.3-4.6) 08/20/22 22:15 EKG Data EKG 1: I personally reviewed and interpreted this EKG as follows: EKG interpretation date: 08/20/22 EKG interpretation time: 22:15 Interpretation: nsr hr [address] or t wave abnormalities qrs 81 qtc 382 Discharge Plan Discharge Patient Disposition: Home Clinical Impression: Chest pain Condition: Stable Prescriptions: No Action levothyroxine 75 mcg tablet 75 mcg PO QAM ergocalciferol (vitamin D2) 1,250 mcg (50,000 unit) capsule 1,250 mcg PO Q7D Rx Instructions: ON MONDAYS albuterol sulfate [ProAir HFA] 90 mcg/actuation HFA aerosol inhaler 2 puff INHALATION QID PRN (Reason: Shortness Of Breath) Vitamin Plus Low Iron 27 mg iron- 1 mg tablet 1 tab PO DAILY cyclobenzaprine 10 mg tablet 10 mg PO TID PRN (Reason: MUSCLE SPASMS) ibuprofen 800 mg Tablet 800 mg PO TID PRN (Reason: Pain) Aspir-81 81 mg Tablet,Delayed Release (Dr/Ec) 81 mg PO ONCE ondansetron 4 mg tablet,disintegrating 4 mg PO Q4H PRN (Reason: Nausea) Discharge Orders: Discharge ED (Routine); Ordered 08/20/22 Ordered By: Jonas Brownlee Referrals: Abeba Zuleta, ANIBAL [Nurse Practitioner] - 1-3 days Discharge Diet: Advance as tolerated Discharge Activity: Resume usual activity Patient Instructions: Chest Pain (ED) Coding Level of Care Code ED Bullet Maker for Gmg Fwd Exam Comprehensive
--- NOTE | 2022-08-20 22:13 | ECG_ITS ---
[facility] Test Date: 2022-08-20 Pat Name: Noemi Patel Department: Room: Gender: Female Rn Iv Therapy: : 1990 Requested By: Jonas Brownlee Order Number: [id number] Chandana MD: Pee Ford M.D. Measurements Intervals [place] Rate: 73 P: 61 ME: 163 QRS: 30 QRSD: 81 T: 47 QT: 366 QTc: 404 Interpretive Statements SINUS RHYTHM Compared to ECG 06/02/2022 13:55:13 Sinus bradycardia no longer present Electronically Signed On 08-22-2022 14:05:54 WHEEL SETTER by Pee Ford M.D. [email or web address] hospital of [email or web address] [email or web address] health [id number] f
[2022-08-20 22:29] LABS: Basophils % 0.2 %; Eosinophils # 0.3 10^3/uL (0.0-0.8); Eosinophils % 3.4 %; Hematocrit 41.1 % (37.0-47.0); Hemoglobin 13.7 g/dL (11.5-15.3); Lymphocytes # 2.5 10^3/uL (0.8-4.8); Lymphocytes % 29.6 %; Mean Corpuscular HGB Conc 33.3 g/dL (30.0-36.0); Mean Corpuscular Hemoglobin 31.4 pg (28.0-34.0); Mean Corpuscular Volume 94.3 fl (81-99); Mean Platelet Volume 10.2 fL (7.4-10.4); Monocytes # 0.8 10^3/uL (0.2-0.9); Monocytes % 8.9 %; Neutrophils # 4.94 10^3/uL (1.8-7.7); Neutrophils % 57.7 %; Nucleated Red Blood Cells % 0 %; Platelet Count 275 10^3/cmm (130-400); Red Blood Count 4.36 10^6/uL (4.1-5.3); Red Cell Distribution Width 12.3 % (12.1-15.1); White Blood Count 8.6 10^3/uL (4.0-10.0)
[2022-08-20 23:05] LABS: Alanine Aminotransferase 20 U/L (0-33); Albumin Level 4.2 g/dL (3.5-5.2); Alkaline Phosphatase 83 U/L (35-105); Anion Gap 14.5 (5-19); Aspartate Amino Transferase 19 U/L (0-32); Blood Urea Nitrogen 21 mg/dL (6-20); Calcium 8.8 mg/dL (8.5-10.5); Carbon Dioxide 24 mmol/L (22-29); Chloride 101 mmol/L (98-107); Globulin 2.8 g/dL (1.3-4.6); Glomerular Filtration Rate 115.1 mL/min (90-130); Glucose 97 mg/dL (65-115); Osmolality Calculated 285 mOsm/kg (285-295); Potassium 3.5 mmol/L (3.5-5.1); Sodium 136 mmol/L (136-145); Total Bilirubin 0.2 mg/dL (0.15-1.2)
[2022-08-20 23:06] LABS: Troponin(5th) Baseline 6 ng/L (0-10)
[2022-08-20 23:23] VITALS: BP 123/56; PULSE 65; RESP 16; O2SAT 98
== END 2022-08-20 23:23 | disposition home or self-care (01) ==
PROVIDERS: Emergency Provider Emergency Medicine; PCP Nurse Practitioner Family
DX: R07.9 Chest pain, unspecified (principal); Z79.82 Long term (current) use of aspirin; F17.210 Nicotine dependence, cigarettes, uncomplicated
CPT/HCPCS: 71045; 80053; 84484; 85025; 93005; 99285

== ENCOUNTER 2022-11-04 19:10 | Emergency (ER) | payer MEDICAID, SELFPAY ==
--- NOTE | 2022-11-04 19:10 | W.ED.HA ---
HPI - Headache General: Chief Complaint: Headache Stated Complaint: HEADACHE Time Seen by Provider: 11/04/22 19:10 History of Present Illness: Ms Patel is a 32-year-old lady with history of thyroid disorder, SVT, anxiety, asthma presenting to the emergency department due to generalized illness. She reports approximately 3-day onset of symptoms mostly with headache which has been generalized and in the front of her head. She also endorses cough, generalized malaise, fevers, mild shortness of breath. She has bilateral rib discomfort. She had a fall yesterday though unclear of loss of consciousness. What changed today that brought her in is that she had 3 severe episodes of short lasting pain right in the middle of her forehead between her eyes. These have since resolved though she still feels generally unwell. Denies any new associated neurologic symptoms. Intensity symptoms is moderate. No other specific changes in health, exacerbating, or alleviating factors identified. Onset (ago): day(s) Onset description: gradually Location: frontal Severity: moderate Exacerbating factors: light and noise Relieving factors: nothing Associated symptoms: Reports cough, malaise and pre-syncope Review of Systems General: Reports: 10 or more systems reviewed and unremarkable except in HPI and below Const: Reports: malaise Card: Reports: pre-syncope [facility] ED PFSH: Medical History Anxiety Asthma Hypothyroidism SVT (supraventricular tachycardia) Family History Other CAD (coronary artery disease) Cancer Social History Smoking and tobacco status: current every day smoker (3 CIGARETTES/DAY) cigarettes Packs smoked per day: 0.25 Second hand smoke exposure: No Alcohol intake: current Alcohol intake frequency: holidays/special occasions only Alcohol type: hard liquor Female Reproductive History: Date of last menstrual period: 11/01/20 Physical Exam Const: COMMON NORMALS: patient oriented x3 and alert GENERAL APPEARANCE: cooperative, well developed and ill appearing (Mildly) HENMT: COMMON NORMALS: normocephalic and atraumatic HEAD & SCALP: normocephalic and atraumatic THROAT: posterior oropharynx normal Eye: COMMON NORMALS: conjunctivae normal CONJUNCTIVA: Yes conjunctivae normal SCLERA: sclerae normal Neck/C-Spine: COMMON NORMALS: supple and no meningeal signs GENERAL: Yes trachea midline Resp: COMMON NORMALS: clear to auscultation bilaterally EFFORT & INSPECTION: Yes able to speak in complete sentences AUSCULTATION: clear to auscultation bilaterally Cardio: COMMON NORMALS: regular rate and regular rhythm RATE: regular rate RHYTHM: regular rhythm GI: COMMON NORMALS: Soft to palpation PALPATION: Yes Soft to palpation and No Tenderness to palpation present (GI) PERCUSSION: normal to percussion Extremity: GENERAL: Yes normal exam except as noted and No edema Neuro: COMMON NORMALS: patient oriented x3, CN's II-XII intact bilaterally, moves all extremities, no focal motor deficits and no sensory deficits noted SENSORIUM/ORIENTATION: Yes alert and No Orientation impaired MENINGEAL SIGNS: Yes no meningeal signs Psych: COMMON NORMALS: mental status grossly normal and Normal thought process present THOUGHT PROCESS: Normal thought process present Course Vital Signs: Vital signs: Vital Signs Temperature 98.4 F 11/04/22 19:19 Pulse Rate 77 11/04/22 21:07 Respiratory Rate 18 11/04/22 21:07 Blood Pressure 121/80 11/04/22 21:07 Pulse Oximetry 97 11/04/22 21:07 Oxygen Delivery Me thod 11/04/22 19:19 MDM - Headache Medical Decision Making 32-year-old lady presenting with generalized illness including congestion and headache. Somewhat ill in appearance, nontoxic and there are no focal neurologic deficits or meningismus. EKG notable for sinus rhythm with nonspecific ST segment abnormalities, normal intervals, no STEMI. Labs with no leukocytosis or other significant hematologic or metabolic abnormality. No evidence of urinary tract infection. Viral panel delayed in laboratory due to machine error Given severity of symptoms and possible syncope with head strike imaging appropriate. No lobar consolidation or pneumothorax. CT head notable for sinusitis, no traumatic injuries to head or cervical spine. On reassessment patient improved with complete resolution of headache with fluids and headache cocktail. Given description of symptoms I will plan to treat for patient sinusitis. Viral panel pending. The results of ED evaluation were discussed with the patient including prescriptions and/or symptomatic cares (if applicable) including appropriate and responsible use, followup plan, and return precautions. The patient verbalized understanding and felt safe for discharge. Medical Records I reviewed the patient's medical records. Lab Data I reviewed the patient's lab results. 11/04/22 19:20 11/04/22 19:20 Radiology Impressions Cervical Spine CT 11/04/22: IMPRESSION: No acute abnormality of the cervical spine. Chest X-Ray 11/04/22: IMPRESSION: 1. No acute abnormality demonstrated. 2. There is no interval change from the prior examination. Head CT 11/04/22 IMPRESSION: 1. No acute intracranial abnormality demonstrated. This is unchanged from CT head of 11/08/2020. 2. Mild mucoperiosteal thickening noted in the bilateral frontal, bilateral ethmoid, and bilateral maxillary sinuses. This is a new finding when compared to 11/08/2020. Laboratory Results WBC 4.1 10^3/uL (4.0-10.0) 11/04/22 19:20 RBC 4.17 10^6/uL (4.1-5.3) 11/04/22 19:20 Hgb 12.7 g/dL (11.5-15.3) 11/04/22 19:20 Hct 39.9 % (37.0-47.0) 11/04/22 19:20 MCV 95.7 fl (81-99) 11/04/22 19:20 MCH 30.5 pg (28.0-34.0) 11/04/22 19:20 MCHC 31.8 g/dL (30.0-36.0) 11/04/22 19:20 RDW 12.6 % (12.1-15.1) 11/04/22 19:20 Plt Count 206 10^3/cmm (130-400) 11/04/22 19:20 MPV 10.7 fL (7.4-10.4) H 11/04/22 19:20 Neut % (Auto) 53.8 % 11/04/22 19:20 Lymph % (Auto) 29.8 % 11/04/22 19:20 [place] % (Auto) 14.5 % 11/04/22 19:20 Eos % (Auto) 1.2 % 11/04/22 19:20 Baso % (Auto) 0.5 % 11/04/22 19:20 Neut # (Auto) 2.22 10^3/uL (1.8-7.7) 11/04/22 19:20 Lymph # (Auto) 1.2 10^3/uL (0.8-4.8) 11/04/22 19:20 [place] # (Auto) 0.6 10^3/uL (0.2-0.9) 11/04/22 19:20 Eos # (Auto) 0.1 10^3/uL (0.0-0.8) 11/04/22 19:20 Baso # (Auto) 0.0 10^3/uL (0.0-0.1) 11/04/22 19:20 Nucleated RBC % (auto) 0 % 11/04/22 19:20 Nucleated RBCs # 0.0 /100WBC 11/04/22 19:20 Sodium 138 mmol/L (136-145) 11/04/22 19:20 Potassium 3.5 mmol/L (3.5-5.1) 11/04/22 19:20 Chloride 101 mmol/L (98-107) 11/04/22 19:20 Carbon Dioxide 26 mmol/L (22-29) 11/04/22 19:20 Anion Gap 14.5 (5-19) 11/04/22 19:20 BUN 16 mg/dL (6-20) 11/04/22 19:20 Creatinine 0.6 mg/dL (0.5-0.9) 11/04/22 19:20 GFR Calculation 115.1 mL/min (90-130) 11/04/22 19:20 Glucose 91 mg/dL (65-115) 11/04/22 19:20 Calculated Osmolality 287 mOsm/kg (285-295) 11/04/22 19:20 Calcium 8.8 mg/dL (8.5-10.5) 11/04/22 19:20 Total Bilirubin 0.3 mg/dL (0.15-1.2) 11/04/22 19:20 AST 21 U/L (0-32) 11/04/22 19:20 ALT 22 U/L (0-33) 11/04/22 19:20 Alkaline Phosphatase 97 U/L (35-105) 11/04/22 19:20 C-Reactive Protein 28.7 mg/L (0.0-4.9) H 11/04/22 19:20 Total Protein 6.6 g/dL (6.6-8.7) 11/04/22 19:20 Albumin 3.9 g/dL (3.5-5.2) 11/04/22 19:20 Globulin 2.7 g/dL (1.3-4.6) 11/04/22 19:20 Procalcitonin 0.03 ng/mL (0-0.5) 11/04/22 19:20 TSH 1.61 uIU/mL (0.27-4.20) 11/04/22 19:20 Urine Color Yellow (Yellow) 11/04/22 19:41 Urine Appearance Hazy (CLEAR) A 11/04/22 19:41 Urine pH 6 (5-7) 11/04/22 19:41 Ur Specific [place] 1.020 (1.005-1.030) 11/04/22 19:41 Urine Protein Neg (Negative) 11/04/22 19:41 Urine Glucose (UA) Norm (Normal) 11/04/22 19:41 Urine Ketones 1+ (Negative) H 11/04/22 19:41 Urine Blood Neg (Negative) 11/04/22 19:41 Urine Nitrate Negative (Negative) 11/04/22 19:41 Urine Bilirubin Neg (Negative) 11/04/22 19:41 Urine Urobilinogen Neg mg/dL (Negative) 11/04/22 19:41 Ur Leukocyte Esterase Trace (Negative) H 11/04/22 19:41 Urine RBC None /hpf (0-2) 11/04/22 19:41 Urine WBC Rare /hpf (0-5) 11/04/22 19:41 Ur Squamous Epith Cells 10-15 /hpf (0-5) H 11/04/22 19:41 Amorphous Sediment Not Reportable 11/04/22 19:41 Urine Bacteria 1+ /hpf (NONE) H 11/04/22 19:41 Coronavirus 229E (PCR) Not detected (NOT DETECT) 11/04/22 19:41 SARS-CoV-2 (PCR) Detected (NOT DETECT) A 11/04/22 19:41 Discharge Plan Discharge Patient Disposition: Home Clinical Impression: Headache, Acute pansinusitis Condition: Stable Prescriptions: New amoxicillin-pot clavulanate 875-125 mg tablet 1 tab PO BID Qty: 20 0RF No Action levothyroxine 75 mcg tablet 75 mcg PO QAM amoxicillin-pot clavulanate 875-125 mg tablet 1 tab PO BID 10 Days Qty: 20 0RF promethazine-DM 6.25-15 mg/5 mL syrup 5 ml PO Q6H PRN (Reason: cough) Qty: 180 0RF ketorolac 10 mg tablet 10 mg PO Q6H PRN (Reason: pain) 5 Days Qty: 20 0RF doxycycline hyclate 100 mg capsule 100 mg PO BID 10 Days Qty: 20 0RF ergocalciferol (vitamin D2) 1,250 mcg (50,000 unit) capsule 1,250 mcg PO Q7D Rx Instructions: ON MONDAYS albuterol sulfate [ProAir HFA] 90 mcg/actuation HFA aerosol inhaler 2 puff INHALATION QID PRN (Reason: Shortness Of Breath) Vitamin Plus Low Iron 27 mg iron- 1 mg tablet 1 tab PO DAILY cyclobenzaprine 10 mg tablet 10 mg PO TID PRN (Reason: MUSCLE SPASMS) ibuprofen 800 mg Tablet 800 mg PO TID PRN (Reason: Pain) Aspir-81 81 mg Tablet,Delayed Release (Dr/Ec) 81 mg PO ONCE ondansetron 4 mg tablet,disintegrating 4 mg PO Q4H PRN (Reason: Nausea) Discharge Orders: Discharge ED (Routine); Ordered 11/04/22 Ordered By: Juan Prater Referrals: Kendal Varghese APN [Primary Care Provider] - Discharge Diet: Usual diet Discharge Activity: Resume usual activity Patient Instructions: Sinusitis (ED), Acute Headache (ED) Activity Restrictions/Additional Instructions: Thank you for visiting the emergency department. You were seen and evaluated for generalized illness including headache and fall. The most likely cause of your symptoms is sinusitis. This will be treated with antibiotics. You may use zuat-yov-hhmavvv medications such as acetaminophen and ibuprofen for pain however please do not exceed the daily recommended dosage as listed on the packaging and please keep in mind that many namebrand medications contain the same active ingredients. Please avoid these medications if previously instructed to do so by another physician due to other underlying medical condition. I would expect improvement in the next few days. Please follow-up with a primary care provider. Return to the emergency department for worsening symptoms or anything else that you are concerned about a feel needs emergency department evaluation. Coding Level of Care Code ED Etl Database Developer for Julia Emery
[2022-11-04 19:16] VITALS: BMI 37.5
[2022-11-04 19:19] VITALS: BP 136/83; PULSE 89; RESP 16; TEMP 36.9; O2SAT 96
--- NOTE | 2022-11-04 19:23 | CTR_ITS ---
PROCEDURE INFORMATION: Exam: CT Cervical Spine Without Contrast Exam date and time: 11/04/2022 8:19 PM Age: 32 years old Clinical indication: Injury or trauma; Blunt trauma; Patient HX: Fall yesterday. Patient states she does not remember how she fell or if she hit her head. C/O head and neck pain. ; Additional info: Fall, neck pain TECHNIQUE: Imaging protocol: Computed tomography of the cervical spine without contrast. Radiation optimization: All CT scans at this facility use at least one of these dose optimization techniques: automated exposure control; mA and/or kV adjustment per patient size (includes targeted exams where dose is matched to clinical indication); or iterative reconstruction. Other protocol: This patient has received [address] and 0 known cardiac nuclear medicine studies in the 12 months prior to the current study. COMPARISON: CT head wo con* [id number] 11/04/2022 8:16 PM RADIATION DOSE METRICS: Total DLP (mGy-cm): 515.77 FINDINGS: Bones/joints: Vertebral body heights are preserved. No compression fractures are noted. Vertebral alignment is physiologic. Intervertebral disc heights are preserved. No significant intervertebral disc narrowing. No spinal canal or neural foraminal stenosis. Lungs: The lung apices are clear. Pleural spaces: No apical pneumothorax demonstrated. Soft tissues: The soft tissues are unremarkable. CT/CT cervical spin wo con* [id number] IMPRESSION: No acute abnormality of the cervical spine.
--- NOTE | 2022-11-04 19:23 | XRR_ITS ---
PROCEDURE INFORMATION: Exam: XR Chest Exam date and time: 11/04/2022 7:28 PM Age: 32 years old Clinical indication: Cough; Additional info: Cp, cough TECHNIQUE: Imaging protocol: Radiologic exam of the chest. Views: 1 view. COMPARISON: CR (CHEST, ) 08/20/2022 11:19 PM FINDINGS: Lungs: No consolidation. Pleural spaces: No pleural effusion. No pneumothorax. Heart/Mediastinum: No cardiomegaly. Bones/joints: Unremarkable. XR/XR chest 1V portable [id number] IMPRESSION: 1. No acute abnormality demonstrated. 2. There is no interval change from the prior examination.
--- NOTE | 2022-11-04 19:23 | CTR_ITS ---
PROCEDURE INFORMATION: Exam: CT Head Without Contrast Exam date and time: 11/04/2022 8:16 PM Age: 32 years old Clinical indication: Injury or trauma; Blunt trauma (contusions or hematomas); Patient HX: Fall yesterday. Patient states she does not remember how she fell or if she hit her head. C/O head and neck pain. ; Additional info: Fall, headache TECHNIQUE: Imaging protocol: Computed tomography of the head without contrast. Radiation optimization: All CT scans at this facility use at least one of these dose optimization techniques: automated exposure control; mA and/or kV adjustment per patient size (includes targeted exams where dose is matched to clinical indication); or iterative reconstruction. Other protocol: This patient has received [address] and 0 known cardiac nuclear medicine studies in the 12 months prior to the current study. COMPARISON: CT head wo con* [id number] 11/08/2020 1:35 PM RADIATION DOSE METRICS: Total DLP (mGy-cm): 1111.28 FINDINGS: Brain: Unremarkable. No hemorrhage. No significant white matter disease. No edema. Cerebral ventricles: No ventriculomegaly. Paranasal sinuses: Mild mucoperiosteal thickening noted in the bilateral frontal, bilateral ethmoid, and bilateral maxillary sinuses. No air-fluid levels. Mastoid air cells: Unremarkable as visualized. No mastoid effusion. Bones/joints: Unremarkable. No acute fracture. Soft tissues: Unremarkable. CT/CT head wo con* [id number] IMPRESSION: 1. No acute intracranial abnormality demonstrated. This is unchanged from CT head of 11/08/2020. 2. Mild mucoperiosteal thickening noted in the bilateral frontal, bilateral ethmoid, and bilateral maxillary sinuses. This is a new finding when compared to 11/08/2020.
[2022-11-04 19:30] LABS: Basophils % 0.5 %; Eosinophils # 0.1 10^3/uL (0.0-0.8); Eosinophils % 1.2 %; Hematocrit 39.9 % (37.0-47.0); Hemoglobin 12.7 g/dL (11.5-15.3); Lymphocytes # 1.2 10^3/uL (0.8-4.8); Lymphocytes % 29.8 %; Mean Corpuscular HGB Conc 31.8 g/dL (30.0-36.0); Mean Corpuscular Hemoglobin 30.5 pg (28.0-34.0); Mean Corpuscular Volume 95.7 fl (81-99); Mean Platelet Volume 10.7 fL (7.4-10.4); Monocytes # 0.6 10^3/uL (0.2-0.9); Monocytes % 14.5 %; Neutrophils # 2.22 10^3/uL (1.8-7.7); Neutrophils % 53.8 %; Nucleated Red Blood Cells % 0 %; Platelet Count 206 10^3/cmm (130-400); Red Blood Count 4.17 10^6/uL (4.1-5.3); Red Cell Distribution Width 12.6 % (12.1-15.1); White Blood Count 4.1 10^3/uL (4.0-10.0)
--- NOTE | 2022-11-04 19:37 | ECG_ITS ---
[facility] Test Date: 2022-11-04 Pat Name: Noemi Patel Department: Room: Gender: Female Crm Analyst: : 1990 Requested By: Juan Prater Order Number: [id number] Chandana MD: Micah Taylor M.D. Measurements Intervals [place] Rate: 77 P: 46 OR: 177 QRS: 10 QRSD: 96 T: 14 QT: 356 QTc: 404 Interpretive Statements SINUS RHYTHM MODERATE VOLTAGE CRITERIA FOR LVH, CONSIDER NORMAL VARIANT [MEETS CRITERIA IN ONE OF: R(aVL), S(V1), R(V5), R(V5/V6)+S(V1)] Compared to ECG 08/20/2022 22:13:57 No significant changes Electronically Signed On 11-04-2022 21:44:31 GLASS CARRIER by Micah Taylor M.D. [id number]
[2022-11-04] MEDS: acetaminophen 1,000 MG/100 ML PIGGYBACK 400 MG IV (19:51)
[2022-11-04] MEDS: diphenhydrAMINE 50 mg/mL SDV 1mL 12.5 MG IVP (19:51)
[2022-11-04] MEDS: metoclopramide 5 mg/mL SDV 2 mL 10 MG IVP (19:51)
[2022-11-04] MEDS: sodium chloride 0.9% 1,000 ML 999 ML IV (19:51)
[2022-11-04 19:58] LABS: Add Urine Microscopic? YES; Bilirubin Urine Neg (Negative); Blood Urine Neg (Negative); Glucose Urine UA Norm (Normal); Ketones Urine 1+ (Negative); Leukocyte Esterase Urine Trace (Negative); Nitrate Urine Negative (Negative); Protein Urine Neg (Negative); Urine Appearance Hazy (CLEAR); Urine Color Yellow (Yellow); Urobilinogen Urine Neg (Negative); pH Urine 6 (5-7)
[2022-11-04 19:58] LABS: Procalcitonin 0.03 ng/mL (0-0.5); Thyroid Stimulating Hormone 1.61 uIU/mL (0.27-4.20)
[2022-11-04 20:00] VITALS: BP 123/82; PULSE 83; RESP 18; O2SAT 95
[2022-11-04 20:08] LABS: Bacteria Urine 1+ /hpf; WBC Urine RARE /hpf (0-5)
[2022-11-04 20:09] LABS: Add Urine Culture? No
[2022-11-04 20:10] LABS: Alanine Aminotransferase 22 U/L (0-33); Albumin Level 3.9 g/dL (3.5-5.2); Alkaline Phosphatase 97 U/L (35-105); Anion Gap 14.5 (5-19); Aspartate Amino Transferase 21 U/L (0-32); Blood Urea Nitrogen 16 mg/dL (6-20); C Reactive Protein 28.7 mg/L (0.0-4.9); Calcium 8.8 mg/dL (8.5-10.5); Carbon Dioxide 26 mmol/L (22-29); Chloride 101 mmol/L (98-107); Globulin 2.7 g/dL (1.3-4.6); Glomerular Filtration Rate 115.1 mL/min (90-130); Glucose 91 mg/dL (65-115); Osmolality Calculated 287 mOsm/kg (285-295); Potassium 3.5 mmol/L (3.5-5.1); Sodium 138 mmol/L (136-145); Total Bilirubin 0.3 mg/dL (0.15-1.2); Total Protein 6.6 g/dL (6.6-8.7)
[2022-11-04] MEDS: amoxicillin-clav 875-125 mg Tablet 1 TAB PO (20:58)
[2022-11-04 21:07] VITALS: BP 121/80; PULSE 77; RESP 18; O2SAT 97
[2022-11-04 21:34] LABS: Adenovirus Not Detected (NOT DETECT); Chlamydia Pneumoniae Not Detected (NOT DETECT); Coronavirus 229E,HKU1,NL63,OC4 Not Detected (NOT DETECT); Human Metapneumovirus Not Detected (NOT DETECT); Human Rhinovirus/Enterovirus Not Detected (NOT DETECT); Influenza A Not Detected (NOT DETECT); Influenza A H1 Not Detected (NOT DETECT); Influenza A H1-2009 Not Detected (NOT DETECT); Influenza A H3 Not Detected (NOT DETECT); Influenza B Not Detected (NOT DETECT); Mycoplasma Pneumoniae Not Detected (NOT DETECT); Parainfluenza Virus Type 1 Not Detected (NOT DETECT); Parainfluenza Virus Type 2 Not Detected (NOT DETECT); Parainfluenza Virus Type 3 Not Detected (NOT DETECT); Parainfluenza Virus Type 4 Not Detected (NOT DETECT); Respiratory Syncytial Virus A Not Detected (NOT DETECT); Respiratory Syncytial Virus B Not Detected (NOT DETECT); SARS-COV-2 Detected (NOT DETECT)
== END 2022-11-04 21:08 | disposition home or self-care (01) ==
PROVIDERS: Emergency Provider Emergency Medicine; PCP Nurse Practitioner Family
DX: R51.9 Headache, unspecified (principal); J01.40 Acute pansinusitis, unspecified; Z79.82 Long term (current) use of aspirin; U07.1 COVID-19; F17.210 Nicotine dependence, cigarettes, uncomplicated
CPT/HCPCS: 70450; 71045; 72125; 80053; 81001; 84145; 84443; 85025; 86140; 87635; 93005; 96365; 96367; 96375; 99285; J0131; J1200; J2765; J3475; J7030

== ENCOUNTER 2023-02-26 11:09 | Emergency (ER) | payer MEDICAID, SELFPAY ==
[2023-02-26 11:16] VITALS: BP 111/78; PULSE 80; RESP 14; TEMP 36.6; O2SAT 99; BMI 34.4
--- NOTE | 2023-02-26 11:17 | XR_ITS ---
WS: [id number] Right hand, 3 views, 02/26/2023 Clinical Data: dog bite Comparison: None. Findings: No fractures or dislocations are seen. There is minimal soft tissue deformity adjacent to the triquetrum.. The joint spaces are normal No radiopaque foreign bodies are seen. XR/XR hand RT min 3V* [id number] Impression: 1. Negative for fracture or foreign body. 2. Possible soft tissue injury medial to the triquetrum.
--- NOTE | 2023-02-26 11:20 | W.ED.ANIMALB ---
HPI - Animal Bite General: Chief Complaint: Animal Bite Stated Complaint: dog bite right hand Time Seen by Provider: 02/26/23 11:20 Source: patient Mode of arrival: ambulatory Limitations: no limitations History of Present Illness: Patient is a 32-year-old female presents to ED today for evaluation following a dog bite to her right hand. Patient states the dog is a neighbors dog and was inside playing with her dogs when Dean growled at him causing him to snap at the dog. Patient states she put her right hand in the way causing him to accidentally bite it instead. She states her tetanus is up-to-date. She states animal control picked up the animal and will quarantine for the next 10 days. complaint: animal bite Onset (ago): hour(s) Animal: dog Description of animal: household pet, immunizations unknown and appeared well Mechanism: bite Location - Extremities: Right: hand Context: playing with animal, animals fighting and provoked Associated symptoms: Reports no associated symptoms; Deny fever(s) Related Data: Patient tetanus UTD: Yes Review of Systems Const: Denies: fever(s) Musc: Reports: extremity pain; Denies: extremity swelling, joint pain, joint swelling, joint redness, joint warmth or limited range of motion Skin/Breast: Reports: other (bite mohr/puncture wounds R hand) Neuro: Denies: numbness in extremities, weakness in extremities or sensory changes [facility] ED PFSH: Medical History Anxiety Asthma Hypothyroidism SVT (supraventricular tachycardia) Family History Other CAD (coronary artery disease) Cancer Social History Smoking and tobacco status: current every day smoker (3 CIGARETTES/DAY) cigarettes Packs smoked per day: 0.25 Second hand smoke exposure: No Alcohol intake: current Alcohol intake frequency: holidays/special occasions only Alcohol type: hard liquor Substance/Drug Use: never Physical Exam Const: COMMON NORMALS: no acute distress, patient oriented x3, no limitations and alert Extremity: COMMON NORMALS: full ROM, capillary refill normal, no joint enlargement and no clubbing, cyanosis or edema GENERAL: Yes normal exam except as noted RIGHT UPPER EXTREMITY: Yes hand & digits (see diagram; full ROM of digits; no obvious tendon involvement) Right hand and digits: Yes ROM exam (normal) and Yes neurovascular exam (normal) Hand Right Back: 1. 0.75cm puncture wound 2. 0.75cm puncture wound Neuro: COMMON NORMALS: patient oriented x3, moves all extremities, no focal motor deficits and no sensory deficits noted SENSORIUM/ORIENTATION: Yes alert Skin: NARRATIVE SKIN EXAM: puncture wounds-see above Procedures Laceration Laceration 1: Site: hand Side (If applicable): right Size (cm): 0.75 Description: linear Depth: simple, single layer Local Anesthetic: lidocaine 1% Amount of anesthesia used (mL): 0.5 Pre-repair: wound explored and irrigated extensively Skin layer closed with: nylon Size (cm): 6-0 Number of sutures: 1 Technique: simple, interrupted Course Vital Signs: Vital signs: Vital Signs Temperature 97.9 F 02/26/23 11:16 Pulse Rate 80 02/26/23 11:16 Respiratory Rate 14 02/26/23 11:16 Blood Pressure 111/78 02/26/23 11:16 Pulse Oximetry 99 02/26/23 11:16 Oxygen Delivery Me thod Room Air 02/26/23 11:16 MDM - Animal Bite Medical Decision Making XR negative for fracture or foreign body. Wounds were copiously irrigated. Wound to her ulnar right wrist was left open as it was not gaping. Other puncture site was loosely closed with one suture. She was given IM antibiotics prior to discharge and will be placed on Augmentin. Strict return ED precautions given in regards to infection. We will go ahead and place referral to orthopedics so they can evaluate for any muscle/tendon/ligamentous injury (although those are not suspected currently) and make sure wounds are healing as hand dog bites are high risk infections. Her tetanus is UTD per patient. Lab Data Radiology Impressions Hand X-Ray 02/26/23 11:17 Impression: 1. Negative for fracture or foreign body. 2. Possible soft tissue injury medial to the triquetrum. Discharge Plan Discharge Patient Disposition: Home Clinical Impression: Dog bite of right hand Qualifiers: Encounter type: initial encounter Qualified Code(s): S61.451A - Open bite of right hand, initial encounter Condition: Stable Prescriptions: New amoxicillin-pot clavulanate 875-125 mg tablet 1 tab PO BID Qty: 14 0RF No Action levothyroxine 75 mcg tablet 75 mcg PO QAM amoxicillin-pot clavulanate 875-125 mg tablet 1 tab PO BID 10 Days Qty: 20 0RF promethazine-DM 6.25-15 mg/5 mL syrup 5 ml PO Q6H PRN (Reason: cough) Qty: 180 0RF ketorolac 10 mg tablet 10 mg PO Q6H PRN (Reason: pain) 5 Days Qty: 20 0RF doxycycline hyclate 100 mg capsule 100 mg PO BID 10 Days Qty: 20 0RF ergocalciferol (vitamin D2) 1,250 mcg (50,000 unit) capsule 1,250 mcg PO Q7D Rx Instructions: ON MONDAYS albuterol sulfate [ProAir HFA] 90 mcg/actuation HFA aerosol inhaler 2 puff INHALATION QID PRN (Reason: Shortness Of Breath) Vitamin Plus Low Iron 27 mg iron- 1 mg tablet 1 tab PO DAILY cyclobenzaprine 10 mg tablet 10 mg PO TID PRN (Reason: MUSCLE SPASMS) ibuprofen 800 mg Tablet 800 mg PO TID PRN (Reason: Pain) Aspir-81 81 mg Tablet,Delayed Release (Dr/Ec) 81 mg PO ONCE ondansetron 4 mg tablet,disintegrating 4 mg PO Q4H PRN (Reason: Nausea) amoxicillin-pot clavulanate 875-125 mg tablet 1 tab PO BID Qty: 20 0RF Discharge Orders: Discharge ED (Routine); Ordered 02/26/23 Ordered By: Charlene Crenshaw Referrals: Kendal Varghese APN [Primary Care Provider] - Patient Instructions: Animal Bite (ED) Activity Restrictions/Additional Instructions: You need to fill your antibiotics and start them immediately. Monitor for signs of infection such as redness, swelling, drainage, fevers, streaking up your hand or arm, or any other concerns you may have. Please seek medical reevaluation if these occur. Case management should contact you shortly to set you up with your follow-up orthopedic appointment. You have indicated your tetanus is up-to-date. Coding Level of Care Code ED Manufacturing Executive for Julia Emery
--- NOTE | 2023-02-26 12:41 | DCPLANNER ---
Addendum entered by Angie Cochran RN 03/01/23 10:57: Spoke with patient about ortho referral and the need to see her PCP. She states that she will schedule her appointment with her PCP. Addendum entered by Kathy Hernandez 02/28/23 06:13: technical sales support manager received the following message from the ortho clinic regarding follow up appointment: Attempted to contact patient - I do not have any providers that see this. She will need to follow-up with her primary care provider. I tried to contact her, but the call would not go through the 3x I attempted to call her. Original Note: technical sales support manager had message to schedule a follow up appointment for patient with ortho. technical sales support manager sent patients information to the front office staff at ortho. Patients information will be printed and reviewed. Clinic will call patient with appointment information.
[2023-02-26] MEDS: ondansetron 2 mg/ML SDV 2 mL 4 MG IM (12:50)
[2023-02-26] MEDS: cefTRIAXone 1,000 MG in water for injection-sterile 2.1 ML 100 MG IM (12:50)
== END 2023-02-26 12:57 | disposition home or self-care (01) ==
PROVIDERS: Emergency Provider Physician Assistant; PCP Nurse Practitioner Family
DX: S61.451A Open bite of right hand, initial encounter (principal); W54.0XXA Bitten by dog, initial encounter; F17.210 Nicotine dependence, cigarettes, uncomplicated
CPT/HCPCS: 12001; 73130; 96372; 99284; J0696; J2405

== ENCOUNTER 2023-03-04 22:07 | Inpatient (IN) | payer MEDICAID, SELFPAY ==
[2023-03-04 22:08] VITALS: BP 126/87; PULSE 92; RESP 18; TEMP 37.2; O2SAT 99; BMI 32.1
--- NOTE | 2023-03-04 22:20 | ED.C_ITS ---
HPI - Psych General: Chief Complaint: Psychiatric Symptoms Stated Complaint: SI Time Seen by Provider: 03/04/23 22:08 Source: patient and EMS Mode of arrival: EMS Limitations: no limitations History of Present Illness: 32-year-old female who has a history of depression states she has been having increasing suicidal thoughts. She states that she had an active plan today of kill herself by overdosing on her Ambien she brought in by EMS. Denies any worsening proving factors. Associated symptoms: Reports depression and suicidal ideation Review of Systems Const: Denies: fever(s) or chills ENMT: Denies: throat pain or dental pain Card: Denies: chest pain Resp: Denies: dyspnea GI: Denies: abdominal pain, nausea, vomiting or diarrhea : Denies: dysuria Musc: Denies: neck pain or back pain Skin/Breast: Denies: rash Neuro: Denies: headache(s) Psych: Reports: depression and suicidal ideation [facility] ED PFSH: Medical History Anxiety Asthma Hypothyroidism SVT (supraventricular tachycardia) Family History Other CAD (coronary artery disease) Cancer Social History Smoking and tobacco status: current every day smoker (3 CIGARETTES/DAY) cigarettes Packs smoked per day: 0.25 Second hand smoke exposure: No Alcohol intake: current Alcohol intake frequency: holidays/special occasions only Alcohol type: hard liquor Substance/Drug Use: never Physical Exam Const: COMMON NORMALS: no acute distress, patient oriented x3 and healthy appearing HENMT: COMMON NORMALS: normocephalic and atraumatic HEAD & SCALP: normocephalic and atraumatic Eye: COMMON NORMALS: conjunctivae normal CONJUNCTIVA: Yes conjunctivae normal Neck/C-Spine: COMMON NORMALS: full ROM and supple Chest: COMMONS NORMALS: normal inspection of the chest Resp: COMMON NORMALS: normal respiratory effort Cardio: COMMON NORMALS: regular rate, regular rhythm and No murmurs present (C ardio) RATE: regular rate RHYTHM: regular rhythm GI: INSPECTION: Yes normal to inspection Extremity: COMMON NORMALS: normal to inspection and full ROM Neuro: COMMON NORMALS: patient oriented x3, moves all extremities and no focal motor deficits Psych: COMMON NORMALS: mental status grossly normal and cooperative THOUGHT CONTENT: Yes Suicidality present Skin: COMMON NORMALS: no rashes or lesions noted and no wounds GENERAL SKIN EXAM: no rashes or lesions noted Course Vital Signs: Vital signs: Vital Signs Temperature 98.9 F 03/04/23 22:08 Pulse Rate 92 03/04/23 22:08 Respiratory Rate 18 03/04/23 22:08 Blood Pressure 126/87 03/04/23 22:08 Pulse Oximetry 99 03/04/23 22:08 Oxygen Delivery Me thod Room Air 03/04/23 22:08 MDM - Psych Medical Decision Making Patient presents for suicidal ideations patient's medically cleared placed on a 96-hour hold I spoke to Dr. Jeffery and will admit. Lab Data 03/04/23 22:26 03/04/23 22:26 Laboratory Results HCG, Qual Negative (Negative) 03/04/23 22:22 Urine Opiates Screen Negative ng/mL (Negative) 03/04/23 22:22 Ur Barbiturates Screen Negative ng/mL (Negative) 03/04/23 22:22 Ur Phencyclidine Scrn Negative ng/mL (Negative) 03/04/23 22:22 Ur Amphetamines Screen Negative ng/mL (Negative) 03/04/23 22:22 U Benzodiazepines Scrn Negative ng/mL (Negative) 03/04/23 22:22 Urine Cocaine Screen Negative ng/mL (Negative) 03/04/23 22:22 U Marijuana (THC) Screen Negative ng/mL (Negative) 03/04/23 22:22 Discharge Plan Discharge Patient Disposition: Admitted As Inpatient Admit Provider: Delroy Jeffery Clinical Impression: Suicidal ideation Condition: Stable Coding Level of Care Code ED Infection Control Preventionist for Julia Emery
--- NOTE | 2023-03-04 22:26 | ECG_ITS ---
[facility] Test Date: 2023-03-04 Pat Name: Noemi Patel Department: Room: Gender: Female Precision Assembler: : 1990 Requested By: Jonas Brownlee Order Number: [id number] Chandana MD: Kandy Alvarenga M.D. Measurements Intervals Ambrose Rate: 87 P: 54 HI: 146 QRS: 14 QRSD: 101 T: 19 QT: 333 QTc: 402 Interpretive Statements SINUS RHYTHM MINIMAL VOLTAGE CRITERIA FOR LVH, CONSIDER NORMAL VARIANT [MEETS CRITERIA IN ONE OF: R(aVL), S(V1), R(V5), R(V5/V6)+S(V1)] Compared to ECG 11/04/2022 19:37:58 No significant changes Electronically Signed On 03-05-2023 9:15:48 CDT by Kandy Alvarenga M.D. [id number]
[2023-03-04 22:34] LABS: Basophils % 0.3 %; Eosinophils # 0.1 10^3/uL (0.0-0.8); Eosinophils % 1.1 %; Hematocrit 42.7 % (37.0-47.0); Hemoglobin 14.1 g/dL (11.5-15.3); Lymphocytes # 2.6 10^3/uL (0.8-4.8); Lymphocytes % 28.5 %; Mean Corpuscular Hemoglobin 30.9 pg (28.0-34.0); Mean Corpuscular Volume 93.6 fl (81-99); Mean Platelet Volume 10.5 fL (7.4-10.4); Monocytes # 0.7 10^3/uL (0.2-0.9); Monocytes % 7.5 %; Neutrophils # 5.67 10^3/uL (1.8-7.7); Neutrophils % 62.4 %; Nucleated Red Blood Cells % 0 %; Platelet Count 262 10^3/cmm (130-400); Red Blood Count 4.56 10^6/uL (4.1-5.3); Red Cell Distribution Width 12.5 % (12.1-15.1); White Blood Count 9.1 10^3/uL (4.0-10.0)
[2023-03-04 22:38] LABS: HCG Qualitative Urine. Negative (Negative)
[2023-03-04 22:42] LABS: Amphetamines Screen Urine Negative (Negative); Barbiturates Screen Urine Negative (Negative); Benzodiazepines Screen Urine Negative (Negative); Cocaine Screen Urine Negative (Negative); Opiate Screen Urine Negative (Negative); PCP Screen Urine Negative (Negative); THC Screen Urine Negative (Negative)
[2023-03-04 23:02] LABS: Alanine Aminotransferase 28 U/L (0-33); Albumin Level 4.2 g/dL (3.5-5.2); Alkaline Phosphatase 83 U/L (35-105); Anion Gap 13.6 (5-19); Aspartate Amino Transferase 18 U/L (0-32); Blood Urea Nitrogen 15 mg/dL (6-20); Calcium 8.4 mg/dL (8.5-10.5); Carbon Dioxide 23 mmol/L (22-29); Chloride 105 mmol/L (98-107); Globulin 2.6 g/dL (1.3-4.6); Glomerular Filtration Rate 115.1 mL/min (90-130); Glucose 95 mg/dL (65-115); Osmolality Calculated 287 mOsm/kg (285-295); Potassium 3.6 mmol/L (3.5-5.1); Sodium 138 mmol/L (136-145); Thyroid Stimulating Hormone 3.26 uIU/mL (0.27-4.20); Total Bilirubin 0.2 mg/dL (0.15-1.2); Total Protein 6.8 g/dL (6.6-8.7)
[2023-03-04 23:05] LABS: Acetaminophen < 5.0 ug/mL (10-30); Alcohol Level < 10 mg/dL (0-10); Salicylate < 0.3 mg/dL (3-10)
--- NOTE | 2023-03-04 23:30 | PC.NURSE ---
96 hour hold patient rights have been read to patient & a copy of the same given to her. SERAFIN Zuñiga present at bedside at the time of reading rights.
[2023-03-05 10:52] VITALS: BP 119/71; PULSE 71; RESP 18; O2SAT 98
[2023-03-05 12:02] VITALS: BP 121/85; PULSE 79; RESP 16; TEMP 36.8; O2SAT 99
[2023-03-05 12:09] VITALS: BP 119/71; PULSE 71; RESP 18; O2SAT 98
[2023-03-05 14:00] VITALS: BP 121/85; PULSE 79; RESP 20; TEMP 36.8; O2SAT 99
[2023-03-05] MEDS: amoxicillin-clav 875-125 mg Tablet 1 TAB PO (18:07)
[2023-03-05] MEDS: zolpidem 5 mg Tablet 10 MG PO (21:44)
[2023-03-05] MEDS: escitalopram 10 mg Tablet 20 MG PO (21:44)
[2023-03-05] MEDS: acetaminophen 325 mg Tablet 650 MG PO (21:44)
[2023-03-05] MEDS: levothyroxine 75 mcg Tablet PO (21:44)
[2023-03-05 22:00] VITALS: RESP 15
[2023-03-06 06:00] VITALS: RESP 20
--- NOTE | 2023-03-06 08:46 | PC.NURSE ---
pt was found resting in bed.pt was cooperative with assessment and willing to anwser questions. pt currently denies si/hi/ah/vh. pt states that he uses he/him pronouns. pt did not want to get up for breakfast this morning. pt current needs are met.
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
[2023-03-06 14:00] VITALS: BP 134/87; PULSE 68; RESP 16; TEMP 36.9; O2SAT 98
[2023-03-06] MEDS: escitalopram 10 mg Tablet 20 MG PO (20:16)
[2023-03-06] MEDS: levothyroxine 75 mcg Tablet PO (20:16)
[2023-03-06] MEDS: zolpidem 5 mg Tablet 10 MG PO (20:16)
[2023-03-06] MEDS: cyclobenzaprine 10 mg Tablet PO (21:08)
[2023-03-06 22:00] VITALS: BP 119/71; PULSE 92; RESP 18; O2SAT 98
[2023-03-07 05:58] VITALS: RESP 15
[2023-03-07 06:00] VITALS: BMI 32.1
[2023-03-07] MEDS: neomycin-poly-bacitracin oint 28 gm 1 APPLIC TOPICAL ×2 (08:44→18:00)
[2023-03-07 14:00] VITALS: BP 121/84; PULSE 88; RESP 16; TEMP 36.4; O2SAT 99
--- NOTE | 2023-03-07 16:33 | W.PM.NPUPNS ---
Subjective NPU Subjective: Patient presented today reporting that things are challenging. We discussed where his children are and the Ethan thought to his friends status as well as from being in long heterosexual relationships to his current status. Issues with depression and trauma. We discussed the social work team being back in the morning and being able to assist with referrals. Mental Status Exam MSE Comments: This is an obese white trans male with adequate grooming but limited eye contact. Significant tattooing on exposed skin. No abnormal movements except for decreasing psychomotor retardation. More cooperative with exam in mild distress. Speech was more spontaneous and more normal rate and volume. Mood described as depressed, affect slightly subdued. Thought process organized. Thought content: Patient endorsed suicidal thoughts but denied homicidal thinking, there were no delusions reported or noted, he denied any auditory or visualizations. Attention and concentration appeared intact and memory was mostly liable but none were formally tested. He is alert and oriented x3. Insight, judgment and impulse control are limited. Vitals/I&O/Wt Last Vital Signs Temp 98.6 F 03/07/23 20:16 Pulse 82 03/07/23 20:16 Resp 18 03/07/23 20:16 BP 110/72 03/07/23 20:16 Pulse Ox 99 03/07/23 20:16 O2 Del Method Room Air 03/07/23 20:16 Weight last 48 hrs Weight 92.986 kg Data NPU 03/04/23 22:26 03/04/23 22:26 A&P Assessment and plan (1) Suicidal ideation: (2) Hypothyroidism: Qualifiers: Hypothyroidism type: unspecified Qualified Code(s): E03.9 - Hypothyroidism, unspecified (3) Asthma: (4) Left hand pain: (5) SVT (supraventricular tachycardia): (6) Anxiety: (7) Depression: (8) History of borderline personality disorder: Plan This is a 32-year-old white female with a long history of mental health issues and addiction with no recent history of treatment with significant trauma with no recent history of addiction, open to medication changes. 1. Continue current medications. Increase Lexapro to 30 mg p.o. nightly. 2. Encourage individual, group, and milieu therapy. 3. Continue q-15 minute checks for safety. 4. Encourage sober living treatment treatment after discharge at the highest level of care that she is willing to commit. Involuntary Hold Information 96 Hour Hold: 96 Hour Involuntary Admission: Yes 96 Hour Hold Ending Date: 03/11/23 96 Hour Hold Ending Time: 22:46 Attestations NPU Medical Necessity Statement*: Inpatient hospitalization is medically necessary and the clinically appropriate intervention, at this time. We will monitor medications and make changes as indicated. Likely length of stay is 2-4 days. Coding Level of Care Code Acute Code for Chg Fwd Diagnoses Suicidal ideation R45.851 Hypothyroidism E03.9 Hypothyroidism type: unspecified Asthma J45.909 Left hand pain M79.642 SVT (supraventricular tachycardia) I47.1 Anxiety F41.9 Depression F32.A History of borderline personality disorder Z86.59
[2023-03-07] MEDS: zolpidem 5 mg Tablet 10 MG PO (20:10)
[2023-03-07] MEDS: escitalopram 10 mg Tablet 20 MG PO (20:10)
[2023-03-07] MEDS: levothyroxine 75 mcg Tablet PO (20:10)
[2023-03-07 20:16] VITALS: BP 110/72; PULSE 82; RESP 18; TEMP 37; O2SAT 99
[2023-03-08] MEDS: ondansetron 4 MG Tablet PO ×2 (04:06→11:24)
--- NOTE | 2023-03-08 08:38 | P.NPUPN_ITS ---
Subjective NPU Subjective: Patient presented today reporting that he is doing little better. He reported that things are going well overall with the increase in the Lexapro but there is some lingering anxiety. We discussed the risks, benefits and alternatives of initiating propranolol 4 mg p.o. 3 times daily as needed understood and agreed to proceed as documented in this note. We discussed the discharge planning and the likelihood of discharge in the next 48 hours. Mental Status Exam MSE Comments: This is an obese white trans male with adequate grooming but limited eye contact. Significant tattooing on exposed skin. No abnormal movements. More cooperative with exam in mild distress. Speech was more spontaneous and more normal rate and volume. Mood described as a little better with maybe some anxiety occasionally, affect congruent. Thought process organized. Thought content: Patient denies suicidal or homicidal ideations, there were no delusions reported or noted, he denied any auditory or visualizations. Attention and concentration appeared intact and memory was mostly liable but none were for fouzia tested. He is alert and oriented x3. Insight, judgment and impulse control are limited, but improving. Vitals/I&O/Wt Last Vital Signs Temp 98.6 F 03/07/23 20:16 Pulse 82 03/07/23 20:16 Resp 18 03/07/23 20:16 BP 110/72 03/07/23 20:16 Pulse Ox 99 03/07/23 20:16 O2 Del Method Room Air 03/07/23 20:16 Weight last 48 hrs Weight 92.986 kg Data NPU 03/04/23 22:26 03/04/23 22:26 A&P Assessment and plan (1) Suicidal ideation: (2) Hypothyroidism: Qualifiers: Hypothyroidism type: unspecified Qualified Code(s): E03.9 - Hypothyroidism, unspecified (3) Asthma: (4) Left hand pain: (5) SVT (supraventricular tachycardia): (6) Anxiety: (7) Depression: (8) History of borderline personality disorder: Plan This is a 32-year-old white female with a long history of mental health issues and addiction with no recent history of treatment with significant trauma with no recent history of addiction, open to medication changes. 1. Continue current medications. Increased Lexapro to 30 mg p.o. nightly. Add propranolol 20 mg p.o. 3 times daily as needed. 2. Encourage individual, group, and milieu therapy. 3. Continue q-15 minute checks for safety. 4. Encourage sober living treatment treatment after discharge at the highest level of care that she is willing to commit. Involuntary Hold Information 96 Hour Hold: 96 Hour Involuntary Admission: Yes 96 Hour Hold Ending Date: 03/11/23 96 Hour Hold Ending Time: 22:46 Attestations NPU Medical Necessity Statement*: Inpatient hospitalization is medically necessary and the clinically appropriate intervention, at this time. We will monitor medications and make changes as indicated. Likely length of stay is 1-3 days. Coding Level of Care Code Acute Code for Chg Fwd Diagnoses Suicidal ideation R45.851 Hypothyroidism E03.9 Hypothyroidism type: unspecified Asthma J45.909 Left hand pain M79.642 SVT (supraventricular tachycardia) I47.1 Anxiety F41.9 Depression F32.A History of borderline personality disorder Z86.59
[2023-03-08] MEDS: ergocalciferol (vitamin D2) 50,000 Unit Capsule 50000 UNIT PO (09:24)
--- NOTE | 2023-03-08 11:24 | PC.NURSE ---
PRN ZOFRAN 4 MG GIVEN PO PER PT C/O STATED NAUSEA
[2023-03-08 14:00] VITALS: BP 129/80; PULSE 84; RESP 16; TEMP 36.9; O2SAT 97
[2023-03-08] MEDS: acetaminophen 325 mg Tablet 650 MG PO (17:18)
[2023-03-08] MEDS: zolpidem 5 mg Tablet 10 MG PO (20:10)
[2023-03-08] MEDS: levothyroxine 75 mcg Tablet PO (20:10)
[2023-03-08] MEDS: cyclobenzaprine 10 mg Tablet PO (20:10)
[2023-03-08] MEDS: escitalopram 10 mg Tablet 30 MG PO (20:10)
[2023-03-08 20:30] VITALS: BP 120/75; PULSE 78; RESP 18; TEMP 36.7; O2SAT 98
[2023-03-09] MEDS: propranolol 20 mg Tablet PO ×3 (08:44→20:13)
[2023-03-09 14:00] VITALS: BP 133/80; PULSE 93; RESP 12; TEMP 36.8; O2SAT 95
--- NOTE | 2023-03-09 14:34 | W.PM.NPUPNS ---
Subjective NPU Subjective: Patient presented today reporting that he is feeling better. Continues to have stress about making ends meet and making sure the electricity is on, but reports that he has a plan moving forward. He denies any side effects of the medications and reports that he is sleeping better and eating fine. We discussed plan for discharge in the morning. Mental Status Exam MSE Comments: This is an obese white trans male with adequate grooming but limited eye contact. Significant tattooing on exposed skin. No abnormal movements. More cooperative with exam in mild distress. Speech was more spontaneous and more normal rate and volume. Mood described as a little better with maybe some anxiety occasionally, affect congruent. Thought process organized. Thought content: Patient denies suicidal or homicidal ideations, there were no delusions reported or noted, he denied any auditory or visualizations. Attention and concentration appeared intact and memory was mostly liable but none were formally tested. He is alert and oriented x3. Insight, judgment and impulse control are limited, but improving. Vitals/I&O/Wt Last Vital Signs Temp 98.2 F 03/09/23 14:00 Pulse 93 03/09/23 14:00 Resp 12 03/09/23 14:00 BP 133/80 03/09/23 14:00 Pulse Ox 95 03/09/23 14:00 O2 Del Method Room Air 03/09/23 14:00 Data NPU 03/04/23 22:26 03/04/23 22:26 A&P Assessment and plan (1) Suicidal ideation: (2) Hypothyroidism: Qualifiers: Hypothyroidism type: unspecified Qualified Code(s): E03.9 - Hypothyroidism, unspecified (3) Asthma: (4) Left hand pain: (5) SVT (supraventricular tachycardia): (6) Anxiety: (7) Depression: (8) History of borderline personality disorder: Plan This is a 32-year-old white female with a long history of mental health issues and addiction with no recent history of treatment with significant trauma with no recent history of addiction, open to medication changes. 1. Continue current medications. Increased Lexapro to 30 mg p.o. nightly. Added propranolol 20 mg p.o. 3 times daily as needed. 2. Encourage individual, group, and milieu therapy. 3. Continue q-15 minute checks for safety. 4. Encourage sober living treatment treatment after discharge at the highest level of care that she is willing to commit. Involuntary Hold Information 96 Hour Hold: 96 Hour Involuntary Admission: Yes 96 Hour Hold Ending Date: 03/11/23 96 Hour Hold Ending Time: 22:46 Attestations NPU Medical Necessity Statement*: Inpatient hospitalization is medically necessary and the clinically appropriate intervention, at this time. We will monitor medications and make changes as indicated. Likely length of stay is 1-2 days. Coding Level of Care Code Acute Code for Chg Fwd Diagnoses Suicidal ideation R45.851 Hypothyroidism E03.9 Hypothyroidism type: unspecified Asthma J45.909 Left hand pain M79.642 SVT (supraventricular tachycardia) I47.1 Anxiety F41.9 Depression F32.A History of borderline personality disorder Z86.59
[2023-03-09] MEDS: levothyroxine 75 mcg Tablet PO (20:13)
[2023-03-09] MEDS: zolpidem 5 mg Tablet 10 MG PO (20:13)
[2023-03-09] MEDS: escitalopram 10 mg Tablet 30 MG PO (20:13)
[2023-03-09] MEDS: neomycin-poly-bacitracin oint 28 gm 1 APPLIC TOPICAL (20:14)
[2023-03-09 22:00] VITALS: BP 117/73; PULSE 68; RESP 18; TEMP 36.7; O2SAT 100
[2023-03-09] MEDS: cyclobenzaprine 10 mg Tablet PO (22:46)
[2023-03-09] MEDS: hyDROXYzine 25 mg Capsule 50 MG PO (22:49)
--- NOTE | 2023-03-09 22:52 | PC.NURSE ---
pt up to desk asking if she got both her ambien pills cause she can't sleep. pt assured that she did get both tabs. was offered and given vistaril 50mg po given for increased anxiety.
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
[2023-03-10 06:00] VITALS: RESP 16
[2023-03-10] MEDS: propranolol 20 mg Tablet PO (09:18)
[2023-03-10] MEDS: acetaminophen 325 mg Tablet 650 MG PO (09:33)
--- NOTE | 2023-03-10 10:11 | PC.NURSE ---
written discharge instruction discussed and left with client. pt stated understanding and compliance. all pt belonging returned. pt left in pov with family
== END 2023-03-10 10:19 | disposition home or self-care (01) | DRG 881 ==
LOC: ER 22:40 → ER IP 23:56 → NP 03-05 10:47
PROVIDERS: Admitting Provider Psychiatry & Neurology Psychiatry; Emergency Provider Emergency Medicine; PCP Nurse Practitioner Family; Visit Provider Psychiatry & Neurology Psychiatry
DX: F32.A Depression, unspecified (principal); R45.851 Suicidal ideations; F41.9 Anxiety disorder, unspecified; J45.909 Unspecified asthma, uncomplicated; E03.9 Hypothyroidism, unspecified; F17.210 Nicotine dependence, cigarettes, uncomplicated; F60.3 Borderline personality disorder
CPT/HCPCS: 36415; 80053; 80306; 80307; 81025; 84443; 85025; 93005; 97150; 97165; 99238; 99285; Q0162

== ENCOUNTER 2023-06-15 01:12 | Emergency (ER) | payer MEDICAID, SELFPAY ==
[2023-06-15 01:12] VITALS: BP 115/77; PULSE 71; RESP 16; TEMP 37; O2SAT 96; BMI 34.7
--- NOTE | 2023-06-15 01:20 | ED_ITS ---
HPI - Abdominal Pain General: Chief Complaint: Abdominal Pain Stated Complaint: abd pain Time Seen by Provider: 06/15/23 01:13 History of Present Illness: 33-year-old female comes in today for complaints of abdominal pain with nausea vomiting diarrhea starting yesterday morning. Patient appears nontoxic. Patient appears in no acute distress. Patient denies any frequent alcohol or marijuana use. Patient does occasionally smoke tobacco cigarettes. Patient takes routine medications for her depression, hypothyroidism, and GERD. Patient reports a history of prior episodes of nausea vomiting diarrhea which she had to be treated for low potassium and magnesium. Patient appears nontoxic. Patient appears no acute distress. Patient had taken some Zofran at home and then was given 4 of Zofran in route by EMS. Patient has had her gallbladder removed and 4 C-sections. Associated Symptoms: Reports diarrhea, nausea and vomiting; Denies constipation and fever(s) Review of Systems General: Reports: 10 or more systems reviewed and unremarkable except in HPI and below Const: Denies: fever(s) GI: Reports: abdominal pain, nausea, vomiting and diarrhea; Denies: constipation PFSH ED PFSH: Medical History Anxiety Asthma Hypothyroidism SVT (supraventricular tachycardia) Family History Other CAD (coronary artery disease) Cancer Social History Smoking and tobacco status: current every day smoker (3 CIGARETTES/DAY) cigarettes Packs smoked per day: 0.25 Second hand smoke exposure: No Alcohol intake: current Alcohol intake frequency: holidays/special occasions only Alcohol type: hard liquor Substance/Drug Use: never Physical Exam Const: COMMON NORMALS: alert HENMT: COMMON NORMALS: normocephalic HEAD & SCALP: normocephalic Neck/C-Spine: COMMON NORMALS: full ROM Resp: COMMON NORMALS: normal respiratory effort and clear to auscultation bilaterally AUSCULTATION: clear to auscultation bilaterally Cardio: COMMON NORMALS: regular rate and regular rhythm RATE: regular rate RHYTHM: regular rhythm GI: COMMON NORMALS: Soft to palpation PALPATION: Yes Soft to palpation Extremity: COMMON NORMALS: normal to inspection Neuro: SENSORIUM/ORIENTATION: Yes alert Skin: COMMON NORMALS: turgor normal GENERAL SKIN EXAM: turgor normal Course Vital Signs: Vital signs: Vital Signs Temperature 98.6 F 06/15/23 01:12 Pulse Rate 71 06/15/23 01:12 Respiratory Rate 16 06/15/23 01:12 Blood Pressure 115/77 06/15/23 01:12 Pulse Oximetry 96 06/15/23 01:12 Oxygen Delivery Me thod Room Air 06/15/23 01:12 MDM - Abdominal Pain Medical Decision Making Patient comes in today for 1 day episode of nausea vomiting and diarrhea. Patient was worried that she might be having decreased electrolytes. Patient has had problems with low potassium and magnesium in the past. Exam is unremarkable. Vital signs are normal. Differential diagnosis includes but not limited to gastroenteritis, appendicitis, dehydration, urinary tract infection. CBC was normal. CMP was unremarkable. I believe patient probably has a mild viral syndrome causing gastroenteritis. Recommended pushing plenty of fluids and using Zofran as needed for nausea and vomiting. Patient was given 1 L of IV fluids in the ER for concerns of possible early dehydration. Patient reported understanding of care plan and need for follow-up or return to the ER. Lab Data 06/15/23 01:19 06/15/23 01:19 Labs/Radiology: Laboratory Results WBC 6.98 10^3/uL (3.29-11.43) 06/15/23 01:19 RBC 4.21 10^6/uL (3.85-5.65) 06/15/23 01:19 Hgb 13.10 g/dL (11.27-16.99) 06/15/23 01:19 Hct 39.3 % (36-47) 06/15/23 01:19 MCV 93.3 fl (85-98) 06/15/23 01:19 MCH 31.1 pg (27-33) 06/15/23 01:19 MCHC 33.3 g/dL (30-55) 06/15/23 01:19 RDW 12.3 % (12.1-15.1) 06/15/23 01:19 Plt Count 268 10^3/cmm (157-399) 06/15/23 01:19 MPV 10.1 fL (7.4-10.4) 06/15/23 01:19 Neut % (Auto) 56.3 % 06/15/23 01:19 Lymph % (Auto) 30.4 % 06/15/23 01:19 [place] % (Auto) 10.9 % 06/15/23 01:19 Eos % (Auto) 1.9 % 06/15/23 01:19 Baso % (Auto) 0.4 % 06/15/23 01:19 Neut # (Auto) 3.93 10^3/uL (1.8-7.7) 06/15/23 01:19 Lymph # (Auto) 2.1 10^3/uL (0.8-4.8) 06/15/23 01:19 [place] # (Auto) 0.8 10^3/uL (0.2-0.9) 06/15/23 01:19 Eos # (Auto) 0.1 10^3/uL (0.0-0.8) 06/15/23 01:19 Baso # (Auto) 0.0 10^3/uL (0.0-0.1) 06/15/23 01:19 Nucleated RBC % (auto) 0 % 06/15/23 01:19 Nucleated RBCs # 0.0 /100WBC 06/15/23 01:19 Sodium 138 mmol/L (136-145) 06/15/23 01:19 Potassium 3.7 mmol/L (3.5-5.1) 06/15/23 01:19 Chloride 103 mmol/L (98-107) 06/15/23 01:19 Carbon Dioxide 28 mmol/L (22-29) 06/15/23 01:19 Anion Gap 10.7 (5-19) 06/15/23 01:19 BUN 18 mg/dL (6-20) 06/15/23 01:19 Creatinine 0.7 mg/dL (0.5-0.9) 06/15/23 01:19 GFR Calculation 95.8 mL/min (90-130) 06/15/23 01:19 Glucose 108 mg/dL (65-115) 06/15/23 01:19 Calculated Osmolality 288 mOsm/kg (285-295) 06/15/23 01:19 Calcium 8.4 mg/dL (8.5-10.5) L 06/15/23 01:19 Total Bilirubin 0.4 mg/dL (0.15-1.2) 06/15/23 01:19 AST 18 U/L (0-32) 06/15/23 01:19 ALT 24 U/L (0-33) 06/15/23 01:19 Alkaline Phosphatase 78 U/L (35-105) 06/15/23 01:19 Total Protein 6.5 g/dL (6.6-8.7) L 06/15/23 01:19 Albumin 4.2 g/dL (3.5-5.2) 06/15/23 01:19 Globulin 2.3 g/dL (1.3-4.6) 06/15/23 01:19 Lipase 21 U/L (13-60) 06/15/23 01:19 HCG, Qual Negative (Negative) 06/15/23 01:19 Urine Color Yellow (Yellow) 06/15/23 01:27 Urine Appearance Sl hazy (CLEAR) A 06/15/23 01:27 Urine pH 5 (5-7) 06/15/23 01:27 Ur Specific [place] 1.020 (1.005-1.030) 06/15/23 01:27 Urine Protein Trace (Negative) 06/15/23 01:27 Urine Glucose (UA) Norm (Normal) 06/15/23 01:27 Urine Ketones Negative (Negative) 06/15/23 01:27 Urine Blood Neg (Negative) 06/15/23 01:27 Urine Nitrate Negative (Negative) 06/15/23 01:27 Urine Bilirubin Neg (Negative) 06/15/23 01:27 Urine Urobilinogen Neg mg/dL (Negative) 06/15/23 01:27 Ur Leukocyte Esterase Trace (Negative) H 06/15/23 01:27 Urine RBC None /hpf (0-2) 06/15/23 01:27 Urine WBC 0-4 /hpf (0-5) H 06/15/23 01:27 Ur Squamous Epith Cells 0-4 /hpf (0-5) H 06/15/23 01:27 Calcium Oxalate Crystal 5-10 /hpf H 06/15/23 01:27 Amorphous Sediment Not Reportable 06/15/23 01:27 Urine Bacteria 1+ /hpf (NONE) H 06/15/23 01:27 Urine Mucus 3+ /hpf 06/15/23 01:27 Discharge Plan Discharge Patient Disposition: Home Clinical Impression: Gastroenteritis Condition: Stable Prescriptions: No Action levothyroxine 75 mcg tablet 75 mcg PO BEDTIME ergocalciferol (vitamin D2) 1,250 mcg (50,000 unit) capsule 1,250 mcg PO Q7D Rx Instructions: ON MONDAYS albuterol sulfate [ProAir HFA] 90 mcg/actuation HFA aerosol inhaler 2 puff INHALATION QID PRN (Reason: Shortness Of Breath) Vitamin Plus Low Iron 27 mg iron- 1 mg tablet 1 tab PO BEDTIME cyclobenzaprine 10 mg tablet 10 mg PO TID PRN (Reason: Muscle Spasm) ibuprofen 800 mg Tablet 800 mg PO TID PRN (Reason: Pain) ondansetron 4 mg tablet,disintegrating 4 mg PO Q4H PRN (Reason: Nausea) pantoprazole 40 mg tablet,delayed release (DR/EC) 40 mg PO BID PRN (Reason: Acid Reflux) lorazepam 1 mg tablet 0.5 - 1 mg PO QPM PRN (Reason: Anxiety) zolpidem 10 mg tablet 10 mg PO BEDTIME propranolol 20 mg Tablet 20 mg PO TID 30 Days Qty: 90 1RF hydroxyzine pamoate 25 mg Capsule 50 mg PO Q6H PRN (Reason: Anxiety) 30 Days Qty: 120 1RF escitalopram oxalate 10 mg Tablet 30 mg PO BEDTIME 30 Days Qty: 90 1RF Discharge Orders: Discharge ED (Routine); Ordered 06/15/23 Ordered By: Navin Jimenez Referrals: Kendal Varghese APN [Primary Care Provider] - Discharge Diet: Advance as tolerated Discharge Activity: Increase activity as tolerated Patient Instructions: Gastroenteritis (ED) Activity Restrictions/Additional Instructions: Make sure to drink plenty of water and fluids. Drinking electrolyte solution such as Gatorade or Pedialyte to help maintain electrolytes especially with diarrhea. Use Zofran as needed for nausea and vomiting. Follow-up with primary care for further instructions. Return to ED for worsening symptoms such as no urine output within 8 to 12 hours, worsening abdominal pain, blood in vomit or stool. Coding Level of Care Code ED Vp & General Counsel for Julia Emery
[2023-06-15 01:23] LABS: Basophils % 0.4 %; Eosinophils # 0.1 10^3/uL (0.0-0.8); Eosinophils % 1.9 %; Hematocrit 39.3 % (36-47); Lymphocytes # 2.1 10^3/uL (0.8-4.8); Lymphocytes % 30.4 %; Mean Corpuscular HGB Conc 33.3 g/dL (30-55); Mean Corpuscular Hemoglobin 31.1 pg (27-33); Mean Corpuscular Volume 93.3 fl (85-98); Mean Platelet Volume 10.1 fL (7.4-10.4); Monocytes # 0.8 10^3/uL (0.2-0.9); Monocytes % 10.9 %; Neutrophils # 3.93 10^3/uL (1.8-7.7); Neutrophils % 56.3 %; Nucleated Red Blood Cells % 0 %; Platelet Count 268 10^3/cmm (157-399); Red Blood Count 4.21 10^6/uL (3.85-5.65); Red Cell Distribution Width 12.3 % (12.1-15.1); White Blood Count 6.98 10^3/uL (3.29-11.43)
[2023-06-15] MEDS: lactated ringers 1,000 ML 999 ML IV (01:25)
[2023-06-15 01:40] LABS: Add Urine Microscopic? YES; Bacteria Urine 1+ /hpf; Bilirubin Urine Neg (Negative); Blood Urine Neg (Negative); Glucose Urine UA Norm (Normal); Ketones Urine Negative (Negative); Leukocyte Esterase Urine Trace (Negative); Mucus Urine 3+ /hpf; Nitrate Urine Negative (Negative); Protein Urine Trace (Negative); Squamous Epithelial Cell Urine 0-4 /hpf (0-5); Urine Appearance SL Hazy (CLEAR); Urine Color Yellow (Yellow); Urobilinogen Urine Neg (Negative); WBC Urine 0-4 /hpf (0-5); pH Urine 5 (5-7)
[2023-06-15 01:41] LABS: Add Urine Culture? No
[2023-06-15 01:43] LABS: HCG, Serum Qual Negative (Negative)
[2023-06-15 01:51] LABS: Alanine Aminotransferase 24 U/L (0-33); Albumin Level 4.2 g/dL (3.5-5.2); Alkaline Phosphatase 78 U/L (35-105); Anion Gap 10.7 (5-19); Aspartate Amino Transferase 18 U/L (0-32); Blood Urea Nitrogen 18 mg/dL (6-20); Calcium 8.4 mg/dL (8.5-10.5); Carbon Dioxide 28 mmol/L (22-29); Chloride 103 mmol/L (98-107); Globulin 2.3 g/dL (1.3-4.6); Glomerular Filtration Rate 95.8 mL/min (90-130); Glucose 108 mg/dL (65-115); Lipase 21 U/L (13-60); Osmolality Calculated 288 mOsm/kg (285-295); Potassium 3.7 mmol/L (3.5-5.1); Sodium 138 mmol/L (136-145); Total Bilirubin 0.4 mg/dL (0.15-1.2); Total Protein 6.5 g/dL (6.6-8.7)
[2023-06-15 03:03] VITALS: BP 103/66; PULSE 76; RESP 18; O2SAT 95
== END 2023-06-15 03:07 | disposition home or self-care (01) ==
PROVIDERS: Emergency Provider Nurse Practitioner Family; PCP Nurse Practitioner Family
DX: K52.9 Noninfective gastroenteritis and colitis, unspecified (principal); F17.210 Nicotine dependence, cigarettes, uncomplicated
CPT/HCPCS: 80053; 81001; 83690; 84703; 85025; 96360; 99284; J7120

== ENCOUNTER 2023-07-10 11:28 | Emergency (ER) | payer MEDICAID, SELFPAY ==
[2023-07-10 11:43] VITALS: BP 112/73; PULSE 71; RESP 15; TEMP 36.8; O2SAT 99
--- NOTE | 2023-07-10 12:57 | W.ED.DENTAL ---
HPI - Dental/Oral General: Chief complaint: Dental/Oral Stated complaint: POST OP JAW PAIN Time Seen by Provider: 07/10/23 12:49 Source: patient Mode of arrival: ambulatory History of Present Illness: 33-year-old female presents emergency room complaining of left-sided dental pain began after she had a tooth extraction. She is advised that I did not use Tylenol or ibuprofen. States pain is still persistent no fever sweats or chills. No significant swelling. MD Complaint: tooth pain Teeth map: 1. Onset (ago): day(s) Duration: constant Severity: moderate Exacerbating factors: chewing Associated symptoms: Reports ear or mastoid pain; Denies fever(s), gum swelling, odynophagia, sore throat or tongue swelling Review of Systems Const: Denies: fever(s) or chills ENMT: Reports: dental pain and ear or mastoid pain; Denies: throat pain, odynophagia, swelling of lips/tongue or bleeding gums All/Imm: Denies: tongue swelling PFSH ED PFSH: Medical History Anxiety Asthma Hypothyroidism SVT (supraventricular tachycardia) Family History Other CAD (coronary artery disease) Cancer Social History Smoking and tobacco status: current every day smoker (3 CIGARETTES/DAY) cigarettes Packs smoked per day: 0.25 Second hand smoke exposure: No Alcohol intake: current Alcohol intake frequency: holidays/special occasions only Alcohol type: hard liquor Substance/Drug Use: never Physical Exam Const: GENERAL APPEARANCE: cooperative and comfortable ORIENTATION/CONSCIOUSNESS: Yes awake, Yes oriented to person, Yes oriented to place and Yes oriented to time HENMT: COMMON NORMALS: normocephalic, atraumatic and hearing grossly normal bilaterally HEAD & SCALP: normocephalic and atraumatic OTHER: Left posterior molar extracted there is a mucousy eschar at the base no swelling of the gingiva no active bleeding no palpable lymph nodes Resp: COMMON NORMALS: normal respiratory effort, No retractions, No use of accessory muscles and clear to auscultation bilaterally AUSCULTATION: clear to auscultation bilaterally Cardio: COMMON NORMALS: regular rate, regular rhythm and No murmurs present (Cardio) RATE: regular rate RHYTHM: regular rhythm Neuro: SENSORIUM/ORIENTATION: Yes oriented to person, Yes oriented to place and Yes oriented to time Course Vital Signs: Vital signs: Vital Signs Temperature 98.2 F 07/10/23 11:43 Pulse Rate 71 07/10/23 11:43 Respiratory Rate 15 07/10/23 11:43 Blood Pressure 112/73 07/10/23 11:43 Pulse Oximetry 99 07/10/23 11:43 Oxygen Delivery Me thod Room Air 07/10/23 11:43 MDM - Dental/Oral Medical Decision Making Given Toradol in the ER discharged home with diclofenac and tramadol. Follow-up with dentist soon as she is able. Can also use topical clove oil on a cottonball in the affected area which can be an effective topical anesthetic. No radiology studies performed this visit Discharge Plan Discharge Patient Disposition: Home Clinical Impression: Pain, dental Condition: Stable Prescriptions: New diclofenac sodium 75 mg tablet,delayed release (DR/EC) 75 mg PO Q12H PRN (Reason: pain) Qty: 20 0RF tramadol 50 mg tablet 50 mg PO Q6H PRN (Reason: pain) Qty: 7 0RF No Action levothyroxine 75 mcg tablet 75 mcg PO BEDTIME ergocalciferol (vitamin D2) 1,250 mcg (50,000 unit) capsule 1,250 mcg PO Q7D Rx Instructions: ON MONDAYS albuterol sulfate [ProAir HFA] 90 mcg/actuation HFA aerosol inhaler 2 puff INHALATION QID PRN (Reason: Shortness Of Breath) Vitamin Plus Low Iron 27 mg iron- 1 mg tablet 1 tab PO BEDTIME cyclobenzaprine 10 mg tablet 10 mg PO TID PRN (Reason: Muscle Spasm) ibuprofen 800 mg Tablet 800 mg PO TID PRN (Reason: Pain) ondansetron 4 mg tablet,disintegrating 4 mg PO Q4H PRN (Reason: Nausea) pantoprazole 40 mg tablet,delayed release (DR/EC) 40 mg PO BID PRN (Reason: Acid Reflux) lorazepam 1 mg tablet 0.5 - 1 mg PO QPM PRN (Reason: Anxiety) zolpidem 10 mg tablet 10 mg PO BEDTIME propranolol 20 mg Tablet 20 mg PO TID 30 Days Qty: 90 1RF hydroxyzine pamoate 25 mg Capsule 50 mg PO Q6H PRN (Reason: Anxiety) 30 Days Qty: 120 1RF escitalopram oxalate 10 mg Tablet 30 mg PO BEDTIME 30 Days Qty: 90 1RF Discharge Orders: Discharge ED (Routine); Ordered 07/10/23 Ordered By: Shen Sinclair Referrals: Varghese,Kendal, OFFICE SERVICES SPECIALIST [Primary Care Provider] - Discharge Diet: GI Soft Discharge Activity: Increase activity as tolerated Patient Instructions: Opioid Safety, Pain Management Activity Restrictions/Additional Instructions: Follow-up with your dentist as soon as you are able. Avoid foods and drinks at extremes of temperature Coding Level of Care Code ED Corporate Administrative Assistant for Julia Emery
[2023-07-10] MEDS: ketorolac 30 mg/mL INJ 60 MG IM (13:08)
[2023-07-10 13:58] VITALS: PULSE 77; RESP 16; O2SAT 99
[2023-07-10 13:59] VITALS: PULSE 77; RESP 16; O2SAT 99
== END 2023-07-10 14:00 | disposition home or self-care (01) ==
PROVIDERS: Emergency Provider Family Medicine; PCP Nurse Practitioner Family
DX: K08.89 Other specified disorders of teeth and supporting structures (principal); F17.210 Nicotine dependence, cigarettes, uncomplicated
CPT/HCPCS: 96372; 99284; J1885

== ENCOUNTER 2023-07-12 23:13 | Emergency (ER) | payer MEDICAID, SELFPAY ==
[2023-07-12 23:15] VITALS: BP 116/70; PULSE 78; RESP 16; TEMP 36.6; O2SAT 100; BMI 34.4
--- NOTE | 2023-07-12 23:18 | W.ED.GENADLT ---
HPI - General Adult General: Chief complaint: General Medical Stated complaint: weakness, dizziness Time Seen by Provider: 07/12/23 23:18 History of Present Illness: 33-year-old female comes in today for concerns of weakness, dental pain, and blood in emesis. Patient was seen for a dental infection x2. Patient was first placed on some tramadol and diclofenac for complaints of pain to her jaw. Patient then was started on some antibiotics and given some lidocaine viscous yesterday for concerns of a secondary infection. Patient was not able to get the antibiotic or lidocaine viscous today. Patient did have 2 or 3 episodes of dyspepsia and emesis with noticeable blood in it. Patient appears nontoxic. Patient appears no pain at rest. Patient does admit to taking diclofenac and tramadol today. Review of Systems General: Reports: 10 or more systems reviewed and unremarkable except in HPI and below ENMT: Reports: dental pain [facility] ED PFSH: Medical History Anxiety Asthma Hypothyroidism SVT (supraventricular tachycardia) Family History Other CAD (coronary artery disease) Cancer Social History Smoking and tobacco status: current every day smoker (3 CIGARETTES/DAY) cigarettes Packs smoked per day: 0.25 Second hand smoke exposure: No Alcohol intake: current Alcohol intake frequency: holidays/special occasions only Alcohol type: hard liquor Substance/Drug Use: never Physical Exam Const: COMMON NORMALS: alert HENMT: COMMON NORMALS: normocephalic HEAD & SCALP: normocephalic TEETH & GINGIVA IMAGES: 1. Decayed tooth to the gumline with surrounding erythema and swelling of the gingival tissue Neck/C-Spine: COMMON NORMALS: full ROM Resp: COMMON NORMALS: normal respiratory effort Cardio: COMMON NORMALS: regular rate RATE: regular rate Back/Pelvis: COMMON NORMALS: thoracic and lumbar spine normal to inspection Extremity: COMMON NORMALS: no pedal edema Neuro: SENSORIUM/ORIENTATION: Yes alert Skin: COMMON NORMALS: turgor normal GENERAL SKIN EXAM: turgor normal Course Vital Signs: Vital signs: Vital Signs Temperature 97.8 F 07/12/23 23:15 Pulse Rate 78 07/12/23 23:15 Respiratory Rate 16 07/12/23 23:15 Blood Pressure 116/70 07/12/23 23:15 Pulse Oximetry 100 07/12/23 23:15 Oxygen Delivery Me thod Room Air 07/12/23 23:15 MDM - General Adult Medical Decision Making 33-year-old female comes in today with complaints of pain and discomfort to the left lower jaw, feeling of malaise, abdominal distention, and emesis with blood in it. Patient appears nontoxic. Respirations are even lungs are clear to auscultation. Abdomen soft nontender. Bowel sounds are active. Patient does have some swelling of the gingival tissue around a decayed tooth to the third molar of the left lower jaw. Differential diagnosis includes adverse drug effect, gastritis, dental infection, anemia, malingering. CBC was unremarkable. I believe patient probably had a adverse drug effect to the diclofenac causing some gastritis and bleeding with emesis. No significant amount of blood is noted to be lost. Patient had not been taking her pantoprazole either for her gastritis. Recommend patient start back up on the pantoprazole stop the diclofenac. Patient was given some viscous lidocaine to help with her dental pain. Patient was recommended to follow-up with dentist for definitive care. Patient was recommended to have prescription for antibiotic filled and continue it. Patient reported understanding and agreed to plan. Lab Data 07/12/23 00:05 Laboratory Results WBC 4.82 10^3/uL (3.29-11.43) 07/12/23 00:05 RBC 3.93 10^6/uL (3.85-5.65) 07/12/23 00:05 Hgb 12.20 g/dL (11.27-16.99) 07/12/23 00:05 Hct 36.3 % (36-47) 07/12/23 00:05 MCV 92.4 fl (85-98) 07/12/23 00:05 MCH 31.0 pg (27-33) 07/12/23 00:05 MCHC 33.6 g/dL (30-55) 07/12/23 00:05 RDW 12.3 % (12.1-15.1) 07/12/23 00:05 Plt Count 240 10^3/cmm (157-399) 07/12/23 00:05 MPV 9.6 fL (7.4-10.4) 07/12/23 00:05 Neut % (Auto) 51.2 % 07/12/23 00:05 Lymph % (Auto) 34.9 % 07/12/23 00:05 [place] % (Auto) 11.4 % 07/12/23 00:05 Eos % (Auto) 1.9 % 07/12/23 00:05 Baso % (Auto) 0.4 % 07/12/23 00:05 Neut # (Auto) 2.47 10^3/uL (1.8-7.7) 07/12/23 00:05 Lymph # (Auto) 1.7 10^3/uL (0.8-4.8) 07/12/23 00:05 [place] # (Auto) 0.6 10^3/uL (0.2-0.9) 07/12/23 00:05 Eos # (Auto) 0.1 10^3/uL (0.0-0.8) 07/12/23 00:05 Baso # (Auto) 0.0 10^3/uL (0.0-0.1) 07/12/23 00:05 Nucleated RBC % (auto) 0 % 07/12/23 00:05 Nucleated RBCs # 0.0 /100WBC 07/12/23 00:05 No radiology studies performed this visit Discharge Plan Discharge Patient Disposition: Home Clinical Impression: Pain, dental, Dental abscess Adverse drug effect Qualifiers: Encounter type: initial encounter Qualified Code(s): T50.905A - Adverse effect of unspecified drugs, medicaments and biological substances, initial encounter Gastritis Qualifiers: Gastritis type: superficial Chronicity: acute Gastritis bleeding: with bleeding Qualified Code(s): K29.01 - Acute gastritis with bleeding Condition: Stable Prescriptions: New Lidocaine Viscous 2 % solution 5 ml mucous membrane Q3H PRN (Reason: pain) Qty: 100 0RF No Action levothyroxine 75 mcg tablet 75 mcg PO BEDTIME ergocalciferol (vitamin D2) 1,250 mcg (50,000 unit) capsule 1,250 mcg PO Q7D Rx Instructions: ON MONDAYS albuterol sulfate [ProAir HFA] 90 mcg/actuation HFA aerosol inhaler 2 puff INHALATION QID PRN (Reason: Shortness Of Breath) Vitamin Plus Low Iron 27 mg iron- 1 mg tablet 1 tab PO BEDTIME cyclobenzaprine 10 mg tablet 10 mg PO TID PRN (Reason: Muscle Spasm) ibuprofen 800 mg Tablet 800 mg PO TID PRN (Reason: Pain) ondansetron 4 mg tablet,disintegrating 4 mg PO Q4H PRN (Reason: Nausea) pantoprazole 40 mg tablet,delayed release (DR/EC) 40 mg PO BID PRN (Reason: Acid Reflux) lorazepam 1 mg tablet 0.5 - 1 mg PO QPM PRN (Reason: Anxiety) zolpidem 10 mg tablet 10 mg PO BEDTIME propranolol 20 mg Tablet 20 mg PO TID 30 Days Qty: 90 1RF hydroxyzine pamoate 25 mg Capsule 50 mg PO Q6H PRN (Reason: Anxiety) 30 Days Qty: 120 1RF escitalopram oxalate 10 mg Tablet 30 mg PO BEDTIME 30 Days Qty: 90 1RF diclofenac sodium 75 mg tablet,delayed release (DR/EC) 75 mg PO Q12H PRN (Reason: pain) Qty: 20 0RF tramadol 50 mg tablet 50 mg PO Q6H PRN (Reason: pain) Qty: 7 0RF ondansetron HCl 4 mg tablet 4 mg PO Q6H PRN (Reason: nausea and vomiting) Qty: 20 0RF Discharge Orders: Discharge ED (Routine); Ordered 07/13/23 Ordered By: Navin Jimenez Referrals: Kendal Varghese APN [Primary Care Provider] - Patient Instructions: Toothache (ED) Activity Restrictions/Additional Instructions: Stop diclofenac. You may continue other medication as needed for pain. Use lidocaine viscous to the mucous membrane 5 mL every 3 hours as needed for pain and discomfort. Ice or heat otherwise for pain. Follow-up with dentist for definitive care. Continue with your pantoprazole as directed. Return to ED for worsening symptoms or new concerns. Coding Level of Care Code ED Power Shovel Operator for Julia Emery
[2023-07-12] MEDS: cefTRIAXone 1,000 MG in sodium chloride 0.9% (plus) 50 ML 100 MG IV (23:53)
[2023-07-12] MEDS: lidocaine 2% viscous 15 mL UDC 10 ML MUCOUS MEM (23:53)
[2023-07-12] MEDS: pantoprazole 40 mg SDV 80 MG IVP (23:54)
[2023-07-12] MEDS: lactated ringers 500 ML 999 ML IV (23:54)
[2023-07-13 00:12] LABS: Basophils % 0.4 %; Eosinophils # 0.1 10^3/uL (0.0-0.8); Eosinophils % 1.9 %; Hematocrit 36.3 % (36-47); Lymphocytes # 1.7 10^3/uL (0.8-4.8); Lymphocytes % 34.9 %; Mean Corpuscular HGB Conc 33.6 g/dL (30-55); Mean Corpuscular Volume 92.4 fl (85-98); Mean Platelet Volume 9.6 fL (7.4-10.4); Monocytes # 0.6 10^3/uL (0.2-0.9); Monocytes % 11.4 %; Neutrophils # 2.47 10^3/uL (1.8-7.7); Neutrophils % 51.2 %; Nucleated Red Blood Cells % 0 %; Platelet Count 240 10^3/cmm (157-399); Red Blood Count 3.93 10^6/uL (3.85-5.65); Red Cell Distribution Width 12.3 % (12.1-15.1); White Blood Count 4.82 10^3/uL (3.29-11.43)
[2023-07-13 00:46] VITALS: BP 116/70; PULSE 78; RESP 16; TEMP 36.6; O2SAT 100
[2023-07-13] MEDS: lidocaine 2% viscous 15 mL UDC 5 ML MUCOUS MEM (00:46)
== END 2023-07-13 00:48 | disposition home or self-care (01) ==
PROVIDERS: Emergency Provider Nurse Practitioner Family; PCP Nurse Practitioner Family
DX: K04.7 Periapical abscess without sinus (principal); K29.01 Acute gastritis with bleeding; T50.905A Adverse effect of unspecified drugs, medicaments and biological substances, initial encounter; F17.210 Nicotine dependence, cigarettes, uncomplicated
CPT/HCPCS: 36415; 85025; 96365; 96375; 99284; C9113; J0696; J7120

== ENCOUNTER 2023-09-20 10:42 | Emergency (ER) | payer MEDICAID, SELFPAY ==
--- NOTE | 2023-09-20 10:57 | XR_ITS ---
WS: [id number] Exam: XR chest 1V portable [id number] Date/Time of Exam: 09/20/2023 10:57 AM Reason For Exam: cough Comparison 11/04/2022. Findings: The lungs are clear and fully expanded. Costophrenic angles are sharp. No infiltrates. Bronchovascula r relief appears normal. Cardiac silhouette is unremarkable. Bony elements are intact. IMPRESSION: Unremarkable chest radiograph.
[2023-09-20 11:11] VITALS: BP 104/64; PULSE 89; RESP 18; TEMP 36.6; O2SAT 99; BMI 34.7
--- NOTE | 2023-09-20 12:58 | W.ED.GENADLT ---
HPI - General Adult General: Chief complaint: Extremity Problem,Nontraumatic Stated complaint: cough, backpain, sore throat Time Seen by Provider: 09/20/23 12:51 Source: patient Mode of arrival: ambulatory Limitations: no limitations History of Present Illness: Patient is a 33-year-old female here with multiple complaints. She tells me she has had some intermittent paresthesias to her left forearm. She states she has a history of SVT and wants to make sure she is not having a heart attack or stroke. Patient has absolutely no complaints of chest pain, shortness of breath, or difficulty breathing. She has no acute focal neurologic deficits. She also has a complaint of a dry cough over the past several days. She feels like her throat and mouth have a cotton ball in it . She is having some mild lower back discomfort that she feels might be from coughing. She has no radicular symptoms. No abdominal pain. She has no flank pain or urinary complaints. Onset (ago): day(s) Severity: mild Relieving factors: none Exacerbating factors: none Associated symptoms: Deny chest pain, confusion, dyspnea, headache(s), malaise, nausea, rash, palpitations, syncope or vomiting Treatments prior to arrival: none Review of Systems Const: Denies: fever(s), chills, body aches, fatigue or malaise Eyes: Denies: change in vision or blurry vision ENMT: Reports: throat pain (report dry throat/mouth); Denies: odynophagia, hoarseness, mouth pain, swelling of lips/tongue, dental pain, ear or mastoid pain, nasal discharge, nasal congestion or sinus pain Card: Denies: chest pain, palpitations, irregular heart rhythm, lightheadedness, syncope or dyspnea on exertion Resp: Reports: non-productive cough; Denies: dyspnea, productive cough, wheezing, stridor, pain on inspiration, change in phlegm color, hemoptysis or chest congestion GI: Denies: abdominal pain, nausea, vomiting, heartburn or diarrhea : Denies: flank pain, difficulty voiding, dysuria, urinary frequency, urinary urgency or urinary hesitancy Musc: Reports: back pain; Denies: neck pain, extremity pain, extremity swelling or joint pain Skin/Breast: Denies: rash Neuro: Reports: sensory changes (L forearm); Denies: headache(s), numbness in extremities, weakness in extremities, difficulty walking or confusion PFSH ED PFSH: Medical History SVT (supraventricular tachycardia) Hypothyroidism Asthma Anxiety Family History Other CAD (coronary artery disease) Cancer Social History Smoking and tobacco/nicotine status: current every day tobacco/nicotine user (3 CIGARETTES/DAY) cigarettes Packs smoked per day: 0.25 Second hand smoke exposure: No Alcohol intake: current Alcohol intake frequency: holidays/special occasions only Alcohol type: hard liquor Substance/Drug Use: never Physical Exam Const: COMMON NORMALS: no acute distress, patient oriented x3, no limitations, alert and well nourished GENERAL APPEARANCE: cooperative NUTRITIONAL APPEARANCE: obese ORIENTATION/CONSCIOUSNESS: Yes awake, Yes oriented to person, Yes oriented to place and Yes oriented to time HENMT: COMMON NORMALS: normocephalic, atraumatic, moist oral mucous membranes and oropharynx normal HEAD & SCALP: normal to inspection, normocephalic and atraumatic FACE & SINUS: normal facial exam MOUTH: Normal oral and palatal mucosa present and lip normal THROAT: posterior oropharynx normal and tonsils normal Eye: GENERAL EYE: appearance normal, both eyes and all related structures Neck/C-Spine: COMMON NORMALS: full ROM, no lymphadenopathy, supple and no meningeal signs Chest: COMMONS NORMALS: normal inspection of the chest Resp: COMMON NORMALS: normal respiratory effort and clear to auscultation bilaterally AUSCULTATION: clear to auscultation bilaterally Cardio: COMMON NORMALS: regular rate and regular rhythm RATE: regular rate RHYTHM: regular rhythm : COMMON NORMALS: Yes no CVA tenderness BLADDER/KIDNEY EXAM: Yes no CVA tenderness Back/Pelvis: COMMON NORMALS: no CVA tenderness, thoracic and lumbar spine normal to inspection and no thoracic nor lumbar tenderness THORACIC SPINE/UPPER BACK: No thoracic spinal tenderness and No paraspinal muscle tenderness LUMBAR SPINE/LOWER BACK: Yes lumbar ROM normal, No lumbar spinal tenderness, Yes paraspinal muscle tenderness, No paraspinal muscle spasm and Yes straight leg raise negative bilaterally Extremity: COMMON NORMALS: normal to inspection, full ROM, capillary refill normal, no joint enlargement, no clubbing, cyanosis or edema, no calf tenderness and no pedal edema NARRATIVE EXTREMITY EXAM: strength 5/5 to bilateral UEs GENERAL: Yes normal exam except as noted Neuro: COMMON NORMALS: patient oriented x3, moves all extremities, no focal motor deficits, no sensory deficits noted and gait normal SENSORIUM/ORIENTATION: Yes alert, Yes oriented to person, Yes oriented to place and Yes oriented to time MENINGEAL SIGNS: Yes no meningeal signs MOTOR EXAM: 5/5 motor strength present throughout Skin: COMMON NORMALS: no rashes or lesions noted GENERAL SKIN EXAM: no rashes or lesions noted Course Vital Signs: Vital signs: Vital Signs Temperature 97.9 F 09/20/23 11:11 Pulse Rate 89 09/20/23 11:11 Respiratory Rate 18 09/20/23 11:11 Blood Pressure 104/64 09/20/23 11:11 Pulse Oximetry 99 09/20/23 11:11 Oxygen Delivery Me thod Room Air 09/20/23 11:11 [facility] - General Adult Medical Decision Making Patient appears in no acute distress. She has no acute neurologic focal defects. No chest pain/SOB. Her symptoms are non-emergent at this time. CXR obtained and negative. I have no concern for any emergent process at this time. She is stable for discharge with return precautions. Medical Records I reviewed the patient's medical records. All radiology interpretation(s) finalized by discharge Discharge Plan Discharge Patient Disposition: Home Clinical Impression: Non-productive cough Back pain Qualifiers: Back pain location: low back pain Chronicity: acute Back pain laterality: unspecified Sciatica presence: without sciatica Qualified Code(s): M54.50 - Low back pain, unspecified Condition: Stable Prescriptions: No Action levothyroxine 75 mcg tablet 75 mcg PO BEDTIME ergocalciferol (vitamin D2) 1,250 mcg (50,000 unit) capsule 1,250 mcg PO Q7D Rx Instructions: ON MONDAYS albuterol sulfate [ProAir HFA] 90 mcg/actuation HFA aerosol inhaler 2 puff INHALATION QID PRN (Reason: Shortness Of Breath) Vitamin Plus Low Iron 27 mg iron- 1 mg tablet 1 tab PO BEDTIME cyclobenzaprine 10 mg tablet 10 mg PO TID PRN (Reason: Muscle Spasm) ibuprofen 800 mg Tablet 800 mg PO TID PRN (Reason: Pain) ondansetron 4 mg tablet,disintegrating 4 mg PO Q4H PRN (Reason: Nausea) pantoprazole 40 mg tablet,delayed release (DR/EC) 40 mg PO BID PRN (Reason: Acid Reflux) lorazepam 1 mg tablet 0.5 - 1 mg PO QPM PRN (Reason: Anxiety) zolpidem 10 mg tablet 10 mg PO BEDTIME propranolol 20 mg Tablet 20 mg PO TID 30 Days Qty: 90 1RF hydroxyzine pamoate 25 mg Capsule 50 mg PO Q6H PRN (Reason: Anxiety) 30 Days Qty: 120 1RF escitalopram oxalate 10 mg Tablet 30 mg PO BEDTIME 30 Days Qty: 90 1RF diclofenac sodium 75 mg tablet,delayed release (DR/EC) 75 mg PO Q12H PRN (Reason: pain) Qty: 20 0RF tramadol 50 mg tablet 50 mg PO Q6H PRN (Reason: pain) Qty: 7 0RF ondansetron HCl 4 mg tablet 4 mg PO Q6H PRN (Reason: nausea and vomiting) Qty: 20 0RF Lidocaine Viscous 2 % solution 5 ml mucous membrane Q3H PRN (Reason: pain) Qty: 100 0RF Discharge Orders: Discharge ED (Routine); Ordered 09/20/23 Ordered By: Charlene Crenshaw Referrals: Abimael,GAVIOTA Edmonds [Primary Care Provider] - Coding Level of Care Code ED Head Of Human Resources for Julia Emery
== END 2023-09-20 13:15 | disposition home or self-care (01) ==
PROVIDERS: Emergency Provider Physician Assistant; PCP Nurse Practitioner Family
DX: R05.9 Cough, unspecified (principal); M54.50 Low back pain, unspecified; F17.210 Nicotine dependence, cigarettes, uncomplicated
CPT/HCPCS: 71045; 99283

== ENCOUNTER 2024-11-24 19:54 | Emergency (ER) | payer MEDICAID, SELFPAY ==
[2024-11-24 19:56] VITALS: BP 109/71; PULSE 70; RESP 18; TEMP 36.6; O2SAT 100; BMI 36.0
--- NOTE | 2024-11-24 20:13 | XRR_ITS ---
PROCEDURE INFORMATION: Exam: XR Right Foot Exam date and time: 11/24/2024 9:14 PM Age: 34 years old Clinical indication: Injury or trauma; Other: Blunt trauma; Right; Patient caught foot in doorway. Contusion with small lac across dorsal surface along 3-5th metatarsal area. TECHNIQUE: Imaging protocol: Radiologic exam of the right foot. Views: 3 or more views. COMPARISON: CR XR ankle RT min 3V* [id number] 10/26/2018 3:14 PM FINDINGS: Bones/joints: No visualized fracture or dislocation. Soft tissues: Focal soft tissue swelling over the dorsal aspect of the metatarsal phalangeal joints on the lateral view. Negative for radiopaque foreign body. XR/XR foot RT min 3V* [id number] IMPRESSION: No visualized fracture or dislocation.
--- NOTE | 2024-11-24 21:15 | W.ED.LOWEXIN ---
HPI - Extremity Injury (Lower) General: Chief Complaint: Extremity Injury, Lower Stated Complaint: foot maybe fractured/flu fever/headache Time Seen by Provider: 11/24/24 20:37 Source: patient Mode of arrival: wheelchair Limitations: no limitations History of Present Illness: Patient is a 34-year-old female presents to ED today with a complaint of a right foot injury that she sustained yesterday after a door accidentally fell onto or smashed onto her foot. Has noticed some bruising to the dorsal foot. MD complaint: foot injury Onset (ago): day(s) (yesterday) Injury: Right: foot Place: home Severity: moderate Relieving factors: nothing Exacerbating factors: weight bearing, movement and palpation Context: direct blow Associated symptoms: Reports no associated symptoms Other symptoms: none Related Data Home Medications ?Medication ?Instructions ?Recorded ?Confirmed albuterol sulfate 90 mcg/actuation 2 puff inhalation QID PRN 02/15/20 03/05/23 aerosol inhaler (ProAir HFA) Shortness Of Breath ergocalciferol (vitamin D2) 1,250 1,250 mcg PO Q7D 02/15/20 03/05/23 mcg (50,000 unit) capsule vitamin with calcium 1 tab PO BEDTIME 02/15/20 03/05/23 no.72-iron 27 mg-folic acid 1 mg tablet ( Vitamins Plus Low Iron) cyclobenzaprine 10 mg tablet 10 mg PO TID PRN Muscle Spasm 08/13/20 03/05/23 levothyroxine 75 mcg tablet 75 mcg PO BEDTIME 09/18/20 03/05/23 ibuprofen 800 mg tablet 800 mg PO TID PRN Pain 01/01/21 03/05/23 ondansetron 4 mg disintegrating 4 mg PO Q4H PRN Nausea 01/01/21 03/05/23 tablet lorazepam 1 mg tablet 0.5 - 1 mg PO QPM PRN Anxiety 03/05/23 03/05/23 pantoprazole 40 mg tablet,delayed 40 mg PO BID PRN Acid Reflux 03/05/23 03/05/23 release zolpidem 10 mg tablet 10 mg PO BEDTIME 03/05/23 03/05/23 Previous Rx's ?Medication ?Instructions ?Recorded escitalopram oxalate 10 mg tablet 30 mg (3 x 10 mg) PO BEDTIME 30 03/10/23 days #90 tabs hydroxyzine pamoate 25 mg capsule 50 mg (2 x 25 mg) PO Q6H PRN 03/10/23 Anxiety 30 days #120 caps propranolol 20 mg tablet 20 mg PO TID 30 days #90 tabs 03/10/23 diclofenac sodium 75 mg 75 mg PO Q12H PRN pain #20 tabs 07/10/23 tablet,delayed release ondansetron HCl 4 mg tablet 4 mg PO Q6H PRN nausea and 07/10/23 vomiting #20 tabs tramadol 50 mg tablet 50 mg PO Q6H PRN pain #7 tabs 07/10/23 lidocaine HCl 2 % mucosal solution 5 ml mucous membrane Q3H PRN pain 07/13/23 (Lidocaine Viscous) #100 mL Allergies Allergy/AdvReac Type Severity Reaction Status Date / Time bismuth subsalicylate (From Allergy ADR-Vomitin Verified 07/12/23 23:22 Pepto-Bismol) g lamotrigine (From Lamictal) Allergy ALGY-Rash Verified 07/12/23 23:22 morphine Allergy ALGY-Rash Verified 07/12/23 23:22 oxcarbazepine (From Allergy Unknown Verified 07/12/23 23:22 Trileptal) Review of Systems Musc: Reports: extremity pain (R foot) and extremity swelling (R foot) [facility] ED PFSH: Medical History SVT (supraventricular tachycardia) Hypothyroidism Asthma Anxiety Family History Other CAD (coronary artery disease) Cancer Social History Smoking and tobacco/nicotine status: current every day tobacco/nicotine user (3 CIGARETTES/DAY) cigarettes Packs smoked per day: 0.25 Second hand smoke exposure: No Alcohol intake: current Alcohol intake frequency: holidays/special occasions only Alcohol type: hard liquor Substance/Drug Use: never Physical Exam Const: COMMON NORMALS: no acute distress, no limitations, alert and well nourished GENERAL APPEARANCE: cooperative Extremity: COMMON NORMALS: capillary refill normal GENERAL: Yes normal exam except as noted RIGHT LOWER EXTREMITY: Yes foot & digits (mild contusion/abrasion and ecchymosis dorsal R foot) Right foot and digits: Yes neurovascular exam (normal) and Yes other (no bony abnormalities visualized) Neuro: COMMON NORMALS: moves all extremities, no focal motor deficits and no sensory deficits noted SENSORIUM/ORIENTATION: Yes alert Course Vital Signs: Vital signs: Vital Signs Temperature 97.9 F 11/24/24 19:56 Pulse Rate 70 11/24/24 19:56 Respiratory Rate 18 11/24/24 19:56 Blood Pressure 109/71 11/24/24 19:56 Pulse Oximetry 100 11/24/24 19:56 Oxygen Delivery Me thod Room Air 11/24/24 19:56 MDM - Extremity Injury (Lower) Medical Decision Making I do not visualize any fractures on XR R foot. Offered crutches but she declines. Would like MORGAN wrap. RICE therapy discussed. XR interpretation done by ED provider, pending radiology final review Discharge Plan Discharge Patient Disposition: Home Clinical Impression: Contusion of foot, right Qualifiers: Encounter type: initial encounter Qualified Code(s): S90.31XA - Contusion of right foot, initial encounter Condition: Stable Prescriptions: No Action levothyroxine 75 mcg tablet 75 mcg PO BEDTIME ergocalciferol (vitamin D2) 1,250 mcg (50,000 unit) capsule 1,250 mcg PO Q7D Rx Instructions: ON MONDAYS albuterol sulfate [ProAir HFA] 90 mcg/actuation HFA aerosol inhaler 2 puff INHALATION QID PRN (Reason: Shortness Of Breath) Vitamin Plus Low Iron 27 mg iron- 1 mg tablet 1 tab PO BEDTIME cyclobenzaprine 10 mg tablet 10 mg PO TID PRN (Reason: Muscle Spasm) ibuprofen 800 mg Tablet 800 mg PO TID PRN (Reason: Pain) ondansetron 4 mg tablet,disintegrating 4 mg PO Q4H PRN (Reason: Nausea) pantoprazole 40 mg tablet,delayed release (DR/EC) 40 mg PO BID PRN (Reason: Acid Reflux) lorazepam 1 mg tablet 0.5 - 1 mg PO QPM PRN (Reason: Anxiety) zolpidem 10 mg tablet 10 mg PO BEDTIME propranolol 20 mg Tablet 20 mg PO TID 30 Days Qty: 90 1RF hydroxyzine pamoate 25 mg Capsule 50 mg PO Q6H PRN (Reason: Anxiety) 30 Days Qty: 120 1RF escitalopram oxalate 10 mg Tablet 30 mg PO BEDTIME 30 Days Qty: 90 1RF diclofenac sodium 75 mg tablet,delayed release (DR/EC) 75 mg PO Q12H PRN (Reason: pain) Qty: 20 0RF tramadol 50 mg tablet 50 mg PO Q6H PRN (Reason: pain) Qty: 7 0RF ondansetron HCl 4 mg tablet 4 mg PO Q6H PRN (Reason: nausea and vomiting) Qty: 20 0RF Lidocaine Viscous 2 % solution 5 ml mucous membrane Q3H PRN (Reason: pain) Qty: 100 0RF Discharge Orders: Discharge ED (Routine); Ordered 11/24/24 Ordered By: Charlene Crenshaw Referrals: Abimael,RAIN EdmondsN [Primary Care Provider] - Patient Instructions: Contusion, RICE Therapy Activity Restrictions/Additional Instructions: Ice and elevate the extremity to help with swelling. Weightbearing as tolerated. You may follow-up with primary care in a week or so if symptoms or not improving. Print Language: Bangladeshi Coding Level of Care Code ED [employer] for Julia Emery
[2024-11-24 22:08] VITALS: BP 142/67; PULSE 88; RESP 18; O2SAT 97
== END 2024-11-24 22:09 | disposition home or self-care (01) ==
PROVIDERS: Emergency Provider Physician Assistant; PCP Nurse Practitioner Family
DX: S90.31XA Contusion of right foot, initial encounter (principal); F17.210 Nicotine dependence, cigarettes, uncomplicated; W23.0XXA Caught, crushed, jammed, or pinched between moving objects, initial encounter
CPT/HCPCS: 73630; 99283

== ENCOUNTER 2025-02-14 12:08 | Emergency (ER) | payer SELFPAY ==
[2025-02-14 12:13] VITALS: BP 107/71; PULSE 88; RESP 16; TEMP 36.7; O2SAT 97; BMI 38.3
--- NOTE | 2025-02-14 13:27 | W.ED.EXTPRO ---
HPI - Extremity Problem General: Chief complaint: Extremity Problem,Nontraumatic Stated complaint: leg pain in both legs from knees down Time Seen by Provider: 02/14/25 12:57 Source: patient Mode of arrival: ambulatory Limitations: no limitations History of Present Illness: Patient is a 34-year-old female here for multiple medical complaints although her main issue today seems to be bilateral leg pain. She states over the past month she has had pain to her bilateral lower extremities from her knees down . Pain seems to be constant and significantly worse at night affecting her sleep. She states even the sheets touching her legs causes them to hurt and burn. She has not noticed any edema. No color or temperature changes. Patient seems to think that her vitamins or her thyroid is off . She was just seen in [place], [place] emergency department yesterday for same complaint. She states they did blood work and bilateral lower extremity ultrasounds but was told everything was normal. States she is not a diabetic-that she knows of. Denies alcohol use. States she lost her insurance and has recently moved to [place] so trying to get everything re-established. Also had concerns of nausea, not taking her thyroid meds-due to lack of insurance, follow up regarding her SVT, insomnia stating the only thing that helps is Ambien, some anxiety/anger issues that she contributes to lack of sleep, easy bruising, among others. MD Complaint: extremity pain Onset (ago): month(s) Pain Consistency: constant Location: left, right and lower extremity Quality: burning Radiation: none Associated symptoms: Reports no associated symptoms; Deny chest pain, fever(s) or rash Related Data Home Medications ?Medication ?Instructions ?Recorded ?Confirmed albuterol sulfate 90 mcg/actuation 2 puff inhalation QID PRN 02/15/20 03/05/23 aerosol inhaler (ProAir HFA) Shortness Of Breath ergocalciferol (vitamin D2) 1,250 1,250 mcg PO Q7D 02/15/20 03/05/23 mcg (50,000 unit) capsule vitamin with calcium 1 tab PO BEDTIME 02/15/20 03/05/23 no.72-iron 27 mg-folic acid 1 mg tablet ( Vitamins Plus Low Iron) cyclobenzaprine 10 mg tablet 10 mg PO TID PRN Muscle Spasm 08/13/20 03/05/23 levothyroxine 75 mcg tablet 75 mcg PO BEDTIME 09/18/20 03/05/23 ibuprofen 800 mg tablet 800 mg PO TID PRN Pain 01/01/21 03/05/23 ondansetron 4 mg disintegrating 4 mg PO Q4H PRN Nausea 01/01/21 03/05/23 tablet lorazepam 1 mg tablet 0.5 - 1 mg PO QPM PRN Anxiety 03/05/23 03/05/23 pantoprazole 40 mg tablet,delayed 40 mg PO BID PRN Acid Reflux 03/05/23 03/05/23 release zolpidem 10 mg tablet 10 mg PO BEDTIME 03/05/23 03/05/23 Previous Rx's ?Medication ?Instructions ?Recorded escitalopram oxalate 10 mg tablet 30 mg (3 x 10 mg) PO BEDTIME 30 03/10/23 days #90 tabs hydroxyzine pamoate 25 mg capsule 50 mg (2 x 25 mg) PO Q6H PRN 03/10/23 Anxiety 30 days #120 caps propranolol 20 mg tablet 20 mg PO TID 30 days #90 tabs 03/10/23 diclofenac sodium 75 mg 75 mg PO Q12H PRN pain #20 tabs 07/10/23 tablet,delayed release ondansetron HCl 4 mg tablet 4 mg PO Q6H PRN nausea and 07/10/23 vomiting #20 tabs tramadol 50 mg tablet 50 mg PO Q6H PRN pain #7 tabs 07/10/23 lidocaine HCl 2 % mucosal solution 5 ml mucous membrane Q3H PRN pain 07/13/23 (Lidocaine Viscous) #100 mL gabapentin 300 mg capsule 300 mg PO DAILY #60 caps 02/14/25 Allergies Allergy/AdvReac Type Severity Reaction Status Date / Time bismuth subsalicylate (From Allergy ADR-Vomitin Verified 02/14/25 12:16 Pepto-Bismol) g lamotrigine (From Lamictal) Allergy ALGY-Rash Verified 02/14/25 12:16 morphine Allergy ALGY-Rash Verified 02/14/25 12:16 oxcarbazepine (From Allergy Unknown Verified 02/14/25 12:16 Trileptal) Review of Systems Const: Reports: change in sleep pattern; Denies: fever(s), chills, body aches, change in appetite, change in weight, fatigue or malaise Eyes: Denies: change in vision, blurry vision, photophobia, floaters or seeing flashes ENMT: Denies: throat pain, odynophagia, nasal discharge, nasal congestion or sinus pain Card: Denies: chest pain, palpitations, irregular heart rhythm, edema, swelling of feet/ankles, lightheadedness, syncope, pre-syncope, dyspnea on exertion, orthopnea, leg pain with exertion or acrocyanosis Resp: Denies: dyspnea, productive cough or pain on inspiration GI: Reports: nausea; Denies: abdominal pain, vomiting, heartburn, diarrhea or change in bowel habits : Denies: flank pain, difficulty voiding, dysuria, urinary frequency, urinary urgency or urinary hesitancy Musc: Reports: extremity pain; Denies: neck pain, back pain, extremity swelling, joint pain, joint swelling, joint redness, joint warmth, joint stiffness, limited range of motion, muscle cramps, muscle weakness or decrease in muscle mass Skin/Breast: Denies: rash, pruritus or erythema Neuro: Denies: headache(s), numbness in extremities, weakness in extremities, lack of coordination, difficulty walking, frequent falls or dizziness Psych: Reports: anxiety; Denies: suicidal ideation Felix/Lymph: Reports: easy bruising; Denies: easy bleeding, petechiae or purpura PFSH ED PFSH: Medical History SVT (supraventricular tachycardia) Hypothyroidism Asthma Anxiety Family History Other CAD (coronary artery disease) Cancer Social History Smoking and tobacco/nicotine status: current every day tobacco/nicotine user (3 CIGARETTES/DAY) cigarettes Packs smoked per day: 0.25 Second hand smoke exposure: No Alcohol intake: current Alcohol intake frequency: holidays/special occasions only Alcohol type: hard liquor Substance/Drug Use: never Female Reproductive History: Date of last menstrual period: 01/28/25 Physical Exam Const: COMMON NORMALS: no acute distress, patient oriented x3, no limitations, alert and well nourished GENERAL APPEARANCE: cooperative NUTRITIONAL APPEARANCE: obese (BMI 38.4) ORIENTATION/CONSCIOUSNESS: Yes awake, Yes oriented to person, Yes oriented to place and Yes oriented to time HENMT: COMMON NORMALS: normocephalic and atraumatic HEAD & SCALP: normal to inspection, normocephalic and atraumatic Eye: GENERAL EYE: appearance normal, both eyes and all related structures Neck/C-Spine: COMMON NORMALS: Thyroid normal GENERAL: Yes normal visual inspection THYROID: Thyroid normal Resp: COMMON NORMALS: normal respiratory effort and clear to auscultation bilaterally AUSCULTATION: clear to auscultation bilaterally Cardio: COMMON NORMALS: regular rate and regular rhythm RATE: regular rate RHYTHM: regular rhythm Extremity: COMMON NORMALS: normal to inspection, full ROM, capillary refill normal, no joint enlargement, no clubbing, cyanosis or edema, no calf tenderness and no pedal edema GENERAL: Yes normal exam except as noted OTHER: no abnormalities appreciated to bilateral LEs; distal pulses/cap refill is normal; sensation appears intact Neuro: COMMON NORMALS: patient oriented x3, moves all extremities, no focal motor deficits, no sensory deficits noted and gait normal SENSORIUM/ORIENTATION: Yes alert, Yes oriented to person, Yes oriented to place and Yes oriented to time Skin: COMMON NORMALS: no rashes or lesions noted GENERAL SKIN EXAM: no rashes or lesions noted Course Vital Signs: Vital signs: Vital Signs Temperature 98.0 F 02/14/25 12:13 Pulse Rate 86 02/14/25 13:36 Respiratory Rate 16 02/14/25 12:13 Blood Pressure 131/77 02/14/25 13:36 Pulse Oximetry 96 02/14/25 13:36 Oxygen Delivery Me thod Room Air 02/14/25 12:13 MDM - Extremity (Nontraumatic) Medical Decision Making Patient with benign physical examination. Vital signs are stable. She just had bilateral lower extremity ultrasounds performed at [place] yesterday as well as blood work. These were reportedly normal. I do not see any indication to repeat these just a day later. There is no other additional testing that I would recommend at this time. What she describes, sounds like peripheral neuropathy. Discussed multiple etiologies for this that can be worked up as an outpatient. Will start her on gabapentin to see if this helps. She mentions several other medical complaints ultimately that need to be worked up as an outpatient. She does not want to establish care here at [facility]. She is going to try to find a primary care provider in [place] once her new insurance goes through. Medical Records I reviewed the patient's medical records. No radiology studies performed this visit Discharge Plan Discharge Patient Disposition: Home Clinical Impression: Peripheral neuropathy Qualifiers: Peripheral neuropathy type: polyneuropathy, unspecified Qualified Code(s): G62.9 - Polyneuropathy, unspecified Condition: Stable Prescriptions: New gabapentin 300 mg capsule 300 mg PO DAILY Qty: 60 0RF Rx Instructions: Take 300mg PO QD x 1 day, then 300mg PO BID x 1 day, then 300mg PO TID thereafter No Action levothyroxine 75 mcg tablet 75 mcg PO BEDTIME ergocalciferol (vitamin D2) 1,250 mcg (50,000 unit) capsule 1,250 mcg PO Q7D Rx Instructions: ON MONDAYS albuterol sulfate [ProAir HFA] 90 mcg/actuation HFA aerosol inhaler 2 puff INHALATION QID PRN (Reason: Shortness Of Breath) Vitamin Plus Low Iron 27 mg iron- 1 mg tablet 1 tab PO BEDTIME cyclobenzaprine 10 mg tablet 10 mg PO TID PRN (Reason: Muscle Spasm) ibuprofen 800 mg Tablet 800 mg PO TID PRN (Reason: Pain) ondansetron 4 mg tablet,disintegrating 4 mg PO Q4H PRN (Reason: Nausea) pantoprazole 40 mg tablet,delayed release (DR/EC) 40 mg PO BID PRN (Reason: Acid Reflux) lorazepam 1 mg tablet 0.5 - 1 mg PO QPM PRN (Reason: Anxiety) zolpidem 10 mg tablet 10 mg PO BEDTIME propranolol 20 mg Tablet 20 mg PO TID 30 Days Qty: 90 1RF hydroxyzine pamoate 25 mg Capsule 50 mg PO Q6H PRN (Reason: Anxiety) 30 Days Qty: 120 1RF escitalopram oxalate 10 mg Tablet 30 mg PO BEDTIME 30 Days Qty: 90 1RF diclofenac sodium 75 mg tablet,delayed release (DR/EC) 75 mg PO Q12H PRN (Reason: pain) Qty: 20 0RF tramadol 50 mg tablet 50 mg PO Q6H PRN (Reason: pain) Qty: 7 0RF ondansetron HCl 4 mg tablet 4 mg PO Q6H PRN (Reason: nausea and vomiting) Qty: 20 0RF Lidocaine Viscous 2 % solution 5 ml mucous membrane Q3H PRN (Reason: pain) Qty: 100 0RF Discharge Orders: Discharge ED (Routine); Ordered 02/14/25 Ordered By: Charlene Crenshaw Referrals: Kendal Varghese APN [Primary Care Provider, Nurse Practitioner] Patient Instructions: Peripheral Neuropathy (ED), Peripheral Neuropathy Activity Restrictions/Additional Instructions: As we discussed, I would like you to follow-up with a primary care provider soon as possible. There are many issues that need to be addressed through primary care versus here today at the emergency department. We will place you on gabapentin to see if this helps with your leg discomfort. Print Language: Uzbek Coding Level of Care Code ED Avionics Technician for Julia Emery
[2025-02-14 13:36] VITALS: BP 131/77; PULSE 86; O2SAT 96
== END 2025-02-14 13:37 | disposition home or self-care (01) ==
PROVIDERS: Emergency Provider Physician Assistant; PCP Nurse Practitioner Family
DX: G62.9 Polyneuropathy, unspecified (principal); F17.210 Nicotine dependence, cigarettes, uncomplicated
CPT/HCPCS: 99283

== ENCOUNTER 2025-06-30 05:28 | Emergency (ER) | payer MEDICAID, SELFPAY ==
--- OUTSIDE RECORDS SUMMARY | 2011-01-01 05:00 | XMS_ITS | Continuity of Care Document ---
Author Organization [facility] Address [address] [place] [address] Phone Care Team Providers Care Senior Scientist Name Role Phone Unavailable Unavailable Unavailable Medications Medication Instructions Dosage Effective Dates (start - stop) Status Comments Albuterol Sulfate HFA 90 mcg/Actuation Aerosol Inhaler - Active Advance Directives Directive Yes / No Effective Date File Name No Information Encounters Encounter Description Practice Location Reason(s) For Visit Diagnoses Date Provider Providers Copied on Encounter [facility], [address], [place], [place], [id number], [place] tel:[phone] Noteworthy Legacy Data Cough No Information Family History Family Member Type Diagnosis Age At Onset No Information Payers Payer name Insurance type Covered republican ID Authoriza tion(s) No Information Social History Type Description Quantity Date Captured Comments Sex Female Smoking Status No Information Vital Signs Date / Time: Height Weight BMI Pulse Rate Blood Pressure Temperature Respiratory Rate Body Surface Area Head Circumference Head Circ. Percentile Wt./[place]. Percentile BMI percentile Pulse Ox Inhaled Ox 10:32 AM 75.300 kg 62 /min 110/60 mm[Hg] 99.10 F 20 /min Chief Complaint And Reason For Visit No Information Reason For Referral Reason For Referral No Information History Of Present Illness Encounter Date Complaint History Of Prese nt Illness No Information Functional Status Date Functional Assessmen t No Information Instructions Date Instruction Additional Infor mation No Information Assessments Type Assessment Date No Information Patient Care Teams Name Effective Dates (start - stop) Status Members No Information
--- NOTE | 2025-06-30 05:30 | XRR_ITS ---
PROCEDURE INFORMATION: Exam: XR Abdomen Exam date and time: 06/30/2025 5:45 AM Age: 35 years old Clinical indication: Prior surgery; Surgery date: 6+ months; Surgery type: Gb. Csection; C/O constipation and diarrhea for last few weeks TECHNIQUE: Imaging protocol: Radiologic exam of the abdomen. Views: Frontal supine view of the abdomen. 1 View. COMPARISON: CR XR chest 1V portable [id number] 09/20/2023 11:15 AM FINDINGS: Gastrointestinal tract: Normal. No bowel dilation. No abnormal intra-abdominal masses Bones/joints: Unremarkable. XR/XR KUB portable [id number] IMPRESSION: No acute findings.
--- OUTSIDE RECORDS SUMMARY | 2025-06-30 05:33 | XMS_ITS | Patient Health Record ---
Author Organization [facility] Address [address] [place] [address] Care Team Providers Care Public Affairs Manager Name Role Phone Myriam Colón Unavailable [phone] MYRIAM COLÓN Unavailable Unavailable Kendal Varghese Unavailable [phone] Allergies Allergen (clinical drug ingredient) Drug/Non Drug Allergy documented on EMR Reaction Allergy Type Onset Date Status lamotrigine LaMICtal rash Drug Allergy Activ e bismuth subsalicylate Pepto-Bismol vomiting Drug Allergy Active oxcarbazepine Trileptal rash Drug Allergy Act vinod morphine Morphine itching Drug Allergy Active Results Component Value Reference Range Notes Fingers 3V Right-25250 Reviewed date:03/06/2025 06:06:32 AM Interpretation: Performing Lab: Notes/Report: See Below For Report Fingers 3V Right Read See Below For Report Reason For Referral No Information Medications Medication SIG (Take, Route, Frequency, Duration) Notes Start Date End Date Status Zolpidem Tartrate 10 MG Tablet TAKE 1 TABLET BY MOUTH AT BEDTIME NEEDED FOR SLEEP , MUST LAST 30 DAYS; Duration: 30 05/19/2024 Active Cyclobenzaprine HCl 10 mg Tablet 1 tab orally three times a day prn muscle spasms; Duration: 30 days Active M- Plus 27-1 MG Tablet TAKE ONE TAB LET BY MOUTH EVERY DAY; Duration: 30 Active hydrOXYzine HCl 50 mg Tablet 1 to 2 tabs orally twice a day prn severe anxiety; Duration: 30 days Active Escitalopram Oxalate 20 mg Tablet TAKE 1 AND 1/2 TABLETS BY MOUTH ONCE a DAY; Duration: 30 Active Ventolin HFA 108 (90 Base) MCG/ACT Aerosol Solution inhale TWO puffs into lungs FOUR TIMES DAILY NEEDED FOR SHORTNESS OF BREATH OR wheezing; Duration: 25 Active Ibuprofen 800 mg Tablet TAKE ONE TABLET BY MOUTH THREE TIMES DAILY AFTER MEALS NEEDED FOR MUSCLE SPASMS; Duration: 30 Active traMADol HCl 50 MG Tablet 1 tab Orally q 4 hours prn severe pain; Duration: 30 days 07/06/2023 Active LORazepam 1 mg Tablet TAKE one half TO o ne TABLET BY MOUTH TWICE DAILY NEEDED FOR SEVERE ANXIETY FOR 30 DAYS; Duration: 30 05/19/2023 Not-Taking Benzonatate 100 MG Capsule TAKE 1 CAPSUL E BY MOUTH THREE TIMES DAILY NEEDED FOR COUGH Oral Three times a day; Duration: 5 days Not-Taking Vitamin D (Ergocalciferol) 1.25 MG (63220 UT) Capsule TAKE ONE CAPSULE BY MOUTH ONCE WEEKLY; Duration: 30 Active Pantoprazole Sodium 40 mg Tablet Delayed Release TAKE ONE TABLET BY MOUTH TWICE DAILY *dose increase*; Duration: 30 Active Ondansetron 4 mg Tablet Disintegrating DISSOLVE ONE TABLET BY MOUTH EVERY 4 HOURS NEEDED FOR FOR NAUSEA AND VOMITING; Duration: 3 Active busPIRone HCl 10 mg Tablet TAKE 1/2 TO 1 TABLET BY MOUTH TWICE DAILY NEEDED FOR moderate ANXIETY; Duration: 30 Active Famotidine 40 mg Tablet TAKE ONE TABLET BY MOUTH ONCE daily at noon; Duration: 30 Active Levothyroxine Sodium 75 mcg Tablet TAKE ONE TABLET BY MOUTH DAILY (DOSE increase); Duration: 30 Active Social History Tobacco Use: Social History Observation Description Date Details (start date - stop date) Current Smoker NA - NA Social History Depression Screening Social Info Question Answer Notes depression screening findings Findings Positive (5+ without suicidality) PHQ-9 Little interest or pleasure in doing things Nearly every day Feeling down, depressed, or hopeless Several day s Trouble falling or staying a sleep, or sleeping too much More than half the days Feeling tired or having little energy Several da ys Poor appetite or overeating Nearly every day Feeling bad about yourself, or that you are a failure, or have let yourself or your family down Several days Trouble concentrating on thi ngs, such as reading the newspaper or watching television Nearly every day Moving or speaking so slowly that other people could have noticed. Or the opposite ? being so fidgety or restless that you have been moving around a lot more than usual Several days Thoughts that you would be b marybeth off , or of hurting yourself in some way Not at all Total Score 15 Interpretation Moderately severe depression Drugs/Alcohol: Social Info Question Answer Notes Alcohol Screen (Audit-C) Did you have a drink containing alcohol in the past year? Yes How often did you have a drink containing alcohol in the past year? Monthly or less (1 point) How many drinks did you have on a typical day when you were drinking in the past year? 1 or 2 drinks (0 point) How often did you have 6 or more drinks on one occasion in the past year? Never (0 point) Points 1 Interpretation Negative Drugs Have you used drugs other than those for medical reasons in the past 12 months? No patient states past drug abuse Tobacco Use: Social Info Question Answer Notes xTobacco Use/Smoking Are you a current smoker How often do you smoke cigarettes? every day How many cigarettes a day do you smoke? 6-10 How soon after you wake up do you smoke your first cigarette? after 60 minutes Are you interested in quitting? Ready to quit Additional Details Category Social Info Options Details Drugs/Alcohol: Do you smoke marijuana? De nies Do you drink alcohol? Yes, occas ionally Section Notes: 03/10/2022 Depression screen completed 03/19/2023 score 15 Depression screen completed 03/19/2023 score 15 Depression screen completed 03/19/2023 score 15 Depression screen completed 03/19/2023 score 15 03/10/2022 03/10/2022 03/10/2022 Problems Problem Type SNOMED Code ICD Code Onset Dates Problem Status W/U Status Risk Notes Problem Mixed hyperlipidemia (515844267) Mixed hyperlipidemia (E78.2) Active confirmed Problem Tobacco user (487600289) Nicotine dependence, cigarettes, uncomplicated (F17.210) Active confirmed Problem Primary insomnia (8069921) Primary insomnia (F51.01) Active confirmed Problem Gastroesophageal reflux disease without esophagitis (162158478) Gastroesophageal reflux disease without esophagitis (K21.9) Active confirmed Problem Anxiety (21112503) Anxiety (F41.9) Active confi rmed Problem Gastroesophageal reflux disease (185083415) GERD without esophagitis (K21.9) Active confirmed Problem Influenza (4850135) Influenza (J11.1) Active co nfirmed Problem Acute non-suppurative otitis media - serous (935029674) Non-recurrent acute serous otitis media of left ear (H65.02) Active confirmed Problem Exacerbation of moderate persistent asthma (disorder) (749993660) Moderate persistent asthmatic bronchitis with acute exacerbation (J45.41) Active confirmed Problem Insomnia (134101503) Insomnia (G47.00) Active confirmed Problem Migraine with aura (5483101) Migraine with aura and without status migrainosus, not intractable (G43.109) Active confirmed Problem Candidiasis of mouth (97892230) Thrush, oral (B37.0) Active confirmed Problem Febrile illness (551842496) Febrile illness (R50.9) Active confirmed Problem Diabetes mellitus screening (350876200) Diabetes mellitus screening (Z13.1) Active confirmed Problem Acquired hypothyroidism (453869836) Acquired hypothyroidism (E03.9) Active confirmed Problem Memory problem (765357559) Memory problem (R41.3) Active confirmed Problem Depression (680621115) Other depression (F32.89) Active confirmed Problem Morbid obesity (053622794) Morbid obesity (E66.01) Active confirmed Problem Lipid screening (044770951) Lipid screening (Z13.220) Active confirmed Problem Supraventricular tachycardia (5623792) SVT (supraventricular tachycardia) (I47.1) Active confirmed Problem Body mass index 35.00 to 39.99 (209880974027527) Body mass index [BMI] 37.0-37.9, adult (Z68.37) Active confirmed Problem Suspected disease caused by Severe acute respiratory coronavirus 2 (situation) (926276833) Encounter for screening for COVID-19 (Z11.52) Active confirmed Problem Acute cough (723891303336004508 ) Acute cough (R05.1) Active confirmed Problem Long-term current use of drug therapy (087354953) group home current use of antiarrhythmic medical therapy (Z79.899) Active confirmed Problem Vaginal candidiasis (51799297) Vaginal candidiasis (B37.31) Active confirmed Encounters Encounter Location Date Provider Diagnosis [address] [id number] 09/27/2024 [facility] Plan Of Treatment No Information Insurance Providers Payer Name Payer Address Payer Phone Subscriber Number Group Number Insured Name Patient Relationship to Insured Coverage Start Date Coverage End Date [employer] Medicaid Replacement [address] [facility] [place] [phone] [id number] Jorge, Noemi Self - patient is the insured Medications Administered Medication Instructions Date of Administration Dosage Notes DEPO-Medrol 04/27/2022 40 [place]; [id number] Patient tolerated well, advised to wait 20 min at clinic DEPO-Medrol 09/22/2022 40 mg nd [id number] -[id number] pt tolerated well/instructed to wait 20 min dexAMETHasone 04/27/2022 4 mg ND: [address]- 239-30 dexAMETHasone 09/22/2022 4 mg [facility] [id number] pt tolerated well/instructed to wait 20 min Rocephin 04/27/2022 250 mg ND: [address]384-27 Patient tolerated well, advised to wait 20 min at [facility] Rocephin 09/22/2022 1 g [facility] [phone] pt tolerated well/instructed to wait 20 min Medical (General) History Medical History History ICD Code Chicken Pox Pneumonia anemia chronic bladder infections migraine headaches hernia Back Trouble Low Blood Pressure hemorrhoids asthma hives bronchitis stroke anxiety depression GERD SVT Surgical History Surgery Date(Month/Year) section x3 tubal ligation 01/09/2014 cholecystectomy ablasion, SVT tongue tie release Hospitalization History Reason Date(Month/Year) see surgery hx
[2025-06-30 05:36] VITALS: BP 123/93; PULSE 67; RESP 18; TEMP 36.6; O2SAT 99; BMI 37.5
--- NOTE | 2025-06-30 05:52 | W.ED.ABDPA2 ---
HPI - Abdominal Pain General: Chief Complaint: Abdominal Pain Stated Complaint: CONSTIPATION Time Seen by Provider: 06/30/25 05:46 Source: patient Mode of arrival: ambulatory Limitations: no limitations History of Present Illness: 35-year-old female who states she has been having abdominal pain and constipation for 3 weeks. Patient states she has tried multiple things with no bowel movements. She denies any vomiting she had cramping pain denies any worse improved factors Associated Symptoms: Reports constipation; Denies chills, diarrhea, fever(s), nausea and vomiting Related Data Home Medications ?Medication ?Instructions ?Recorded ?Confirmed albuterol sulfate 90 mcg/actuation 2 puff inhalation QID PRN 02/15/20 03/05/23 aerosol inhaler (ProAir HFA) Shortness Of Breath ergocalciferol (vitamin D2) 1,250 1,250 mcg PO Q7D 02/15/20 03/05/23 mcg (50,000 unit) capsule vitamins with calcium 1 tab PO BEDTIME 02/15/20 03/05/23 no.72-iron 27 mg-folic acid 1 mg tablet ( Vitamins Plus Low Iron) cyclobenzaprine 10 mg tablet 10 mg PO TID PRN Muscle Spasm 08/13/20 03/05/23 levothyroxine 75 mcg tablet 75 mcg PO BEDTIME 09/18/20 03/05/23 ibuprofen 800 mg tablet 800 mg PO TID PRN Pain 01/01/21 03/05/23 ondansetron 4 mg disintegrating 4 mg PO Q4H PRN Nausea 01/01/21 03/05/23 tablet lorazepam 1 mg tablet 0.5 - 1 mg PO QPM PRN Anxiety 03/05/23 03/05/23 pantoprazole 40 mg tablet,delayed 40 mg PO BID PRN Acid Reflux 03/05/23 03/05/23 release zolpidem 10 mg tablet 10 mg PO BEDTIME 03/05/23 03/05/23 Previous Rx's ?Medication ?Instructions ?Recorded escitalopram oxalate 10 mg tablet 30 mg (3 x 10 mg) PO BEDTIME 30 03/10/23 days #90 tabs hydroxyzine pamoate 25 mg capsule 50 mg (2 x 25 mg) PO Q6H PRN 03/10/23 Anxiety 30 days #120 caps propranolol 20 mg tablet 20 mg PO TID 30 days #90 tabs 03/10/23 diclofenac sodium 75 mg 75 mg PO Q12H PRN pain #20 tabs 07/10/23 tablet,delayed release ondansetron HCl 4 mg tablet 4 mg PO Q6H PRN nausea and 07/10/23 vomiting #20 tabs tramadol 50 mg tablet 50 mg PO Q6H PRN pain #7 tabs 07/10/23 lidocaine HCl 2 % mucosal solution 5 ml mucous membrane Q3H PRN pain 07/13/23 (Lidocaine Viscous) #100 mL gabapentin 300 mg capsule 300 mg PO DAILY #60 caps 02/14/25 ondansetron 4 mg disintegrating 4 mg PO Q6H PRN nausea and 06/30/25 tablet vomiting #14 tabs peg 3350-electrolytes 236 25 ml PO Q1M #4,000 mL 06/30/25 gram-22.74 gram-6.74 gram-5.86 gram solution (Golytely) Allergies Allergy/AdvReac Type Severity Reaction Status Date / Time bismuth subsalicylate (From Allergy ADR-Vomitin Verified 02/14/25 12:16 Pepto-Bismol) g lamotrigine (From Lamictal) Allergy ALGY-Rash Verified 02/14/25 12:16 morphine Allergy ALGY-Rash Verified 02/14/25 12:16 oxcarbazepine (From Allergy Unknown Verified 02/14/25 12:16 Trileptal) Review of Systems Const: Denies: fever(s), chills, body aches or change in appetite ENMT: Denies: throat pain or dental pain Card: Denies: chest pain Resp: Denies: dyspnea GI: Reports: abdominal pain and constipation; Denies: nausea, vomiting or diarrhea Musc: Denies: neck pain or back pain Skin/Breast: Denies: rash Neuro: Denies: headache(s) PFSH ED PFSH: Medical History SVT (supraventricular tachycardia) Hypothyroidism Asthma Anxiety Family History Other CAD (coronary artery disease) Cancer Social History Smoking and tobacco/nicotine status: current every day tobacco/nicotine user (3 CIGARETTES/DAY) cigarettes Packs smoked per day: 0.25 Second hand smoke exposure: No Alcohol intake: current Alcohol intake frequency: holidays/special occasions only Alcohol type: hard liquor Substance/Drug Use: never Physical Exam Const: COMMON NORMALS: no acute distress, patient oriented x3 and healthy appearing HENMT: COMMON NORMALS: normocephalic and atraumatic HEAD & SCALP: normocephalic and atraumatic Eye: COMMON NORMALS: Equal, round and reactive pupils present and EOMs intact bilaterally PUPIL: Yes Equal, round and reactive pupils present Neck/C-Spine: COMMON NORMALS: full ROM and supple Chest: COMMONS NORMALS: normal inspection of the chest and normal palpation of entire chest wall Resp: COMMON NORMALS: normal respiratory effort, No retractions, No use of accessory muscles and clear to auscultation bilaterally AUSCULTATION: clear to auscultation bilaterally Cardio: COMMON NORMALS: regular rate, regular rhythm and No murmurs present (Cardio) RATE: regular rate RHYTHM: regular rhythm GI: COMMON NORMALS: Normal to inspection, nondistended, normoactive bowel sounds present, Soft to palpation, non-tender and no masses PALPATION: Yes Soft to palpation Extremity: COMMON NORMALS: normal to inspection and full ROM Neuro: COMMON NORMALS: patient oriented x3, moves all extremities and no focal motor deficits Psych: COMMON NORMALS: mental status grossly normal, Normal thought process present and cooperative THOUGHT PROCESS: Normal thought process present Skin: COMMON NORMALS: no rashes or lesions noted and no wounds GENERAL SKIN EXAM: no rashes or lesions noted Course Vital Signs: Vital signs: Vital Signs Temperature 97.8 F 06/30/25 05:36 Pulse Rate 62 06/30/25 06:45 Respiratory Rate 18 06/30/25 06:45 Blood Pressure 110/66 06/30/25 06:45 Pulse Oximetry 99 06/30/25 06:45 Oxygen Delivery Me thod Room Air 06/30/25 06:45 MDM - Abdominal Pain Medical Decision Making Patient presents for abdominal pain along with constipation her abdominal exam here is benign she has no signs of appendicitis pancreatitis diverticulitis or acute surgical abdomen. I did review her blood work which was normal with a normal white count x-ray shows constipation I went over these results with her did give her lactulose along with Zofran will prescribe her Zofran along with GoLytely she is to follow-up with PCP and return if worsening she understands agrees to plan. Medical Records I reviewed the patient's medical records. Lab Data I reviewed the patient's lab results. 06/30/25 05:55 06/30/25 05:55 Labs/Radiology: Laboratory Results WBC 7.32 10^3/uL (3.29-11.43) 06/30/25 05:55 RBC 4.30 10^6/uL (3.85-5.65) 06/30/25 05:55 Hgb 13.00 g/dL (11.27-16.99) 06/30/25 05:55 Hct 39.3 % (36-47) 06/30/25 05:55 MCV 91.4 fl (85-98) 06/30/25 05:55 MCH 30.2 pg (27-33) 06/30/25 05:55 MCHC 33.1 g/dL (30-55) 06/30/25 05:55 RDW 12.5 % (12.1-15.1) 06/30/25 05:55 Plt Count 281 10^3/cmm (157-399) 06/30/25 05:55 MPV 10.0 fL (7.4-10.4) 06/30/25 05:55 Neut % (Auto) 55.9 % 06/30/25 05:55 Lymph % (Auto) 32.2 % 06/30/25 05:55 [place] % (Auto) 9.2 % 06/30/25 05:55 Eos % (Auto) 2.2 % 06/30/25 05:55 Baso % (Auto) 0.4 % 06/30/25 05:55 Neut # (Auto) 4.09 10^3/uL (1.8-7.7) 06/30/25 05:55 Lymph # (Auto) 2.4 10^3/uL (0.8-4.8) 06/30/25 05:55 [place] # (Auto) 0.7 10^3/uL (0.2-0.9) 06/30/25 05:55 Eos # (Auto) 0.2 10^3/uL (0.0-0.8) 06/30/25 05:55 Baso # (Auto) 0.0 10^3/uL (0.0-0.1) 06/30/25 05:55 Nucleated RBC % (auto) 0 % 06/30/25 05:55 Nucleated RBCs # 0.0 /100WBC 06/30/25 05:55 Sodium 139 mmol/L (136-145) 06/30/25 05:55 Potassium 3.6 mmol/L (3.5-5.1) 06/30/25 05:55 Chloride 103 mmol/L (98-107) 06/30/25 05:55 Carbon Dioxide 24 mmol/L (22-29) 06/30/25 05:55 Anion Gap 15.6 (5-19) 06/30/25 05:55 BUN 14 mg/dL (6-20) 06/30/25 05:55 Creatinine 0.7 mg/dL (0.5-0.9) 06/30/25 05:55 GFR Calculation 94.7 mL/min (90-130) 06/30/25 05:55 Glucose 109 mg/dL (65-115) 06/30/25 05:55 Calculated Osmolality 289 mOsm/kg (285-295) 06/30/25 05:55 Calcium 9.2 mg/dL (8.5-10.5) 06/30/25 05:55 Total Bilirubin 0.2 mg/dL (0.15-1.2) 06/30/25 05:55 AST 14 U/L (0-32) 06/30/25 05:55 ALT 14 U/L (0-33) 06/30/25 05:55 Alkaline Phosphatase 84 U/L (35-105) 06/30/25 05:55 Total Protein 6.7 g/dL (6.6-8.7) 06/30/25 05:55 Albumin 4.1 g/dL (3.5-5.2) 06/30/25 05:55 Globulin 2.6 g/dL (1.3-4.6) 06/30/25 05:55 Lipase 21 U/L (13-60) 06/30/25 05:55 XR interpretation done by ED provider, pending radiology final review ED provider radiology interpretation(s): xr abdomen: constipation Discharge Plan Discharge Patient Disposition: Home Clinical Impression: Constipation Condition: Stable Prescriptions: New peg 3350-electrolytes [Golytely] 236-22.74-6.74 -5.86 gram recon soln 25 ml PO Q1M Qty: 4000 0RF Rx Instructions: until fecal effluent is clear ondansetron 4 mg tablet,disintegrating 4 mg PO Q6H PRN (Reason: nausea and vomiting) Qty: 14 0RF No Action levothyroxine 75 mcg tablet 75 mcg PO BEDTIME ergocalciferol (vitamin D2) 1,250 mcg (50,000 unit) capsule 1,250 mcg PO Q7D Rx Instructions: ON MONDAYS albuterol sulfate [ProAir HFA] 90 mcg/actuation HFA aerosol inhaler 2 puff INHALATION QID PRN (Reason: Shortness Of Breath) Vitamin Plus Low Iron 27 mg iron- 1 mg tablet 1 tab PO BEDTIME cyclobenzaprine 10 mg tablet 10 mg PO TID PRN (Reason: Muscle Spasm) ibuprofen 800 mg Tablet 800 mg PO TID PRN (Reason: Pain) ondansetron 4 mg tablet,disintegrating 4 mg PO Q4H PRN (Reason: Nausea) pantoprazole 40 mg tablet,delayed release (DR/EC) 40 mg PO BID PRN (Reason: Acid Reflux) lorazepam 1 mg tablet 0.5 - 1 mg PO QPM PRN (Reason: Anxiety) zolpidem 10 mg tablet 10 mg PO BEDTIME propranolol 20 mg Tablet 20 mg PO TID 30 Days Qty: 90 1RF hydroxyzine pamoate 25 mg Capsule 50 mg PO Q6H PRN (Reason: Anxiety) 30 Days Qty: 120 1RF escitalopram oxalate 10 mg Tablet 30 mg PO BEDTIME 30 Days Qty: 90 1RF gabapentin 300 mg capsule 300 mg PO DAILY Qty: 60 0RF Rx Instructions: Take 300mg PO QD x 1 day, then 300mg PO BID x 1 day, then 300mg PO TID thereafter diclofenac sodium 75 mg tablet,delayed release (DR/EC) 75 mg PO Q12H PRN (Reason: pain) Qty: 20 0RF tramadol 50 mg tablet 50 mg PO Q6H PRN (Reason: pain) Qty: 7 0RF ondansetron HCl 4 mg tablet 4 mg PO Q6H PRN (Reason: nausea and vomiting) Qty: 20 0RF Lidocaine Viscous 2 % solution 5 ml mucous membrane Q3H PRN (Reason: pain) Qty: 100 0RF Discharge Orders: Discharge ED (Routine); Ordered 06/30/25 Ordered By: Jonas Brownlee Referrals: Varghese,RAIN EdmondsN [Primary Care Provider, Nurse Practitioner] - 4-7 days Discharge Diet: Advance as tolerated Discharge Activity: Resume usual activity Patient Instructions: Constipation (ED) Print Language: Panamanian Coding Level of Care Code ED Fur Farmer for Julia Emery
[2025-06-30 06:01] LABS: Hematocrit 39.3 % (36-47); Hemoglobin 13.00 g/dL (11.27-16.99); Mean Corpuscular HGB Conc 33.1 g/dL (30-55); Mean Corpuscular Hemoglobin 30.2 pg (27-33); Mean Corpuscular Volume 91.4 fl (85-98); Nucleated Red Blood Cells % 0 %; Platelet Count 281 10^3/cmm (157-399); Red Blood Count 4.30 10^6/uL (3.85-5.65); White Blood Count 7.32 10^3/uL (3.29-11.43)
[2025-06-30 06:22] LABS: Alanine Aminotransferase 14 U/L (0-33); Albumin Level 4.1 g/dL (3.5-5.2); Alkaline Phosphatase 84 U/L (35-105); Anion Gap 15.6 (5-19); Aspartate Amino Transferase 14 U/L (0-32); Blood Urea Nitrogen 14 mg/dL (6-20); Calcium 9.2 mg/dL (8.5-10.5); Carbon Dioxide 24 mmol/L (22-29); Chloride 103 mmol/L (98-107); Creatinine Clr Calc Pharmacy 141.2029; Globulin 2.6 g/dL (1.3-4.6); Glucose 109 mg/dL (65-115); Lipase 21 U/L (13-60); Osmolality Calculated 289 mOsm/kg (285-295); Potassium 3.6 mmol/L (3.5-5.1); Sodium 139 mmol/L (136-145); Total Protein 6.7 g/dL (6.6-8.7)
[2025-06-30] MEDS: lactulose oral liq 20 gm/30 mL UDC 30 GM PO (06:40)
[2025-06-30 06:45] VITALS: BP 110/66; PULSE 62; RESP 18; O2SAT 99
== END 2025-06-30 07:17 | disposition home or self-care (01) ==
PROVIDERS: Emergency Provider Emergency Medicine; PCP Nurse Practitioner Family
DX: K59.00 Constipation, unspecified (principal); F17.210 Nicotine dependence, cigarettes, uncomplicated
CPT/HCPCS: 36415; 74018; 80053; 83690; 85025; 99284; J9999

== ENCOUNTER 2025-08-20 07:57 | Emergency (ER) | payer MEDICAID, SELFPAY ==
--- NOTE | 2025-08-20 07:46 | XR_ITS ---
WS: [id number] PORTABLE CHEST HISTORY: dyspnea/cough COMPARISON: 09/20/2023 Lungs are clear and well expanded. No pleural effusion or pneumothorax. Cardiac size: Normal. Mediastinum/Aorta: Normal mediastinum. No osseous abnormality seen. XR/XR chest 1V portable [id number] IMPRESSION: Unremarkable portable chest.
[2025-08-20 07:59] VITALS: BP 119/80; PULSE 78; RESP 20; TEMP 36.7; O2SAT 100
--- NOTE | 2025-08-20 08:01 | W.ED.GENADLT ---
HPI - General Adult General: Chief complaint: Chest Pain Stated complaint: chest pressure - palpitations History of Present Illness: 35-year-old female presents emergency room complaining of palpitations rapid heart rate some mild chest couplets morning. She has a history of SVT she is not currently taking any of her medication she had moved and has not reestablished in 1 had any medicines refilled she also has a history of hypothyroidism has not been on her levothyroxine. She did have a failed abrasion previously. She was taking propranolol 20 mg 3 times daily for rate control. EMS did not report any SVT on scene or and route. Associated symptoms: Reports palpitations; Deny chest pain, dyspnea or rash Related Data Home Medications ?Medication ?Instructions ?Recorded ?Confirmed albuterol sulfate 90 mcg/actuation 2 puff inhalation QID PRN 02/15/20 03/05/23 aerosol inhaler (ProAir HFA) Shortness Of Breath ergocalciferol (vitamin D2) 1,250 1,250 mcg PO Q7D 02/15/20 03/05/23 mcg (50,000 unit) capsule vitamins with calcium 1 tab PO BEDTIME 02/15/20 03/05/23 no.72-iron 27 mg-folic acid 1 mg tablet ( Vitamins Plus Low Iron) cyclobenzaprine 10 mg tablet 10 mg PO TID PRN Muscle Spasm 08/13/20 03/05/23 levothyroxine 75 mcg tablet 75 mcg PO BEDTIME 09/18/20 03/05/23 ibuprofen 800 mg tablet 800 mg PO TID PRN Pain 01/01/21 03/05/23 ondansetron 4 mg disintegrating 4 mg PO Q4H PRN Nausea 01/01/21 03/05/23 tablet lorazepam 1 mg tablet 0.5 - 1 mg PO QPM PRN Anxiety 03/05/23 03/05/23 pantoprazole 40 mg tablet,delayed 40 mg PO BID PRN Acid Reflux 03/05/23 03/05/23 release zolpidem 10 mg tablet 10 mg PO BEDTIME 03/05/23 03/05/23 Previous Rx's ?Medication ?Instructions ?Recorded escitalopram oxalate 10 mg tablet 30 mg (3 x 10 mg) PO BEDTIME 30 03/10/23 days #90 tabs hydroxyzine pamoate 25 mg capsule 50 mg (2 x 25 mg) PO Q6H PRN 03/10/23 Anxiety 30 days #120 caps propranolol 20 mg tablet 20 mg PO TID 30 days #90 tabs 03/10/23 diclofenac sodium 75 mg 75 mg PO Q12H PRN pain #20 tabs 07/10/23 tablet,delayed release ondansetron HCl 4 mg tablet 4 mg PO Q6H PRN nausea and 07/10/23 vomiting #20 tabs tramadol 50 mg tablet 50 mg PO Q6H PRN pain #7 tabs 07/10/23 lidocaine HCl 2 % mucosal solution 5 ml mucous membrane Q3H PRN pain 07/13/23 (Lidocaine Viscous) #100 mL gabapentin 300 mg capsule 300 mg PO DAILY #60 caps 02/14/25 ondansetron 4 mg disintegrating 4 mg PO Q6H PRN nausea and 06/30/25 tablet vomiting #14 tabs peg 3350-electrolytes 236 25 ml PO Q1M #4,000 mL 06/30/25 gram-22.74 gram-6.74 gram-5.86 gram solution (Golytely) levothyroxine 75 mcg tablet 75 mcg PO DAILY #30 tabs 08/20/25 (Synthroid) Allergies Allergy/AdvReac Type Severity Reaction Status Date / Time bismuth subsalicylate (From Allergy ADR-Vomitin Verified 02/14/25 12:16 Pepto-Bismol) g lamotrigine (From Lamictal) Allergy ALGY-Rash Verified 02/14/25 12:16 morphine Allergy ALGY-Rash Verified 02/14/25 12:16 oxcarbazepine (From Allergy Unknown Verified 02/14/25 12:16 Trileptal) Review of Systems Const: Denies: fever(s) or chills Card: Reports: palpitations; Denies: chest pain Resp: Denies: dyspnea GI: Denies: abdominal pain : Denies: dysuria, urinary frequency or urinary urgency Musc: Denies: neck pain or back pain Skin/Breast: Denies: rash PFSH ED PFSH: Medical History SVT (supraventricular tachycardia) Hypothyroidism Asthma Anxiety Family History Other CAD (coronary artery disease) Cancer Social History Smoking and tobacco/nicotine status: current every day tobacco/nicotine user (3 CIGARETTES/DAY) cigarettes Packs smoked per day: 0.25 Second hand smoke exposure: No Alcohol intake: current Alcohol intake frequency: holidays/special occasions only Alcohol type: hard liquor Substance/Drug Use: never Physical Exam Const: COMMON NORMALS: no acute distress GENERAL APPEARANCE: cooperative and comfortable ORIENTATION/CONSCIOUSNESS: Yes awake, Yes oriented to person, Yes oriented to place and Yes oriented to time HENMT: COMMON NORMALS: normocephalic, atraumatic and hearing grossly normal bilaterally HEAD & SCALP: normocephalic and atraumatic Resp: COMMON NORMALS: normal respiratory effort, No retractions, No use of accessory muscles and clear to auscultation bilaterally AUSCULTATION: clear to auscultation bilaterally Cardio: COMMON NORMALS: regular rate, regular rhythm and No murmurs present (Cardio) RATE: regular rate RHYTHM: regular rhythm GI: COMMON NORMALS: Soft to palpation and No hepatosplenomegaly present AUSCULTATION: Yes normoactive bowel sounds PALPATION: Yes Soft to palpation, No Tenderness to palpation present (GI), No Guarding due to palpation present (GI) and Yes No hepatosplenomegaly present Extremity: COMMON NORMALS: normal to inspection, capillary refill normal, no clubbing, cyanosis or edema, no calf tenderness and no pedal edema Neuro: SENSORIUM/ORIENTATION: Yes oriented to person, Yes oriented to place and Yes oriented to time Skin: COMMON NORMALS: no rashes or lesions noted GENERAL SKIN EXAM: no rashes or lesions noted Course Vital Signs: Vital signs: Vital Signs Temperature 98.1 F 08/20/25 07:59 Pulse Rate 74 08/20/25 09:19 Respiratory Rate 20 H 08/20/25 07:59 Blood Pressure 125/82 08/20/25 09:19 Pulse Oximetry 98 08/20/25 09:19 Oxygen Delivery Me thod Room Air 08/20/25 07:59 MDM - General Adult Medical Decision Making EKG showed normal sinus rhythm no arrhythmias noted while she was here. Her TSH is slightly out of bed. Her blood pressure is normal tensive. Will refill her Synthroid for she has follow-up appointments with a new primary care doctor to get her other medications reestablished does not refill propranolol for her at this point not sure she would tolerate beta-justine may make her too hypotensive. Medical Records I reviewed the patient's medical records. Lab Data I reviewed the patient's lab results. 08/20/25 08:00 08/20/25 08:00 Radiology Impressions Chest X-Ray 08/20/25 07:46 IMPRESSION: Unremarkable portable chest. Laboratory Results WBC 8.02 10^3/uL (3.29-11.43) 08/20/25 08:00 RBC 4.38 10^6/uL (3.85-5.65) 08/20/25 08:00 Hgb 13.50 g/dL (11.27-16.99) 08/20/25 08:00 Hct 42.0 % (36-47) 08/20/25 08:00 MCV 95.9 fl (85-98) 08/20/25 08:00 MCH 30.8 pg (27-33) 08/20/25 08:00 MCHC 32.1 g/dL (30-55) 08/20/25 08:00 RDW 12.6 % (12.1-15.1) 08/20/25 08:00 Plt Count 296 10^3/cmm (157-399) 08/20/25 08:00 MPV 9.9 fL (7.4-10.4) 08/20/25 08:00 Neut % (Auto) 58.1 % 08/20/25 08:00 Lymph % (Auto) 28.6 % 08/20/25 08:00 [place] % (Auto) 9.7 % 08/20/25 08:00 Eos % (Auto) 2.9 % 08/20/25 08:00 Baso % (Auto) 0.6 % 08/20/25 08:00 Neut # (Auto) 4.66 10^3/uL (1.8-7.7) 08/20/25 08:00 Lymph # (Auto) 2.3 10^3/uL (0.8-4.8) 08/20/25 08:00 [place] # (Auto) 0.8 10^3/uL (0.2-0.9) 08/20/25 08:00 Eos # (Auto) 0.2 10^3/uL (0.0-0.8) 08/20/25 08:00 Baso # (Auto) 0.1 10^3/uL (0.0-0.1) 08/20/25 08:00 Nucleated RBC % (auto) 0 % 08/20/25 08:00 Nucleated RBCs # 0.0 /100WBC 08/20/25 08:00 Sodium 140 mmol/L (136-145) 08/20/25 08:00 Potassium 4.1 mmol/L (3.5-5.1) 08/20/25 08:00 Chloride 106 mmol/L (98-107) 08/20/25 08:00 Carbon Dioxide 24 mmol/L (22-29) 08/20/25 08:00 Anion Gap 14.1 (5-19) 08/20/25 08:00 BUN 16 mg/dL (6-20) 08/20/25 08:00 Creatinine 0.6 mg/dL (0.5-0.9) 08/20/25 08:00 GFR Calculation 113.1 mL/min (90-130) 08/20/25 08:00 Glucose 99 mg/dL (65-115) 08/20/25 08:00 Calculated Osmolality 291 mOsm/kg (285-295) 08/20/25 08:00 Calcium 9.2 mg/dL (8.5-10.5) 08/20/25 08:00 Total Bilirubin 0.2 mg/dL (0.15-1.2) 08/20/25 08:00 AST 12 U/L (0-32) 08/20/25 08:00 ALT 13 U/L (0-33) 08/20/25 08:00 Alkaline Phosphatase 98 U/L (35-105) 08/20/25 08:00 Total Protein 6.6 g/dL (6.6-8.7) 08/20/25 08:00 Albumin 4.1 g/dL (3.5-5.2) 08/20/25 08:00 Globulin 2.5 g/dL (1.3-4.6) 08/20/25 08:00 TSH 7.61 uIU/mL (0.27-4.20) H 08/20/25 08:00 Urine Color Yellow (Yellow) 08/20/25 08:24 Urine Appearance Clear (CLEAR) 08/20/25 08:24 Urine pH 7.0 (5-7) 08/20/25 08:24 Ur Specific [place] 1.021 (1.005-1.030) 08/20/25 08:24 Urine Protein Negative (Negative) 08/20/25 08:24 Urine Glucose (UA) Negative (Normal) 08/20/25 08:24 Urine Ketones Negative (Negative) 08/20/25 08:24 Urine Blood Negative (Negative) 08/20/25 08:24 Urine Nitrate Negative (Negative) 08/20/25 08:24 Urine Bilirubin Negative (Negative) 08/20/25 08:24 Urine Urobilinogen 1.0 mg/dL (Negative) 08/20/25 08:24 Ur Leukocyte Esterase Negative (Negative) 08/20/25 08:24 Urine RBC 0-2 /hpf (0-2) 08/20/25 08:24 Urine WBC 0-5 /hpf (0-5) 08/20/25 08:24 Ur Squamous Epith Cells 0-5 /hpf (0-5) 08/20/25 08:24 Amorphous Sediment Not Reportable 08/20/25 08:24 Urine Bacteria None seen /hpf (NONE) 08/20/25 08:24 Hyaline Casts 0-4 /lpf H 08/20/25 08:24 All radiology interpretation(s) finalized by discharge EKG Data EKG 1: I personally reviewed and interpreted this EKG as follows: Prior EKG tracings: available for review Interpretation: EKG 08/20/2025 8:02 AM sinus rhythm rate of 72. [place] 162 QTc [address] changes noted. No significant abnormality compared to previous EKG reviewed from 03/04/2023. Computer generated interpretation: Chest X-Ray 08/20/25 07:46 IMPRESSION: Unremarkable portable chest. Discharge Plan Discharge Patient Disposition: Home Clinical Impression: Palpitations Hypothyroidism Qualifiers: Hypothyroidism type: unspecified Qualified Code(s): E03.9 - Hypothyroidism, unspecified Condition: Stable Prescriptions: New levothyroxine [Synthroid] 75 mcg tablet 75 mcg PO DAILY Qty: 30 0RF No Action levothyroxine 75 mcg tablet 75 mcg PO BEDTIME ergocalciferol (vitamin D2) 1,250 mcg (50,000 unit) capsule 1,250 mcg PO Q7D Rx Instructions: ON MONDAYS albuterol sulfate [ProAir HFA] 90 mcg/actuation HFA aerosol inhaler 2 puff INHALATION QID PRN (Reason: Shortness Of Breath) Vitamin Plus Low Iron 27 mg iron- 1 mg tablet 1 tab PO BEDTIME cyclobenzaprine 10 mg tablet 10 mg PO TID PRN (Reason: Muscle Spasm) ibuprofen 800 mg Tablet 800 mg PO TID PRN (Reason: Pain) ondansetron 4 mg tablet,disintegrating 4 mg PO Q4H PRN (Reason: Nausea) pantoprazole 40 mg tablet,delayed release (DR/EC) 40 mg PO BID PRN (Reason: Acid Reflux) lorazepam 1 mg tablet 0.5 - 1 mg PO QPM PRN (Reason: Anxiety) zolpidem 10 mg tablet 10 mg PO BEDTIME propranolol 20 mg Tablet 20 mg PO TID 30 Days Qty: 90 1RF hydroxyzine pamoate 25 mg Capsule 50 mg PO Q6H PRN (Reason: Anxiety) 30 Days Qty: 120 1RF escitalopram oxalate 10 mg Tablet 30 mg PO BEDTIME 30 Days Qty: 90 1RF gabapentin 300 mg capsule 300 mg PO DAILY Qty: 60 0RF Rx Instructions: Take 300mg PO QD x 1 day, then 300mg PO BID x 1 day, then 300mg PO TID thereafter diclofenac sodium 75 mg tablet,delayed release (DR/EC) 75 mg PO Q12H PRN (Reason: pain) Qty: 20 0RF tramadol 50 mg tablet 50 mg PO Q6H PRN (Reason: pain) Qty: 7 0RF ondansetron HCl 4 mg tablet 4 mg PO Q6H PRN (Reason: nausea and vomiting) Qty: 20 0RF Lidocaine Viscous 2 % solution 5 ml mucous membrane Q3H PRN (Reason: pain) Qty: 100 0RF peg 3350-electrolytes [Golytely] 236-22.74-6.74 -5.86 gram recon soln 25 ml PO Q1M Qty: 4000 0RF Rx Instructions: until fecal effluent is clear ondansetron 4 mg tablet,disintegrating 4 mg PO Q6H PRN (Reason: nausea and vomiting) Qty: 14 0RF Discharge Orders: Discharge ED (Routine); Ordered 08/20/25 Ordered By: Shen Sinclair Referrals: Varghese,Kendal, DISTRIBUTION ESTIMATOR [Referring, Nurse Practitioner] Discharge Diet: Usual diet Discharge Activity: Resume usual activity Patient Instructions: Opioid Safety, Pain Management, Patient Portal & Alex Instructions Activity Restrictions/Additional Instructions: [facility] It is very important that you follow up as instructed or that you return to the Emergency Department should you have concerns or if your condition changes or worsens in any way. Emergency department visits are focused on emergent conditions, in some cases you may require further evaluation on an outpatient basis. You were seen in the emergency room with complaints of rapid heart rate. Your EKG showed normal sinus rhythm monitoring while you are in the emergency room did not show any arrhythmias or rapid heart rates. Your TSH is slightly elevated we wrote you a prescription to resume your Synthroid. You should follow-up with your primary care doctor as soon as you are able. (Please note that included in your discharge packet is information concerning opioid safety and pain management. This information is given to all patients were discharged from the ER regardless of their discharge diagnosis or the medicines they usually take or are prescribed.) Print Language: Hungarian Coding Level of Care Code ED Machine Overhauler for Julia Emery
--- NOTE | 2025-08-20 08:02 | ECG_ITS ---
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 Measurements Intervals [place] Rate: 72 P: 53 [place]: 162 QRS: 12 QRSD: 82 T: 19 QT: 351 QTc: 386 Interpretive Statements SINUS RHYTHM NONSPECIFIC T-WAVE ABNORMALITY Compared to ECG 03/04/2023 22:26:36 T-wave abnormality now present Electronically Signed On 08-20-2025 18:12:32 [employer] HE[employer] by Pee Ford M.D. [email or web address]
--- OUTSIDE RECORDS SUMMARY | 2025-08-20 08:02 | XMS_ITS | Patient Health Record ---
Author Organization [facility] Address [address] [place] [address] Care Team Providers Care Therapy Tech Name Role Phone Myriam Colón Unavailable [phone] MYRIAM COLÓN Unavailable Unavailable Kendal Varghese Unavailable [phone] Allergies Allergen (clinical drug ingredient) Drug/Non Drug Allergy documented on EMR Reaction Allergy Type Onset Date Status lamotrigine LaMICtal rash Drug Allergy Activ e bismuth subsalicylate Pepto-Bismol vomiting Drug Allergy Active oxcarbazepine Trileptal rash Drug Allergy Act vinod morphine Morphine itching Drug Allergy Active Results Component Value Reference Range Notes Fingers [id number] Reviewed date:03/06/2025 06:06:32 AM Interpretation: Performing Lab: [...] prn muscle spasms; Duration: 30 days Active M-Delfino Plus 27-1 MG Tablet TAKE ONE TAB [...] days Not-Taking Vitamin D (Ergocalciferol) 1.25 MG (22157 UT) Capsule TAKE ONE CAPSULE BY MOUTH [...] drink alcohol? Yes, occas ionally Section Notes: Depression screen completed 03/19/2023 score 15 03/10/2022 03/10/2022 03/10/2022 03/10/2022 Depression screen completed 03/19/2023 score 15 Depression screen completed 03/19/2023 score 15 Depression screen completed 03/19/2023 score 15 Problems Problem Type SNOMED Code ICD Code Onset Dates Problem Status W/U Status Risk Notes Problem Mixed hyperlipidemia (991040246) Mixed hyperlipidemia (E78.2) Active confirmed Problem Tobacco user (474918587) Nicotine dependence, cigarettes, uncomplicated (F17.210) Active confirmed Problem Primary insomnia (5468607) Primary insomnia (F51.01) Active confirmed Problem Gastroesophageal reflux disease without esophagitis (540526674) Gastroesophageal reflux disease without esophagitis (K21.9) Active confirmed Problem Anxiety (55926929) Anxiety (F41.9) Active confi rmed Problem Gastroesophageal reflux disease (252876951) GERD without esophagitis (K21.9) Active confirmed Problem Influenza (8189640) Influenza (J11.1) Active co nfirmed Problem Acute non-suppurative otitis media - serous (204099579) Non-recurrent acute serous otitis media of left ear (H65.02) Active confirmed Problem Exacerbation of moderate persistent asthma (disorder) (252381977) Moderate persistent asthmatic bronchitis with acute exacerbation (J45.41) Active confirmed Problem Insomnia (495126643) Insomnia (G47.00) Active confirmed Problem Migraine with aura (6576097) Migraine with aura and without status migrainosus, not intractable (G43.109) Active confirmed Problem Candidiasis of mouth (52678332) Thrush, oral (B37.0) Active confirmed Problem Febrile illness (125750451) Febrile illness (R50.9) Active confirmed Problem Diabetes mellitus screening (833593120) Diabetes mellitus screening (Z13.1) Active confirmed Problem Acquired hypothyroidism (879360235) Acquired hypothyroidism (E03.9) Active confirmed Problem Memory problem (297870864) Memory problem (R41.3) Active confirmed Problem Depression (016097872) Other depression (F32.89) Active confirmed Problem Morbid obesity (481015927) Morbid obesity (E66.01) Active confirmed Problem Lipid screening (755229984) Lipid screening (Z13.220) Active confirmed Problem Supraventricular tachycardia (7718507) SVT (supraventricular tachycardia) (I47.1) Active confirmed Problem Body mass index 35.00 to 39.99 (958105112980910) Body mass index [BMI] 37.0-37.9, adult (Z68.37) Active confirmed Problem Encounter for screening for COVID-19 (Z11.52) Active confirmed Problem Acute cough (344243117261130526 ) Acute cough (R05.1) Active confirmed Problem Long-term current use of drug therapy (473678643) senior living current use of antiarrhythmic medical therapy (Z79.899) Active confirmed Problem Vaginal candidiasis (86796052) Vaginal candidiasis (B37.31) Active confirmed Encounters Encounter Location Date Provider Diagnosis [address] [id number] 09/27/2024 [facility] Plan Of Treatment No Information Insurance Providers Payer Name Payer Address Payer Phone Subscriber Number Group Number Insured Name Patient Relationship to Insured Coverage Start Date Coverage End Date [facility] Medicaid Replacement [address] [place] [phone] [id number] Noemi Patel Self - patient is the insured Medications Administered Medication Instructions Date of Administration Dosage Notes DEPO-Medrol 04/27/2022 40 mg NDC; [address]-73 Patient tolerated well, advised to wait 20 min at clinic DEPO-Medrol 09/22/2022 40 mg ndc 0775-6602 -01 pt tolerated well/instructed to wait 20 min dexAMETHasone 04/27/2022 4 mg NDC: 15469- 239-30 dexAMETHasone 09/22/2022 [place] [address]-2 39-30 pt tolerated well/instructed to wait 20 min Rocephin 04/27/2022 250 mg NDC: 53218-445-64 Patient tolerated well, advised to wait 20 min at [facility] Rocephin 09/22/2022 1 g nd 9119-8987- 11 pt tolerated well/instructed to wait 20 [...]
[2025-08-20 08:10] LABS: Hematocrit 42.0 % (36-47); Hemoglobin 13.50 g/dL (11.27-16.99); Mean Corpuscular HGB Conc 32.1 g/dL (30-55); Mean Corpuscular Hemoglobin 30.8 pg (27-33); Mean Corpuscular Volume 95.9 fl (85-98); Nucleated Red Blood Cells % 0 %; Platelet Count 296 10^3/cmm (157-399); Red Blood Count 4.38 10^6/uL (3.85-5.65); White Blood Count 8.02 10^3/uL (3.29-11.43)
[2025-08-20 08:37] LABS: Alanine Aminotransferase 13 U/L (0-33); Albumin Level 4.1 g/dL (3.5-5.2); Alkaline Phosphatase 98 U/L (35-105); Anion Gap 14.1 (5-19); Aspartate Amino Transferase 12 U/L (0-32); Blood Urea Nitrogen 16 mg/dL (6-20); Calcium 9.2 mg/dL (8.5-10.5); Carbon Dioxide 24 mmol/L (22-29); Chloride 106 mmol/L (98-107); Creatinine Clr Calc Pharmacy 164.7367; Globulin 2.5 g/dL (1.3-4.6); Glucose 99 mg/dL (65-115); Osmolality Calculated 291 mOsm/kg (285-295); Potassium 4.1 mmol/L (3.5-5.1); Sodium 140 mmol/L (136-145); Thyroid Stimulating Hormone 7.61 uIU/mL (0.27-4.20); Total Protein 6.6 g/dL (6.6-8.7)
[2025-08-20 08:47] LABS: Glucose Urine UA Negative (Normal); Nitrate Urine Negative (Negative); Specific Gravity, Urine 1.021 (1.005-1.030)
[2025-08-20 08:49] LABS: Add Urine Microscopic? YES
[2025-08-20 09:05] VITALS: BP 125/82; PULSE 81; O2SAT 97
[2025-08-20 09:19] VITALS: BP 125/82; PULSE 74; O2SAT 98
--- NOTE | 2025-08-20 10:13 | DCPLANNER ---
messaged heart care for holter
== END 2025-08-20 09:41 | disposition home or self-care (01) ==
PROVIDERS: Emergency Provider Family Medicine
DX: R00.2 Palpitations (principal); E03.9 Hypothyroidism, unspecified; F17.210 Nicotine dependence, cigarettes, uncomplicated
CPT/HCPCS: 36415; 71045; 80053; 81001; 84443; 85025; 93005; 99285

== ENCOUNTER → 2025-09-27 09:54 | Outpatient (BNVA) | payer MEDICAID, SELFPAY | PROVIDERS: PCP Family Medicine; Visit Provider Family Medicine | DX: G62.9 Polyneuropathy, unspecified (principal) | CPT/HCPCS: 82306; 82607; 82746; 84443 ==